=== PATIENT | male | born 1980 | race Caucasian/White ===

== ENCOUNTER 2024-06-19 07:48 | Outpatient (OUT) | payer OTHER, SELFPAY ==
--- NOTE | 2024-06-19 07:57 | CA_ITS ---
Patient Name: ELEAZAR HARRISON MR#: [id number] : 1980 Exam Date: 06/19/2024 Ordering Doctor: SARAH SANTOS ECHOCARDIOGRAM REPORT PROCEDURE: CA ECHO W/ CON INDICATIONS: JOHNSON COMPARISON: None. DESCRIPTION: COMPLETE ECHOCARDIOGRAM Real-time transthoracic echocardiography with 2D, M-mode, spectral and color flow Doppler performed. QUALITY: Technical quality was good. LEFT VENTRICLE: Normal chamber size. Normal left ventricular wall thickness. Global left ventricular systolic function is mildly decreased. Visual estimation of left ventricular ejection fraction is 45-50%. Abnormal septal motion due to paced rhythm LV EF: DIASTOLIC: ATRIAL SEPTUM: LEFT ATRIUM: Normal chamber size. RIGHT ATRIUM: Mild dilatation. RIGHT VENTRICLE: Mild dilatation. Normal right ventricular systolic function. Pacer wire present. TRICUSPID VALVE: Normal mobility and thickness. No stenosis with trivial regurgitation. No evidence of pulmonary hypertension. RVSP 28mmHg MITRAL VALVE: Normal mobility and thickness. No evidence of mitral valve stenosis. There is no mitral annular calcification. Trivial mitral regurgitation. AORTIC VALVE: Normal trileaflet appearance. No visible sclerosis. Normal leaflet mobility. No evidence of aortic valve stenosis. No aortic regurgitation. AORTIC ROOT: Normal diameter and appearance. PULMONIC VALVE: Normal thickness and mobility. No stenosis. No regurgitation. PERICARDIUM: Anterior free space C/W fatty tissue IVC: Collapes with inspirations. Normal size. PLEURA: CONCLUSION: Normal left ventricle chamber size. Normal left ventricular wall thickness. Global left ventricular systolic function is mildly decreased. Visual estimation of left ventricular ejection fraction is 45-50%. Abnormal septal motion due to paced rhythm Mild RV dilatation. Normal right ventricular systolic function. Pacer wire present. Normal right sided pressures Trace mitral and tricuspid regurgitation Adult Echocardiography Procedure Report Left Ventricle LVEDD (3.7 - 5.6 cm): 5.13 cm LVESD (2.2 - 4.0 cm): 3.34 cm LVIVS thickness (0.6 - 1.2 cm): 0.87 cm LVPW thickness (0.5 - 1.0 cm): 0.94 cm e': 0.09 m/s E - e': 8.42 LVOT Max Gradient: 2.61 mm[Hg] LVOT Area (cm2): 0.81 m/s Peak Velocity (LVOT): 0.81 m/s Mean Velocity (LVOT): 0.52 m/s LVOT Diameter 1.95 cm Left Ventricular Ejection Fraction: 52.00 % Left Atrium LA Volume Index (2D A2C): 34.37 ml/m2 Left Atrium Systolic Dimension: 3.99 cm Mitral Valve MV E to A Ratio: 1.22 MV Max Gradient: MV Mean Gradient: Mitral Valve A-Wave Peak Velocity: 0.60 m/s Mitral Valve E-Wave Peak Velocity: 0.73 m/s Cardiovascular Orifice Area: Right Ventricle RV Internal Diastolic Dimension: 3.99 cm Aorta AO Root Diam: 2.96 cm Ascending Ao Diam: 2.77 cm Aortic Valve AoV Area (Peak Nickolas): 2.22 cm2, 2.22 cm2 AoV Area (VTI): 2.75 cm2, 2.[address]: Pressure Half-Time: Peak Velocity(Antegrade Flow): 1.09 m/s Peak Gradient(Antegrade Flow): 4.74 mm[Hg] Mean Velocity(Antegrade Flow): 0.81 m/s Mean Gradient(Antegrade Flow): 2.97 mm[Hg] Velocity Time Integral: 22.29 cm Tricuspid Valve Peak Velocity (Regurgitant Flow): 2.51 m/s, 2.40 m/s, 2.46 m/s Peak Velocity: Pulmonic Valve Mean Gradient: 2.76 mm[Hg], 3.16 mm[Hg], 3.95 mm[Hg] Mean Velocity: 0.77 m/s, 0.83 m/s, 0.92 m/s Peak Velocity: 1.25 m/s Peak Gradient: 5.31 mm[Hg], 6.00 mm[Hg], 7.51 mm[Hg] Right Atrium Right Atrium Systolic Pressure: 79.62 ml, 79.62 ml Dictated by: Casey Berry MD on 06/19/2024 at 16:55 Approved by: Casey Berry MD on 06/19/2024 at 17:21
[2024-06-19] MEDS: SULFUR HEXAFLUORIDE MICROSPHR 25 MG/5 ML VIAL IV (09:17)
== END 2024-06-19 07:49 | disposition home or self-care (01) ==
LOC: CARD 07:49
PROVIDERS: PCP Nurse Practitioner Family; Visit Provider Internal Medicine Cardiovascular Disease
DX: R06.09 Other forms of dyspnea (principal)
CPT/HCPCS: 71046; C8929; Q9950

== ENCOUNTER 2024-06-19 08:56 | Outpatient (OUT) | payer OTHER, SELFPAY ==
--- NOTE | 2024-06-19 08:59 | XR_ITS ---
The [address] [address] Patient Name: ELEAZAR HARRISON MRN: [id number] date: 1980 Sex: M Assigned Patient Location: RAD Current Patient Location: RAD Accession/Order Number: [id number] Exam Date: 06/19/2024 09:03 Report Date: 06/19/2024 12:51 At the request of: SARAH SANTOS Procedure: XR chest 2V PROCEDURE: XR chest 2V DATE: 06/19/2024 9:03 AM EST COMPARISONS: 02/20/2011 CLINICAL INDICATION: 43 years Male Dyspnea On Exertion FINDINGS: The cardiomediastinal silhouette and pulmonary vasculature are within normal limits. Electronic cardiac device overlying the upper left chest is stable in appearance and position. The lungs are clear. There is no evidence of pleural effusion or pneumothorax. XR/XR chest 2V IMPRESSION: Chest radiograph is within normal limits. Electronically authenticated by: PANKAJ MAURICIO Date: 06/19/2024 12:51
== END 2024-06-19 08:57 | disposition home or self-care (01) ==
LOC: RAD 08:56
PROVIDERS: PCP Nurse Practitioner Family; Visit Provider Internal Medicine Cardiovascular Disease
DX: R06.09 Other forms of dyspnea (principal)
CPT/HCPCS: 71046

== ENCOUNTER 2025-04-17 07:38 | Outpatient (OUT) | payer OTHER, SELFPAY ==
--- OUTSIDE RECORDS SUMMARY | 2025-03-14 04:34 | XMS_ITS | Continuity of Care Document ---
Author Box [facility] Address [address] [facility] [place] [address] Phone Care Team Providers Care Cyber Workforce Developer And Manager Name Role Phone Sara Yee CNP, CNP Unavailable Un available Allergies, Adverse Reactions, Alerts Substance Reaction Status Criticality No Known Allergies Active No Inform ation Medications Medication Instructions Dosage Effective Dates (start - stop) Status Comments azelastine 137 mcg (0.1 %) nasal spray instill 2 sprays into each nostril once daily - Active fluticasone propionate 50 mcg/actuation nasal spray,suspension spray 2 sprays in each nostril once daily - Active buspirone 15 mg tablet TAKE 1 TABLET TWICE A DAY - Active Zoloft 100 mg tablet take 1 tablet by or al route every day 100 MG - Active doxepin 75 mg capsule take 1 capsule by oral route every day at bedtime 75 MG - Active Zyrtec 10 mg tablet take 1 tablet by ora l route every day 10 MG - Active lisinopril 5 mg tablet take 1 tablet by oral route every day 5 MG - Active Procedures Procedure Date NASAL ENDOSCOPY, DX OFFICE/OUTPATIENT VISIT, NEW OFFICE/OUTPATIENT VISIT, EST Complex e/m visit add on IMMUNIZATION ADMIN FLU VACCINE NO PRESERV 3 & > OFFICE/OUTPATIENT VISIT, NEW OFFICE/OUTPATIENT VISIT, [facility] OFFICE/OUTPATIENT VISIT, [facility] INFLUENZA ASSAY W/OPTIC INFLUENZA ASSAY W/OPTIC Advance Directives Directive Yes / No Effective Date File Name No Information Encounters Encounter Description Practice Location Reason(s) For Visit Diagnoses Date Provider Providers Copied on Encounter [facility], [address] [place] [address] B, [place], [place], [id number] , tel:[phone] Formerly [facility] No Information 5 Paulette Ruiz. [address] [facility], [place], [place], [id number], [place]. tel:[phone] OFFICE/OUTPA TIENT VISIT, [facility], [address] [place] [address] B, [place], [place], [id number] , [place] tel:[phone] [facility] Sinus issues (chief complaint) Nasal congestionPo stnasal dripDeviated nasal septumOther chronic sinusitisOSA (obstructive sleep apnea)Allerg ic rhinitis, unspecified seasonality, unspecified triggerVitam in D deficiencyNa emerson turbinate hypertrophy 5 Ben Tucker. [address], [place], [place], [id number], [place]. tel:[phone] Referring Provider: Caitlin Contreras MD, [address], [place], [address]. tel:[phone] OFFICE/OUTPA TIENT VISIT, [facility], [address] [place] [address] B, [place], [place], [id number] , [place] tel:[phone] [facility] Follow Up of Anxiety (chief complaint)Fol low Up of Hypertension (chief complaint)RONALD (chief complaint) Essential hypertension Anxiety, generalizedI nsomnia, unspecified typeObstruct lj sleep apneaSick sinus syndromePres ence of cardiac pacemaker 5 Zakiya Garcia. [address] [facility], [id number]. E, [place], [place], [id number], [place]. tel:[phone] Referring Provider: Radha ROTHC, [address] [place] [address] [id number] , [place], [address]. tel:[phone] OFFICE/OUTPA TIENT VISIT, [facility], [address] [place] [address] [address], [place], [place], [id number] , [place] tel:[phone] [facility] establish (chief complaint)Dep ression (chief complaint)blo od pressure (chief complaint)sin us pressure (chief complaint) Essential hypertension Anxiety, generalizedA cute non-recurren t maxillary sinusitis 5 Paulette Ruiz. [address] [place] [address], [place], [place], [id number], [place]. tel:[phone] Referring Provider: Sara fox SOLUTION DESIGNER, [address] [place] [address], [place], [address]. tel:[phone] OFFICE/OUTPA TIENT VISIT, [facility], [address] [place] [address] [address], [place], [place], [id number] , [place] tel:[phone] [facility] rash (chief complaint) Herpes zoster without complication Harvey Correia. [address], [place], [id number], [place]. tel:[phone] Referring Provider: Bren Gabriel PA-C, [address] [place], [address]. tel:[phone] OFFICE/OUTPA TIENT VISIT, [facility], [address] [place] [address] [address], [place], [place], [id number] , [place] tel:[phone] [facility] URI (chief complaint) Flu-like symptomsAcut e bronchitis due to other specified organisms 9 Radha Ervin. [address] [place], [id number], [place]. tel:[phone] Referring Provider: Aziza Garcia CNP, [address] [place], [address]. tel:[phone] Family History Family Member Type Diagnosis Age At Onset Mother Problem (finding) congestive heart failur e Mother Problem (finding) asthma Immunizations Vaccine Date Status Comments Influenza, seasonal, injectable administered Source: New Immuniza tion Record Influenza, injectable, quadrivalent, preservative free, 0.5 mL dosage, Fluarix\Fluzone\Flulaval Quad administered Source: Boxever Agetx Elastera SARS-COV-2 (COVID-19) vaccin e, mRNA, spike protein, LNP, preservative free, 30 mcg/0.3 mL dose , 12 years of age and older (CogMetal Comirnaty) administered Source: Buyospheretx y Tdap administered Source: Public Agency Payers Payer name Insurance type Covered alliance party ID Authoriza tion(s) [facility] [id number] [facility] [id number] Social History Type Description Quantity Date Captured Comments Sex Male Smoking Status No Information Chief Complaint And Reason For Visit No Information Reason For Referral Reason For Referral No Information Plan Of Treatment Date Type Action Status Goal Depression scree zach. Due on due Goal EKG. Due on due Goal Unhealthy drug u se screening. Due on due Goal PSA Screening. Due on due Goal DEXA Scan. Due on due Goal Influenza vaccin e. Due on due Goal FIT. Due on due Goal Tobacco screenin g. Due on due Goal URINALYSIS NONAU TO W/O SCOPE. Due on due Goal FIT-DNA. Due on due Goal Glucose. Due on due Goal CT-Colonography. Due on due Goal Hepatitis C scre ening. Due on due Goal ECG. Due on due Goal BMP. Due on due Goal Urinalysis. Due on 25 due Goal Lipid Panel. Due on 025 due Goal Diabetes screeni ng. Due on due Goal Tdap. Due on due Goal Tdap. Due on due Goal EKG. Due on due Goal Glucose. Due on due Goal Hepatitis C scre ening. Due on due Goal FIT-DNA. Due on due Goal Influenza vaccin e. Due on due Goal Depression scree zach. Due on due Goal URINALYSIS NONAU TO W/O SCOPE. Due on due Goal DEXA Scan. Due on due Goal CT-Colonography. Due on due Goal Tobacco screenin g. Due on due Goal FIT. Due on due Goal Unhealthy drug u se screening. Due on due Goal PSA Screening. Due on due Goal Urinalysis. Due on due Goal BMP. Due on due Goal ECG. Due on due Goal Diabetes screeni ng. Due on due Goal Lipid Panel. Due on due Goal Diabetes screeni ng. Due on due Goal ECG. Due on due Goal BMP. Due on due Goal Urinalysis. Due on due Goal Lipid Panel. Due on due Goal Tdap. Due on due Goal URINALYSIS NONAU TO W/O SCOPE. Due on due Goal Hepatitis C scre ening. Due on due Goal Tobacco screenin g. Due on due Goal Depression scree zach. Due on due Goal EKG. Due on due Goal Influenza vaccin e. Due on due Goal PSA Screening. Due on due Goal Unhealthy drug u se screening. Due on due Goal Glucose. Due on due Goal DEXA Scan. Due on due Goal Depression scree zach. Due on due Goal Lipid panel. Due on 021 due Goal Td vaccine. Due on 21 due Goal DEXA Scan. Due on due Goal Tdap. Due on due Goal URINALYSIS NONAU TO W/O SCOPE. Due on due Goal Influenza vaccin e. Due on due Goal PSA Screening. Due on due Goal Glucose. Due on due Goal Diabetes Screeni ng. Due on due Goal Glucose. Due on due Goal Depression scree zach. Due on due Goal Lipid panel. Due on 019 due Goal Td vaccine. Due on 19 due Goal DEXA Scan. Due on 9 due Goal Tdap. Due on due Goal URINALYSIS NONAU TO W/O SCOPE. Due on due Goal Influenza vaccin e. Due on due Goal EKG. Due on due Appointment Balbir Jackman BOOKED Appointment Balbir Jackman BOOKED Patient Education Shingles: Care Instruct ions completed Future Order: Lab Order Vitamin D, 25-OH Total ([id number]), Sent on: Sent Future Order: Radiology Order CT Sinus w/o Contrast ([id number]), Sent on: Sent History Of Present Illness Encounter Date Complaint History Of Prese nt Illness Sinus issues Patient has RONALD and had pacemaker placed at age 25 d/t viral infection. Patient c/o recurrent sinus infections and has been treated 4 times in the past year usually with augmentin or amoxicillin, often adding steroid. Last sinus CT was done 4 years ago in [place]. Fractured nose in high school sports. Follow Up of Hypertension Risk f actors include male gender. Pertinent negatives include fatigue. Additional information: managed by cardiology, patient had new pacemaker device placed 11/10/[address] [facility]. And sees cardiology every 6 months. He has heart failure Comments: He is getting an echo rechecked in May. He is seeing cardiology at [facility]. He states he may need a defibrillator at a later date. He was having syncope everyday but since they changed his leads he has only passed out 2-3 times since. Denies chest pain, SOB. He states he has more energy. He states he gets labs from [facility] or [facility]. He states he has history of Sick sinus syndrome and heart failure Follow Up of Anxiety The patient presents with difficulty falling asleep and difficulty staying asleep but denies anxious/fearful thoughts, depressed mood, difficulty concentrating, fatigue, racing thoughts, restlessness or thoughts of or suicide. Comments: He wak es up 2-3am and then takes a couple hours to fall asleep. He states his anxiety is doing. 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 Contreras this month due to chronic sinus infections. Comments: Pt has had sinus pressure for 3 weeks. Blowing green nasal drainage. No ear pain or throat pain. Taking Claritin and using flonase. Also taking Coricidin HBP and Mucinex. Comments: Pt fee ls like medication control anxiety well. Taking Zoloft daily and Buspar twice daily. Comments: Pt was seeing provider in [place], they were switching providers there every 3 months and it was getting frustrated. Pt follows with Cardiology for pacemaker. Will be having surgery soon due to heart wire going bad. Pt follows with [facility] for vision care.Not currently seeing dentist.Has labs done through [facility] in April 2024. blood pressure Depression The patient naeem es any headache. Additional information: Pt currently taking buspirone 15mg 2x daily. establish pt here to jazmin roberts PCP sinus pressure rash (comments) Patient here for evaluation of rash that he believes is shingles. He states he had shingles in 2010. He was never treated for it because it was crusted over before he was evaluated. He is in significant pain in his right axilla.He is especially concerned because his son is immunocompromised.He 1st noticed symptoms on , with itching pain. He thinks he scratched during night it is increased with pain and more blisters been forming through this morning. rash The client prese nts for rash originally diagnosed in 2010. This episode began 3 days ago. The symptom(s) are described as severe and worse. Affected area(s) include R UNDERARM. The client describes the affected area(s) as burning, itchy, oozing, red, stinging and VERY PAINFUL. Aggravating factors include clothing. The symptoms did not improve with calamine lotion or PAIN MEDICATION. Associated symptoms include crusting, erythema (skin), fatigue, myalgia, painful rash and pruritus. Additional information: HAD MILD SHINGLES ON STOMACH 2010... PT STATES HIS PAIN LEVEL IS A 6/10. LOW GRADE FEVER LAST NIGHT OF 100.5. URI (comments) He started with the fever and cough, and body aches. His daughter also has been sick with a cough and an ear ache. URI The symptoms beg an on 09/27/2018. The symptoms have worsened. The patient presents with chills, cough (cough is non-productive), fever (maximum temperature is 103 F), headache and nausea. The patient does not present with abdominal pain, fatigue, myalgia or vomiting. Additional information: Patient reports taking 800mg of Ibuprofen today at 8:30am. Functional Status Date Functional Assessmen t No Information Instructions Date Instruction Additional Infor lai Has been having trou ble staying asleepOn doxepin 50mg at bedtime. Increase dose to 75mg at bedtimeF/U in 6 months, sooner if needed Related to Insomnia, unspecified type On CPAP at bedtime. Actively managed by pulmonology-records requestedF/U in 6 months and as scheduled with specialist Related to Obstructive sleep apnea Actively managed by cardiology at [facility], sooner if needed Related to Sick sinus syndrome Active management pe r Cardiology at [facility] and sees Dr. Juarez at [facility]-records requested On lisinopril dailyEncourage a Mediterranean diet and exerciseF/U in 6 months Related to Essential hypertension Stable. On sertralin e and Buspar. No SE. Continue current doseF/U in 6 months Related to Anxiety, generalized Symptoms well contro lled taking Sertraline and Buspar.Sleeping well taking Doxepin.Continue to monitor symptoms.F/U in 6 months and prn. Related to Anxiety, generalized Rest. Drink plenty o f fluids.Continue taking allergy medications.Discussed benefits and side effects of Augmentin, take as directed. Motrin or Tylenol OTC as directed prn.F/U if symptoms persist or worsen.Pt states chronic sinus infections, discussed CT sinuses for recurrent symptoms and or refer to ENT. Pt voices understanding. Related to Acute non-recurrent maxillary sinusitis Active management per Cardiology . Related to Essential hypertension Medications as presc ribed. Recommend acetaminophen/ibuprofen as needed for pain. Return to [facility] in not improving 3-5 days. Avoid people who are at risk for infection, e.g people who were never exposed to chicken pox, or on chemotherapy. Related to Herpes zoster without complication Begin tapered predni sone as prescribed and continue with rest and fluids. Add Tessalon Perles /to be used as needed for relief of cough. Follow up if not improved with this illness in 10 days. Related to Acute bronchitis due to other specified organisms the flu testing has come back negative. Discussed with the patient his symptoms still suggest he may have had influenza in the beginning of this illness. Related to Flu-like symptoms Assessments Type Assessment Date No Information Patient Care Teams Name Effective Dates (start - stop) Status Members No Information
--- OUTSIDE RECORDS SUMMARY | 2025-04-17 07:42 | XMS_ITS | Encounter Summary ---
Author Organization [facility] Address [address] [place] [address] Care Team Providers Care Board Attendant Name Role Phone Edwin Mcgowan MD Primary Care Provider [phone] Virgilio Pena MD Unavailable Andrea Galvez MD Unavailable Erwin Waite MD Unavailable [phone] Sara Yee PATENT COUNSEL Primary Care Provide r Source Comments In the event this information is protected by the Federal Confidentiality of Alcohol and Drug AbusePatient Records regulations: The Federal rules restrict any use of the information to criminally investigate or prosecute any alcohol or drug abuse patient.[facility] Encounter Details Date Type Department Care Team (Late st Contact Info) Description 09/29/2024 Get Medical Advice Cardiology [address] [place] [address] Mario Juarez MD [address] [place] [address] Scheduling testing before surgery Social History Tobacco Use Types Packs/Day Years Used Date Smoking Tobacco: Former Cigarettes 1 7 1 08/12/1998 - 06/11/2006 Smokeless Tobacco: Current Chew Alcohol Use Standard Drinks/Week Comments Not Currently 0 (1 standard drink = 0.6 oz pur e alcohol) [facility] Area Deprivation Index Answer Date Ronaldo rded National Score (1-100), lower number is lower ri sk 81 06/01/2024 State Score (1-10), lower number is lower risk 7 06/01/2024 Data from: https://www.neighborhoodatlas.medicine.[facility].edu/. Last address used for calculation [address] 06/01/2024 Sex and Gender Information Value Date Recorded Sex Assigned at Male 10/07/2020 7:02 AM EDT Legal Sex Male 7:31 AM EST Gender Identity Male 10/07/2020 7:02 AM EDT Sexual Orientation Straight 10/07/2020 7: 02 AM EDT documented as of this encounter Plan of Treatment Not on file documented as of this encounter Goals Goal Patient Goal Type Associated Problems Recent Progress Patient-Stated? Author Blood Pressure < 130/80 Blood Pressure 135/77( 025 9:37 AM EDT) No Andrea Galvez MD documented as of this encounter Visit Diagnoses Not on filedocumented in this encounter Care Teams Board Attendant Relationship Specialty Start Date End Date Edwin Mcgowan MD [address] [place] [address] PCP - General Family Medicine 10/07/20 10/15/24 Sara Yee CNP [facility] [place] [address] PCP - General Family Medicine 10/16/24 [place] [address] [place] [address] [facility] 10/07/20 Andrea Galvez MD [address] [place] [address] Primary Staff Physician Cardiology 06/01/24 Erwin Waite MD [address] [address] [facility] 08/14/24 10/15/24 documented as of this encounter
--- OUTSIDE RECORDS SUMMARY | 2025-04-17 07:42 | XMS_ITS | Encounter Summary ---
Author Organization [facility] [employer] [facility] [employer] Address [id number] [address] [place] [address] Care Team Providers Care Home Aid Name Role Phone Services, [facility] Primary Care Provider Encounter Details Date Type Department Care Team (Late st Contact Info) Description 01/04/2024 [facility]phone [facility] [address] [phone] Sheeba Villalta Social History Tobacco Use Types Packs/Day Years Used Date Smoking Tobacco: Former Cigarettes 2 7 0 11/09/1996 - 11/10/2003 Smokeless Tobacco: Current Chew Alcohol Use Standard Drinks/Week Comments Yes 0 (1 standard drink = 0.6 oz pur e alcohol) 1-2 times per year Childcare Answer Date Recorded Childcare Unknown 12/21/2018 Employment Answer Date Recorded Employment Unknown 12/21/2018 Purpose - Life Answer Date Recorded Purpose and direction in life Unknown Sex and Gender Information Value Date Recorded Sex Assigned at Not on file Legal Sex Male 12:08 PM EDT Gender Identity Not on file Sexual Orientation Not on file documented as of this encounter Miscellaneous Notes * Telephone Encounter - Sheeba Villalta - 01/04/2024 9:53 AM EDT PATIENT HAS BEEN A NO SHOW FOR HIS LAST 2 APPOINTMENTS WITH NICKI ORELLANA PLEASE CHECK IN WITH NURSE BEFORE RESCHEDULING PLEASE documented in this encounter Plan of Treatment Upcoming Encounters Date Type Department Care Team (Late st Contact Info) Description 06/20/2025 2:30 PM EST Office Visit [facility] [address] [address] Nicki Orellana, HEATER ROOM HELPER-DOMESTIC HOUSEKEEPER [address] [facility] [facility], [address] [place] [address] documented as of this encounter Visit Diagnoses Not on filedocumented in this encounter Care Teams Home Aid Relationship Specialty Start Date End Date Services, [facility] [address] [place] PCP - General Family Medicine 04/24/20 documented as of this encounter
--- OUTSIDE RECORDS SUMMARY | 2025-04-17 07:42 | XMS_ITS | Clinical Summary ---
Author Organization [facility] Address [address], [address] [place] [address] Care Team Providers Care Lavatory Attendant Name Role Phone Lissa Galindo APRN, NP Primary Care Provider + Allergies No known active allergies Medications metoprolol succinate ER (TOPROL-XL) 50 MG XL tablet Take 50 mg by mouth 2 times daily Active sertraline (ZOLOFT) 100 MG tablet Take 150 mg by mouth daily Active pravastatin (PRAVACHOL) 20 MG tablet Take 20 mg by mouth daily Active doxepin (SINEQUAN) 10 MG capsule Take 10 mg by mouth nightly Active Social History Tobacco Use Types Packs/Day Years Used Date Smoking Tobacco: Never Smokeless Tobacco: Current Chew Sex and Gender Information Value Date Recorded Sex Assigned at Not on file Legal Sex Male 9:19 AM EST Gender Identity Not on file Sexual Orientation Not on file Last Filed Vital Signs Vital Sign Reading Time Taken Comments Blood Pressure 113/70 04/15/2022 11:41 PM EDT Pulse 72 04/15/2022 11:41 PM EDT Temperature 36.8 C (98.2 F) 04/15/2022 7:53 PM EDT Respiratory Rate 19 04/15/2022 10:26 PM EDT Oxygen Saturation 97% 04/15/2022 11:41 PM EDT Inhaled Oxygen Concentration - - Weight 109.8 kg (242 lb) 04/15/2022 7:51 PM EDT Height 180.3 cm (5' 11 ) 04/15/2022 7:51 PM EDT Body Mass Index 33.75 04/15/2022 7:51 PM EDT Plan of Treatment Not on file Procedures Procedure Name Priority Date/Time Associated Diagnosis Comments LIPID PANEL Routine 02/01/2014 9:19 AM EDT from Last 3 Months or Most Recently Relevant to Health Maintenance Results * (ABNORMAL) Lipid panel (02/01/2014 9:19 AM EDT) Cholesterol 184 <200 mg/dL 02/01/2014 10:50 AM EDT [facility] Comment: Cholesterol Guidelines: <200 Desirable 200-240 Borderline >240 Undesirable HDL 34(L) >40 mg/dL 02/01/2014 10:50 AM EDT [facility] Comment: HDL Guidelines: <40 Undesirable 40-59 Borderline >59 Desirable LDL Cholesterol 120 0 - 130 mg/dL 02/01/2014 10:50 AM EDT [facility] Comment: LDL Guidelines: <100 Desirable 100-129 Near to/above Desirable 130-159 Borderline >159 Undesirable Direct (measured) LDL and calculated LDL are not interchangeable tests. Chol/HDL Ratio 5.0(H) <5 02/01/2014 10:50 AM EDT [facility] Triglycerides 151(H) <150 mg/dL 02/01/2014 10:50 AM EDT [facility] Comment: Triglyceride Guidelines: <150 Desirable 150-199 Borderline 200-499 High >499 Very high Based on AHA Guidelines for fasting triglyceride, April 2012. VLDL 30 1 - 30 mg/dL 02/01/2014 10:50 AM EDT [facility] Comment: Performed at [address] [place] [address] [phone] 02/01/2014 9:19 AM EDT 02/01/2014 9:20 AM EDT us Erwin Waite MD CHEMISTRY ORDERABLES Final Re sult [facility] [address] [place] [id number], [facility] [phone] [facility] from Last 3 Months or Most Recently Relevant to Health Maintenance Insurance [employer] Care Teams Lavatory Attendant Relationship Specialty Start Date End Date Lissa Galindo APRN - NP [address] [place] [id number] PCP - General 04/15/22
--- OUTSIDE RECORDS SUMMARY | 2025-04-17 07:42 | XMS_ITS | Encounter Summary ---
Author Organization [facility] Address [address] [place] [address] Care Team Providers Care Dress Cutter Name Role Phone Virgilio Pena MD Unavailable Andrea Galvez MD Unavailable Sara Yee [facility] Primary Care Provide r Source Comments In the event this information is protected by the Federal Confidentiality of Alcohol and Drug AbusePatient Records regulations: The Federal rules restrict any use of the information to criminally investigate or prosecute any alcohol or drug abuse patient.[facility] Encounter Details Date Type Department Care Team (Late st Contact Info) Description 11/09/2024 Get Medical Advice Cardiology [address] [place] [address] Mario Juarez MD [address] [place] [address] Surgery tomorrow Social History Tobacco Use Types Packs/Day Years Used Date Smoking Tobacco: Former Cigarettes 1 7 1 08/12/1998 - 06/11/2006 Smokeless Tobacco: Current Chew Alcohol Use Standard Drinks/Week Comments Not Currently 0 (1 standard drink = 0.6 oz pur e alcohol) Area Deprivation Index Answer Date Ronaldo rded National Score (1-100), lower number is lower ri sk 81 06/01/2024 State Score (1-10), lower number is lower risk 7 06/01/2024 Data from: https://www.neighborhoodatlas.medicine.[facility].edu/. Last address used for calculation [address] [...] on filedocumented in this encounter Care Teams Dress Cutter Relationship Specialty Start Date End Date Sara Yee CNP [address] [place] [address] PCP - General Family Medicine 10/16/24 [place] [address] [place] [address] Veterinary Laboratory Diagnostician Cardiology 10/07/20 Andrea Galvez MD [address] [place] [address] Primary Staff Physician Cardiology 06/01/24 documented as of this encounter
--- OUTSIDE RECORDS SUMMARY | 2025-04-17 07:42 | XMS_ITS | Clinical Summary ---
Author Organization [facility] Address [address] [place] [address] Care Team Providers Care Instrumentation Manager Name Role Phone Sara Yee MD Primary Care Provider + Allergies No known active allergies Medications busPIRone (Buspar) 15 mg tablet Take 15 mg by mouth in the morning and 15 mg in the evening. 1 Active cetirizine (ZyrTEC) 10 mg tablet Take 10 mg by mouth in the morning. Active doxepin (SINEquan) 25 mg capsule Take 50 mg by mouth in the morning. 6 Active sertraline (Zoloft) 100 mg tablet sertraline 100 mg tablet TAKE 1 TABLET BY MOUTH EVERY DAY FOR 30 DAYS Active lisinopril 5 mg tabletIndications :Benign hypertensive heart disease with heart failure (CMS/HCC) Take 1 tablet (5 mg) by mouth once daily as directed. 90 tablet 3 4 Active Active Problems Problem Noted Date Diagnosed Date Anxiety disorder 11/21/2024 Chronic low back pain 11/21/2024 Chronic maxillary sinusitis 11/21/2024 Chronic pansinusitis 11/21/2024 Hypertension 11/21/2024 Insomnia 11/21/2024 Sciatica 11/21/2024 Sick sinus syndrome 09/22/2023 10/12/2023 Benign prostatic hyperplasia without lower urinary tract symptoms 03/19/2022 07/20/2023 Bilateral varicoceles 03/19/2022 07/20/2023 Family history of prostate cancer 03/19/2022 07/20/2023 Sterilization consult 03/19/2022 07/20/2023 Urologic disorders 03/19/2022 07/20/2023 Overview (07/20/2023): 1. Vasectomy 05/07/2022; Undesired fertility with positive post semen analysis status post left side only vasectomy Dr. Javier romero 02/05/2017 with inability to palpate right vas 2. Bilateral varicoceles ultrasound 02/17/2017 3. Family history prostate cancer patient's father and grandfather 4. Asymptomatic benign prostatic hyperplasia 5. Patient requested prostate cancer screening 03/19/2022 6. Subclinical bilateral hydroceles ultrasound 02/17/2017. Cardiomyopathy 05/26/2020 07/20/2023 Cardiovascular stress test abnormal 05/26/2020 07/20/2023 History of fracture of nose 08/08/201903/2024 Recurrent sinusitis 08/08/2019 07/20/2023 Disorder of autonomic nervous system 01/17/2019 07/20/2023 Neurocardiogenic syncope 01/17/2019 024 Allergic rhinitis 08/21/2016 07/20/2023 Non morbid obesity 08/21/2016 07/20/2023 Obstructive sleep apnea 08/21/2016 07/20/19 24 Irritable bowel syndrome 12/10/2009 Gastroesophageal reflux disease 10/04/2009 Cardiac pacemaker in situ 08/17/20062023 Essential hypertension, benign 06/05/2005 0 07/20/2023 Orthostatic hypotension 06/05/2005 07/20/19 24 Other specified general medical examination 05/1307/20/2023 Encounters Date Type Department Care Team Description 03/16/2025 12:25 PM EDT Ancillary Procedure [facility] [address] [facility] [place] [address] Adjustment and management of cardiac pacemaker 03/15/2025 Orders Only [facility] [address] [place] [address] Virgilio Travis MD 03/15/2025 Orders Only [facility] [address] [place] [address] Virgilio Travis MD 02/28/2025 6:05 AM EDT Ancillary Procedure [facility] [address] [place] [address] Adjustment and management of cardiac pacemaker from Last 3 Months Immunizations Immunization Administration Dates Next Due Influenza, injectable, MDCK, preservative free, quadrivalent 06/30/2023,06/29/2022,04/24/2020,2016 Influenza, injectable, quadr ivalent, preservative free 05/23/2021,05/18/2018 Influenza, seasonal, injectable 04/21/2012,04/29 Tdap 12/17/2016 Family History Medical History Relation Name Comments Malig Hypertension Father Coronary artery disease Maternal Grandfather Hypertension Maternal Grandfather Hypertension Maternal Grandmother Coronary artery disease Mother Hypertension Mother Coronary artery disease Paternal Grandfather Hypertension Paternal Grandfather Stroke Paternal Grandfather Cancer Paternal Grandmother Hypertension Paternal Grandmother Relation Name Status Comments Brother Alive Father Alive Maternal Grandfather Maternal Grandmother Mother Paternal Grandfather Paternal Grandmother Sister Alive Social History Tobacco Use Types Packs/Day Years Used Date Smoking Tobacco: Former Cigarettes Smokeless Tobacco: Current Tobacco Cessation:Ready to Q uit: Not Asked; Counseling Given: Not Answered Comments:chew Alcohol Use Standard Drinks/Week Comments Yes 0 (1 standard drink = 0.6 oz pur e alcohol) occasional [place] Safety & Environment Answer Date Rec orded Fear of Current or Ex-Partner Not on file Emotionally Abused Not on file 09/02/2023 Physically Abused Not on file 09/02/2023 Sexually Abused Not on file 09/02/2023 Physically or Sexually Abused Not on file Sex and Gender Information Value Date Recorded Sex Assigned at Not on file Legal Sex Male 11:56 PM EDT Gender Identity Not on file Sexual Orientation Not on file Last Filed Vital Signs Vital Sign Reading Time Taken Comments Blood Pressure 132/81 11/21/2024 11:34 AM EDT Pulse 74 11/21/2024 11:34 AM EDT Temperature 36.7 C (98 F) 11/22/2020 1:24 PM EDT Respiratory Rate 13 10/12/2023 1:47 PM EDT Oxygen Saturation 98% 11/21/2024 11:34 AM EDT Inhaled Oxygen Concentration - - Weight 110 kg (243 lb) 11/21/2024 11:34 AM EDT Height 180.3 cm (5' 11 ) 11/21/2024 11:34 AM EDT Body Mass Index 33.89 11/21/2024 11:34 AM EDT Plan of Treatment Upcoming Encounters Date Type Department Care Team (Late st Contact Info) Description 05/15/2025 1:30 PM EST Office Visit [facility] [address] [place] [address] Virgilio Travis MD [address] [place] [phone] Health Maintenance Due Date Last Done Comments CT Colonography 1979 Colonoscopy 1979 Colorectal Cancer Screening 1979 FIT-DNA 1979 FIT 1979 FOBT 1979 Sigmoidoscopy 1979 Depression Screening 1991 Hepatitis B Vaccines (1 of 3 - 19+ 3-dose series) 12/29/1998 Pneumococcal Vaccine: Pediatrics (0 to 5 Years) and At-Risk Patients (6 to 64 Years) (1 of 2 - PCV) 12/29/1998 COVID-19 Vaccine (2 - season) 2025 06/24/2021, 06/24/2021 Influenza Vaccine (#1) 2025 , 06/30/2023, 06/29/2022, Additional history exists Adult Tetanus 12/17/2026 12/17/2016 Zoster Vaccines (1 of 2) 12/29/2029 HIB Vaccines Aged Out No longer eligi ble based on patient's age to complete this topic HPV Vaccines Aged Out No longer eligi ble based on patient's age to complete this topic IPV Vaccines Aged Out No longer eligi ble based on patient's age to complete this topic Meningococcal B Vaccine Aged Out No l onger eligible based on patient's age to complete this topic Meningococcal Vaccine Aged Out No tamie val eligible based on patient's age to complete this topic Rotavirus Vaccines Aged Out No longer eligible based on patient's age to complete this topic Procedures Procedure Name Priority Date/Time Associated Diagnosis Comments CARDIAC DEVICE CHECK CHECK - REMOTE Routine 03/19/2025 9:47 AM EDT Adjustment and management of cardiac pacemaker CARDIAC DEVICE CHECK CHECK - REMOTE Routine 03/19/2025 9:45 AM EDT Adjustment and management of cardiac pacemaker CARDIAC DEVICE CHECK - REMOTE - PACEMAKER Routine 03/15/2025 12:00 AM EDT CARDIAC DEVICE CHECK - REMOTE - PACEMAKER Routine 03/15/2025 12:00 AM EDT from Last 3 Months Results * CARDIAC DEVICE CHECK - REMOTE - PACEMAKER (03/19/2025 9:47 AM EDT) Only the most recent of2 resultswithin the time period is included. Virgilio Travis MD CV IMPLANTABLE CARDIAC DEVICE [place] [employer] Final Result CPACS * Cardiac device check - Remote pacemaker (03/15/2025 12:00 AM EDT) Only the most recent of2 resultswithin the time period is included. Anatomical Region Laterality Modality Other 03/15/2025 Virgilio Travis MD CV IMPLANTABLE CARDIAC DEVICE [place] [employer] Final Result from Last 3 Months Insurance [employer] Care Teams Instrumentation Manager Relationship Specialty Start Date End Date Sara Yee MD [address] [place] [address] PCP - General Nurse Practitioner 11/21/24
--- OUTSIDE RECORDS SUMMARY | 2025-04-17 07:42 | XMS_ITS | CCD ---
Author Organization [facility] Care Team Providers Care Control Analyst Name Role Phone SILVESTRE SOMMERS Attending Unavailable SILVESTRE SOMMERS Consulting Unavailable SILVESTRE SOMMERS Admitting Unavailable Fito Kaplan Primary Care Provider VIRGILIO SANTOS Attending Unavailable VIRGILIO SANTOS Admitting Unavailable MONIQUE HONG Referring Unavailable MONIQUE HONG Primary Care Unavailable Josie FINAL FINISHER - GRAPHICS COORDINATOR, [facility] Primary Care Provider LISET MADSEN Attending Unavailable LISSA GALINDO Primary Care Unavailable Deandre HALLMAN, Charity Montero Attending NICKI Quijano Attending Unavailable ZEFERINO DE LA TORRE Referring Unavailable SERVICES, [facility] NICKI Burgos Attending Unavailable [facility]it [facility] Primary Care Provider Virgilio Pena MD Unavailable Andrea Baez MD Unavailable Virgilio Pena MD Unavailable Erwin Waite MD Unavailable Services, [facility] Primary Care Provider Andrea Baez MD Unavailable Joanna Yee CNP Primary Care Provide r CLINT HILTON Referring Unavailable JOANNA YEE Primary Care UnavailCLINT Santos Attending Unavailable JOANNA YEE Primary Care Unavaila CLINT Cota Referring Unavailable JOANNA YEE Primary Care Unavaila CL[place] C[place] Referring Unavailable JOANNA YEE Primary Care Unavaila ble CLINT HILTON Referring Unavailable JOANNA YEE Primary Care Unavaila CLINT Cota Referring Unavailable JOANNA YEE Primary Care Unavaila CLINT Cota Admitting Unavailable LIAD, CLINT Attending Unavailable JOANNA YEE Primary Care Unavaila ble LIDA, CLINT Referring Unavailable JOANNA YEE Primary Care Unavaila ble CLINT HILTON Attending Unavailable LIDA, CLINT Referring Unavailable HAL, NAGHMANA Primary Care Unavailable ANDREA BAEZ Attending Unavailable DANIELLEVIRGILIO Recinos Referring Unavailable HAL, NAGHMANA Primary Care Unavailable HIGUCHIANDREA Referring Unavailable HAL, NAGHMANA Primary Care Unavailable ANDREA BAEZ Referring Unavailable HAL, NAGHMANA Primary Care Unavailable LIDA, CLINT Referring Unavailable JOANNA YEE Primary Care Unavaila VIRGILIO Cullen Referring Unavailable DANIELLEVIRGILIO Recinos Attending Unavailable DANIELLEVIRGILIO Recinos Referring Unavailable DANIELLE, VIRGILIO Referring Unavailable DANIELLEVIRGILIO Referring Unavailable DANIELLEVIRGILIO Referring Unavailable DANIELLEVIRGILIO Attending Unavailable DANIELLE, VIRGILIO Referring Unavailable DANIELLE, VIRGILIO Attending Unavailable Allergies Allergy Classification Reported Allergen(s) Allergy Type Date of Onset Reaction(s) Facility (1 source) No Known Medication Allergies; Translations: [No Known Medication Allergies] Propensity to adverse reactions to drug (disorder) [facility] Repository Medications Current Medications Medication Drug Class(es) Dates Sig (Normalized) Sig (Original) busPIRone hydrochloride 15 mg oral tablet (20 sources) Start: 11-12-2020 take 1 tablet by mouth twice daily busPIRone (BUSPAR) 15 mg tablet Take 1 tablet by mouth twice daily. 11/12/2020 Active cetirizine hydrochloride 10 mg oral tablet (20 sources) Histamine-1 Receptor Antagonist take 1 tablet by mouth once daily cetirizine (ZYRTEC) 10 mg tablet Take 10 mg by mouth once daily. Active cetirizine (ZyrT EC) 10 mg capsule daily. Active doxepin hydrochloride 25 mg oral capsule (20 sources) Tricyclic Antidepressant Start: 06-02-2016 take 1 capsule by mouth once daily doxepin (SINEquan) 25 mg capsule Take 1 capsule (25 mg total) by mouth nightly. 06/02/2016 Active take 1 capsule by mo uth once daily at bedtime doxepin capsule 50 mg Take 50 mg by mout h daily at bedtime. Active take 1 capsule by mouth once kristi ly doxepin (SINEQUAN) 10 MG capsule Take 10 mg by mouth nightly 0 Active ibuprofen 800 mg oral tablet (20 sources) Nonsteroidal Anti-inflammatory Drug Start: 03-01-2017 take 1 tablet by mouth every six hours as needed for pain ibuprofen (ADVIL,MOTRIN) 800 mg tablet TAKE 1 TABLET BY MOUTH EVERY 6 HOURS NEEDED FOR PAIN UP TO 15 DAY 15 tablet 0 03/01/2017 Active Start: 03-13-2005 ADVIL 200 MG O RAL CAP as necessary 0 03/13/2005 Active Comment on above: as necessary lisinopril 5 mg oral tablet (20 sources) Angiotensin Converting Enzyme Inhibitor take 1 tablet by mouth once daily lisinopril (ZESTRIL, PRINIVIL) 5 mg tablet Take 5 mg by mouth once daily. Active melatonin 10 mg oral tablet (8 sources) melatonin 10 mg tablet daily. Active nitroglycerin 0.4 mg sublingual tablet (1 source) Nitrate Vasodilator Start: 04-15-20 nitroGLYCERIN (NITROSTAT) SL tablet 0.4 mg pravastatin sodium 20 mg oral tablet (1 source) HMG-CoA Reductase Inhibitor take 1 tablet by mouth once daily pravastatin (PRAVACHOL) 20 MG tablet Take 20 mg by mouth daily 0 Active sertraline 100 mg oral tablet (20 sources) Serotonin Reuptake Inhibitor take 1 tablet by mouth once daily sertraline (ZOLOFT) 100 mg tablet Take 100 mg by mouth once daily. Active sertraline (ZOLO FT) 100 MG tablet Take 150 mg by mouth daily 0 Active tiZANidine 4 mg oral tablet (8 sources) Central alpha-2 Adrenergic Agonist Start: 12-02-2022 take 1 tablet by mouth every six hours as needed tiZANidine (ZANAFLEX) 4 mg tablet Take 1 tablet (4 mg total) by mouth every 6 (six) hours as needed for muscle spasms. 30 tablet 12/02/2022 Active Completed/Discontinued Medications Medication Drug Class(es) Dates Sig (Normalized) Sig (Original) aspirin 81 mg delayed release oral tablet (2 sources) Platelet Aggregation Inhibitor, Nonsteroidal Anti-inflammatory Drug End: 06-01-2024 take 1 tablet by mouth once daily aspirin, enteric coated (ASPIRIN, ENTERIC COATED) 81 mg EC tablet Take 81 mg by mouth once daily. 06/01/2024 Discontinued (Discontinued by Patient) carvedilol 3.125 mg oral tablet (2 sources) alpha-Adrenergic Idris, beta-Adrenergic Idris End: 06-01-2024 take 1 tablet by mouth twice daily at mealtime carvedilol (COREG) 3.125 mg tablet Take 3.125 mg by mouth twice daily with meals. 06/01/2024 Discontinued (Discontinued by Patient) glycopyrrolate 1 mg oral tablet (2 sources) End: 06-01-2024 take 1 tablet by mouth once daily glycopyrrolate (ROBINUL) 1 mg tablet Take 1 mg by mouth once daily. 06/01/2024 Discontinued (Discontinued by Patient) iv contrast (will be provided with radiology test) (4 sources) Start: 09-20-2024 End: 11-07-2024 inject 1 dose intravenously once iv contrast (will be provided with radiology test) Indications: Paroxysmal atrial fibrillation (HCC) CT Cardiac - No IV access, insert saline lock prior to the sedation, infusion, injection for imaging exam. Discontinue saline lock post exam. If Pt. has a central line or IVAD, may access for administration according to line specific nursing protocol. Once exam is complete flush line and de-access according to line specific nursing protocol in the CT contrast administration guidelines link. 1 Each 09/20/2024 11/07/2024 Discontinued Start: 09-20-2024 inject 1 dose intravenously on ce iv contrast (will be provided with radiology test) Indications: Paroxysmal atrial fibrillation (HCC) CT Cardiac - No IV access, insert saline lock prior to the sedation, infusion, injection for imaging exam. Discontinue saline lock post exam. If Pt. has a central line or IVAD, may access for administration according to line specific nursing protocol. Once exam is complete flush line and de-access according to line specific nursing protocol in the CT contrast administration guidelines link. 1 Each 09/20/2024 Active 24 hr metoprolol succinate 100 mg extended release oral tablet (3 sources) beta-Adrenergic Idris Start: 08-11-2006 METOPR OLOL SR 100 MG 24 HR TAB Take one(1) tablet daily. 0 08/11/2006 Active take 1 tablet by mouth twice kristi ly metoprolol succinate ER (TOPROL-XL) 50 MG XL tablet Take 50 mg by mouth 2 times daily 0 Active Comment on above: Take one(1) tablet d aily. pyridostigmine bromide 60 mg oral tablet (2 sources) End: take 1 tablet by mouth once daily pyridostigmine (MESTINON) 60 mg tablet Take 60 mg by mouth once daily. 06/01/2024 Discontinued (Discontinued by Patient) Problems Active Problems Problem Classification Problem Date Documented Da te Episodic/Chronic Cardiac dysrhythmias (16 sources) Atrial fibrillation; Translations: [Sinus node dysfunction] Onset: 09-22-2023 04-26-2024 Chronic Cardiac dysrhythmias (2 sources) Palpitations; Translations: [Palpitations] 06-01-2024 Episodic Complication of device; implant or graft (7 sources) Disorder of implanted cardiac defibrillator electrode; Translations: [Breakdown (mechanical) of cardiac electrode, initial encounter] Onset: 11-07-2024 06-01-2024 Episodic Conduction disorders (20 sources) Cardiac pacemaker in situ; Translations: [Presence of cardiac pacemaker] Onset: 08-17-2006 08-17-2006 Chronic Congestive heart failure; nonhypertensive (4 sources) Chronic systolic heart failure; Translations: [Chronic systolic (congestive) heart failure] Onset: 11-07-2024 07-26-2024 Chronic Essential hypertension (20 sources) Benign essential hypertension; Translations: [Essential (primary) hypertension] Onset: 06-05-2005 06-05-2005 Chronic Hyperplasia of prostate (8 sources) Benign prostatic hyperplasia; Translations: [Benign prostatic hyperplasia without lower urinary tract symptoms] Onset: 03-19-2022 03-19-2022 Chronic Hypertension with complications and secondary hypertension (2 sources) Hypertensive heart disease with heart failure; Translations: [Hypertensive heart disease with heart failure] Onset: 06-06-2024 Chronic Immunizations and screening for infectious disease (4 sources) Contact with and (suspected) exposure to other viral communicable diseases; Translations: [CONTCT EXPS OTH VIRL COMMUNICABL DZ] Onset: 05-24-2020 Episodic Nonspecific chest pain (2 sources) Chest pain; Translations: [Chest pain, unspecified] Onset: 04-15-2022 Episodic Other nutritional; endocrine; and metabolic disorders (1 source) Obesity, unspecified; Translations: [Obesity, unspecified] Onset: 09-22-2023 Chronic Other nutritional; endocrine; and metabolic disorders (1 source) Body mass index (BMI) 33.0-33.9, adult; Translations: [Body mass index (BMI) 33.0-33.9, adult] Onset: 09-22-2023 Chronic Other nutritional; endocrine; and metabolic disorders (20 sources) Obese class II; Translations: [Obesity, Class II, BMI 35-39.9] Onset: 10-07-2020 10-07-2020 Chronic Other nutritional; endocrine; and metabolic disorders (20 sources) Obese class I; Translations: [Obesity, Class I, BMI 30-34.9] Onset: 12-16-2020 12-16-2020 Chronic Other nutritional; endocrine; and metabolic disorders (9 sources) Obesity; Translations: [Obesity, unspecified] Onset: 08-21-2016 08-21-2016 Chronic Other upper respiratory disease (8 sources) Allergic rhinitis; Translations: [Allergic rhinitis, unspecified] Onset: 08-21-2016 08-21-2016 Chronic Other upper respiratory infections (8 sources) Recurrent sinusitis; Translations: [Chronic sinusitis, unspecified] Onset: 08-08-2019 08-08-2019 Chronic Mara-; endo-; and myocarditis; cardiomyopathy (except that caused by tuberculosis or sexually transmitted disease) (4 sources) Cardiomyopathy; Translations: [Cardiomyopathy, unspecified] Onset: 05-26-2020 09-22-2023 Chronic Residual codes; unclassified (1 source) Obstructive sleep apnea (adult) (pediatric); Translations: [Obstructive sleep apnea (adult) (pediatric)] Onset: 09-22-2023 Chronic Residual codes; unclassified (1 source) Sleep apnea Onset: 09-22-2023 Chronic Residual codes; unclassified (9 sources) Obstructive sleep apnea syndrome; Translations: [Obstructive sleep apnea (adult) (pediatric)] Onset: 08-21-2016 08-08-2019 Chronic Syncope (20 sources) Vasovagal syncope; Translations: [Syncope and collapse] Onset: 05-14-2005 Resolved: 04-14-2016 10-07-2020 Episodic Unclassified (2 sources) Full examination performed; Translations: [Other specified general medical examination] Onset: 06-05-2005 06-05-2005 Unclassified (1 source) New Patient Onset: 09-22-2023 Past or Other Problems Problem Classification Problem Date Documented Da te Episodic/Chronic Administrative/social admission (2 sources) Other specified counseling; Translations: [Patient encounter status] Onset: 09-22-2023 09-22-2023 Episodic Contraceptive and procreative management (8 sources) Patient encounter status; Translations: [Encounter for other general counseling and advice on contraception] Onset: 03-19-2022 04-06-2022 Episodic Genitourinary symptoms and ill-defined conditions (8 sources) Disorder of the urinary system; Translations: [Disorder of urinary system, unspecified] Onset: 03-19-2022 05-21-2022 Episodic Other circulatory disease (20 sources) Orthostatic hypotension; Translations: [Orthostatic hypotension] Onset: 06-05-2005 06-05-2005 Episodic Other diseases of veins and lymphatics (8 sources) Varicocele; Translations: [Scrotal varices] Onset: 03-19-2022 03-19-2022 Episodic Other injuries and conditions due to external causes (8 sources) H/O: fracture; Translations: [Personal history of (healed) traumatic fracture] Onset: 08-08-2019 08-08-2019 Episodic Residual codes; unclassified (8 sources) Family history of prostate cancer; Translations: [Family history of malignant neoplasm of prostate] Onset: 03-19-2022 03-19-2022 Episodic Unclassified (2 sources) Patient encounter status 11-07-2024 Results Test Name Value Interpretation Reference Range Facility Orders Onlyon 03-15-2025 Orders Only [id number] Eleazar Harrison I 1980 M Date Provider Department Center 03/15/2025 VIRGILIO CHAVEZ [facility] CARD [facility] Family History Problem Relation Age of Onset Coronary artery disease Mother Hypertension Mother Malig Hypertension Father Hypertension Maternal Grandmother Coronary artery disease Maternal Grandfather Hypertension Maternal Grandfather Cancer Paternal Grandmother Hypertension Paternal Grandmother Coronary artery disease Paternal Grandfather Hypertension Paternal Grandfather Stroke Paternal Grandfather Family Status - Relation Status Age at Mother Father Alive Sister Alive Brother Alive Maternal Grandmother Maternal Grandfather Paternal Grandmother Paternal Grandfather Normal [facility] Orders Onlyon 12-15-2024 Orders Only [id number] Eleazar Harrison I 1980 M Date Provider Department Center 12/15/2024 VIRGILIO CHAVEZ [facility] CARD [facility] Family History Problem Relation Age of Onset Coronary artery disease Mother Hypertension Mother Malig Hypertension Father Hypertension Maternal Grandmother Coronary artery disease Maternal Grandfather Hypertension Maternal Grandfather Cancer Paternal Grandmother Hypertension Paternal Grandmother Coronary artery disease Paternal Grandfather Hypertension Paternal Grandfather Stroke Paternal Grandfather Family Status - Relation Status Age at Mother Father Alive Sister Alive Brother Alive Maternal Grandmother Maternal Grandfather Paternal Grandmother Paternal Grandfather Normal [facility] ECG COMPLETEon 11-24-2024 Atrial Rate 119 BPM [facility] Calculated P Crosby 109 degrees [facility] Calculated R Crosby -77 degrees [facility] Calculated T Crosby 84 degrees [facility] P-R Interval 48 ms [facility] QRS Duration 194 ms [facility] QT Interval 410 ms [facility] QTC Calculation (Bazett) 576 ms [facility] Ventricular Rate 119 BPM [facility] VENTRICULAR PACEMAKE R RHYTHM ABNORMAL ECG Reconfirmed by MD DEL VALLE TAMANNA ([id number]) on 11/24/2024 12:23:50 [facility] NAME : ELEAZAR HARRISON PID : [id number] : 1980 Gender : Male Race : ORD : [id number] Procedure Date : Nov 07 2024 10:48:39 Edit Date : Nov 24 2024 12:23:52 Diagnosis: VENTRICULAR PACEMAKER RHYTHM ABNORMAL ECG Reconfirmed by MD DEL VALLE TAMANNA ([id number]) on 11/24/2024 12:23:50 PM Test Reason : Location : 314 : J14 J1-4 Overread By : MD DEL VALLE TAMANNA Edited By : MD DEL VALLE TAMANNA Referred By : CLINT HILTON Acquired by : OD[facility]ON [facility] [place] 11-23-2024 CNPN Telephone (CARDMN) ELEAZAR HARRISON I ([id number]) 1980 M Date Time Provider Department 11/23/24 CL[place]IL[place] During your visit today, we recorded the following information about you: Nyasia Newsome TECHNOLOGIST 11/23/2024 9:59 AM Signed Post Implant follow up call: Date: 11/23/2024 Name: Eleazar Harrison Is your incision: Red: No Open: No Swollen: No Draining: No Steri Strips: fell off If the device is an ICD, have you received any shocks: N/A Have you received your temporary or permanent ID card: No Do you have your f/u appointment: Yes Appointments for Next 60 Days Date Time Provider Location Dept Phone 12/22/2024 1:30 PM DEVICE CL[facility]IC Main - [facility] [phone] Any scheduling issues:Yes, Patient stated that he was going to follow up locally with senior mechanical estimator. He will call to cancel appointment with [facility]. Questions moving forward: No TECHNOLOGIST Isabel Allergies As of Date: 11/23/2024 (No Known Allergies) Date Reviewed: 11/11/2024 Reviewed by: Brooke Styles, KINSEY - Fully Assessed Reason for Visit: Courtesy call [Other] Cmt: Device survey Prescriptions as of 11/23/2024 - busPIRone (BUSPAR) 15 mg tablet Take 1 tablet by mouth twice daily. - sertraline (ZOLOFT) 100 mg tablet Take 100 mg by mouth once daily. - lisinopril (ZESTRIL, PRINIVIL) 5 mg tablet Take 5 mg by mouth once daily. - doxepin capsule 50 mg Take 50 mg by mouth daily at bedtime. - cetirizine (ZYRTEC) 10 mg tablet Take 10 mg by mouth once daily. - ADVIL 200 MG ORAL CAP as necessary Problem List As Of Date 11/23/2024 Noted Resolved Syncope and collapse [R55] 05/14/2005 04/14/2016 GENERAL MEDICAL EXAM NEC [Z00.8] 06/05/2005 ORTHOSTATIC HYPOTENSION [I95.1] 06/05/2005 BENIGN HYPERTENSION [I10] 06/05/2005 Pacemaker [Z95.0] 08/17/2006 Neurocardiogenic syncope [R55] Obesity, Class II, BMI 35-39.9 [E66.812] 10/07/2020 Obesity, Class I, BMI 30-34.9 [E66.811] 12/16/2020 Encounter Status:Closed by NYASIA NEWSOME on 11/23/24 [facility] 36on 11-22-2024 36 Spoke with pt. Spoke with Evoke. This should be taken care of. Normal [facility] Office Visiton 11-21-2024 Follow-up visit [id number] Eleazar Harrison I 1980 M Date Provider Department Center 11/21/2024 241-VIRGILIO SANTOS JOSÉ [facility] Family History Problem Relation Age of Onset Coronary artery disease Mother Hypertension Mother Malig Hypertension Father Hypertension Maternal Grandmother Coronary artery disease Maternal Grandfather Hypertension Maternal Grandfather Cancer Paternal Grandmother Hypertension Paternal Grandmother Coronary artery disease Paternal Grandfather Hypertension Paternal Grandfather Stroke Paternal Grandfather Family Status - Relation Status Age at Mother Father Alive Sister Alive Brother Alive Maternal Grandmother Maternal Grandfather Paternal Grandmother Paternal Grandfather Level of Service:[id number] ND OFFICE/OUTPATIENT ESTABLISHED LOW MDM 20 MIN [facility] Orders Onlyon 11-21-2024 Orders Only [id number] Eleazar Harrison I 1980 M Date Provider Department Center 11/21/2024 Eric-SUHAS ALEJANDRO JOSÉ [place] Family History Problem Relation Age of Onset Coronary artery disease Mother Hypertension Mother Malig Hypertension Father Hypertension Maternal Grandmother Coronary artery disease Maternal Grandfather Hypertension Maternal Grandfather Cancer Paternal Grandmother Hypertension Paternal Grandmother Coronary artery disease Paternal Grandfather Hypertension Paternal Grandfather Stroke Paternal Grandfather Family Status - Relation Status Age at Mother Father Alive Sister Alive Brother Alive Maternal Grandmother Maternal Grandfather Paternal Grandmother Paternal Grandfather Normal [facility] ECG COMPLETEon 11-11-2024 ECG COMPLETE Ventricular Rate : 6 2 BPM Atrial Rate : 62 BPM P-R Interval : 140 ms QRS Duration : 150 ms Q-T Interval : 536 ms QTC Calculation(Bazett) : 544 ms Calculated P Crosby : 29 degrees Calculated R Crosby : -41 degrees Calculated T Crosby : -88 degrees ATRIAL-SENSED VENTRICULAR-PACED RHYTHM BIVENTRICULAR PACEMAKER DETECTED ABNORMAL ECG Confirmed by ELIZABETH MONROY MD ([id number]) on 11/28/2024 6:15:11 AM NAME : ELEAZAR HARRISON PID : [id number] : 1980 Gender : Male Race : ORD : [id number] Procedure Date : Nov 11 2024 08:25:37 Edit Date : Nov 28 2024 06:15:13 Diagnosis: ATRIAL-SENSED VENTRICULAR-PACED RHYTHM BIVENTRICULAR PACEMAKER DETECTED ABNORMAL ECG Confirmed by ELIZABETH MONROY MD ([id number]) on 11/28/2024 6:15:11 AM Test Reason : Post-OP Location : 382 : 82 [id number] Overread By : ELIZABETH MONROY MD Edited By : ELIZABETH MONROY MD Referred By : , Acquired by : DAY P[facility] XR CHEST 2V FRONTAL/LATon XR CHEST 2V FRONTAL/LAT * * *Final Report* * * DATE OF EXAM: Nov 11 2024 10:32AM JIX [id number] - XR CHEST 2V FRONTAL/LAT / PROCEDURE REASON: Post-operative / post-procedure assessment, asymptomatic * * * * Physician Interpretation * * * * EXAMINATION: CHEST RADIOGRAPH (2 VIEW FRONTAL and LATERAL) CLINICAL HISTORY: Post-operative / post-procedure assessment, asymptomatic MQ: [id number]_6 EXAM DATE/TIME: 11/11/2024 10:32 AM COMPARISON: 11/07/2024 RESULT: Lines, tubes, and devices: Left anterior chest wall cardiac conduction device, transvenous leads tips overlie the RA, RV, and chronic sinus branches along the LV wall. Lungs and pleura: No consolidation or edema. No effusion or pneumothorax Cardiomediastinal silhouette: Stable cardiomediastinal silhouette. Bones and soft tissues: Stable IMPRESSION: See result Infrastructure Analyst: LILIA Transcribe Date/Time: Nov 11 2024 10:46A Dictated by : MILTON DAI MD This examination was interpreted and the report reviewed and electronically signed by: MILTON DAI MD on Nov 11 2024 10:47AM EST [id number] [facility] ANES POSTPROC EVALon 025 ANES POSTPROC EVAL HNO ID: [id number] Author: JAM HERNANDEZ MD Service: ? Author Type: Anesthesiologist Type: Anesthesia Postprocedure Evaluation Filed: 11/11/2024 06:32 Note Text: POST ANESTHESIA EVALUATION NOTE : 1980 Procedure Summary Date: 11/10/24 Room / Location: [place] [address] / [facility] CT AND VAS Anesthesia Start: 150 Anesthesia Stop: 2148 Procedures: REMOVAL PACEMAKER PERMANENT REMOVAL PACEMAKER ELECTRODE DUAL LEAD SYSTEM REPLACEMENT OF PERMANENT PACEMAKER W/ INSERTION OF NEW TRANSVENOUS ELECTRODE(S) ATRIAL AND VETRICULAR INSERTION CORONARY SINUS/LT VENTRICULAR LEAD W/INITIAL INSERTION OF PACEMAKER/DEFIB GENERATOR Diagnosis: Syncope and collapse Chronic systolic CHF (congestive heart failure) (HCC) AV block PVC (premature ventricular contraction) (Syncope and collapse [R55]) (Chronic systolic CHF (congestive heart failure) (HCC) [I50.22]) (AV block [I44.30]) (PVC (premature ventricular contraction) [I49.3]) Surgeons: Clint Hilton MD Responsible Provider: Jam Hernandez MD Anesthesia Type: general ASA Status: 3 Anesthesia Type: general Airway Type: ETT Last Vitals Vitals Value BP 122/68 Temp 36. Pulse 62 Resp 18 SpO2 98 % Vitals shown include unfiled device data. Post Anesthesia Patient Status Patient Evaluation: PACU. PACU/ICU Patient Condition: stable. Neurological Status: aware and responsive. Pulmonary Status: breathing comfortably on supplemental oxygen Airway Control: returned to baseline unsupported. Cardiovascular Status: stable. Pain Management: clinically adequate Postoperative Hydration: acceptable. Intraoperative Events: no significant anesthesia events Post Operative Nausea/Vomiting Status: no significant post operative nausea or vomiting Recommendation: continue current plan of care and further care per PACU/ICU/floor team. Anesthesia Observations No Documentation SIGNATURE: Jam Hernandez MD PATIENT NAME: Eleazar Harrison DATE: November 10, 2024 TIME: 10:00 PM CSN: [id number] [facility] ANES PRE-OPon 11-10-2024 ANES PRE-OP HNO ID: [id number] Author: MEE MALONE MD Service: ? Author Type: Anesthesiologist Type: Anesthesia Preprocedure Evaluation Filed: 11/10/2024 15:12 Note Text: ANESTHESIOLOGY DAY OF SURGERY NOTE : 1980 Procedure Information Anesthesia Start Date/Time: 11/10/24 1502 Procedures: REMOVAL PACEMAKER PERMANENT REMOVAL PACEMAKER ELECTRODE DUAL LEAD SYSTEM REPLACEMENT OF PERMANENT PACEMAKER W/ INSERTION OF NEW TRANSVENOUS ELECTRODE(S) ATRIAL AND VETRICULAR INSERTION CORONARY SINUS/LT VENTRICULAR LEAD W/INITIAL INSERTION OF PACEMAKER/DEFIB GENERATOR Location: [facility] / [facility] Surgeons: Clint Hilton MD Estimated body mass index is 33.61 kg/m? as calculated from the following: Height as of 11/07/24: 180.3 cm (5' 11 ). Weight as of 11/07/24: 109.3 kg (241 lb). Most recent hematocrit and potassium results: Hematocrit 43.0 11/07/2024 Potassium 4.2 11/07/2024 Relevant Problems CARDIO (+) Essential hypertension, benign (+) Pacemaker I - PHYSICAL EVALUATION AIRWAY Patient intubated: No. Tracheostomy tube not present Mallampati: I. TM distance: >3 FB. Neck ROM: full ROM without neurological symptoms. Mouth opening: adequate. Short neck: yes. Thick neck: yes Robert present: yes Additional exam findings: yes. CARDIOVASCULAR Rhythm: regular Rate: normal PULMONARY Breath sounds clear to auscultation. ABDOMINAL Obese: obesity present. II - ANESTHESIA PLAN ASA Score: 3 Anesthetic Plan: general Airway type: ETT NPO Status: adequate Beta Idris Monitoring Plan Monitoring plan: standard ASA and invasive hemodynamic monitoring. Monitoring method: arterial Line and GILBERT GILBERT details: patient denies history of stricture or varices Post Procedure Analgesic Plan Postoperative analgesic plan: parenteral or oral opioids. Informed Consent Anesthetic risks, benefits, alternatives, personnel and consent discussed: yes. Patient / Responsible Libertarian agrees to proceed: yes Patient / Surrogate agrees to blood products: Yes Potential Anesthesia issues that may suggest increased risk of complications or contraindication to planned procedure: none. Vitals Value Taken Time BP 135/84 11/10/24 0952 Pulse 110 11/10/24 1456 Resp 14 11/10/24 0952 Temp 36.6 ?C (97.9 ?F) 11/10/24 0952 SpO2 97 % 11/10/24 1456 Vitals shown include unfiled device data. No current facility-administered medications on file as of 11/10/2024. Outpatient Medications as of 11/10/2024 Medication Sig busPIRone (BUSPAR) 15 mg tablet Take 1 tablet by mouth twice daily. sertraline (ZOLOFT) 100 mg tablet Take 100 mg by mouth once daily. doxepin capsule 50 mg Take 50 mg by mouth daily at bedtime. cetirizine (ZYRTEC) 10 mg tablet Take 10 mg by mouth once daily. ADVIL 200 MG ORAL CAP as necessary lisinopril (ZESTRIL, PRINIVIL) 5 mg tablet Take 5 mg by mouth once daily. I have interviewed and examined the patient. I have reviewed the medical record and/or the pre-anesthesia evaluation, pertinent labs, and test results. This contains updated information obtained within 48 hours of Surgery/Procedure. SIGNATURE: Mee Malone MD PATIENT NAME: Eleazar Harrisno DATE: November 10, 2024 TIME: 3:11 PM CSN: [id number] [facility] ARTERIAL BLOOD GASES WITH IO NIZED MAGNESIUMon 11-10-2024 Base deficit (BldA) [Moles/Vol] -1 mmol/L Normal -2-0 [facility] Comment on above: Order Comment: Speci men Type: ARTERIAL BLOOD SPECIMENOrdering Facility: [facility] Address: [address] [place] [address] Performed By: #### A LLMG ####[facility] LABIA [id number] [place] [address] [place] Calcium.ionized (Bld) [Mass/Vol] 1.20 mmol/L Normal 1.08-1.30 [facility] Comment on above: Order Comment: Speci men Type: ARTERIAL BLOOD SPECIMENOrdering Facility: [facility] Address: [address] [place] [address] Performed By: #### A LLMG ####[facility] LABCLIA [id number] [place] [address] [place] Calcium.ionized adjusted to pH 7.4 (BldA) [Moles/Vol] 1.20 mmol/L Normal 1.08-1.30 [facility] Comment on above: Order Comment: Speci men Type: ARTERIAL BLOOD SPECIMENOrdering Facility: [facility] Address: [address] [place] [address] Performed By: #### A LLMG ####[facility] LABCLIA [id number] [place] [address] [place] Carboxyhemoglobin (BldA) [Mass fraction] 1.2 % Normal 0.0-2.0 [facility] Comment on above: Order Comment: Speci men Type: ARTERIAL BLOOD SPECIMENOrdering Facility: [facility] Address: [address] [place] [address] Result Comment: Carb oxyhemoglobin Reference Range for Smokers: 2.0-8.0% Performed By: #### A LLMG ####[facility] LABCLIA [id number] [place] [address] [place] CO2 (Bld) [Partial pressure] 38 mm Hg Normal 36-46 [facility] Comment on above: Order Comment: Speci men Type: ARTERIAL BLOOD SPECIMENOrdering Facility: [facility] Address: [address] [place] [address] Performed By: #### A LLMG ####[facility] LABCLIA [id number] [place] [address] [place] CO2 adjusted to patient's actual temperature (Bld) [Partial pressure] 38 mmHg Normal 36-46 [facility] Comment on above: Order Comment: Speci men Type: ARTERIAL BLOOD SPECIMENOrdering Facility: [facility] Address: [address] [place] [address] Performed By: #### A LLMG ####[facility] LABCLIA [id number] [place] [address] [place] Glucose [Mass/Vol] 90 mg/dL Normal 60-105 [facility] Comment on above: Order Comment: Speci men Type: ARTERIAL BLOOD SPECIMENOrdering Facility: [facility] Address: [address] [place] [address] Performed By: #### A LLMG ####[facility] LABCLIA [id number] [place] [address] [place] HCO3 (Bld) [Moles/Vol] 23 mmol/L Normal 22-26 [facility] Comment on above: Order Comment: Speci men Type: ARTERIAL BLOOD SPECIMENOrdering Facility: [facility] Address: [address] [place] [address] Performed By: #### A LLMG ####[facility] LABCLIA [id number] [place] [address] [place] Hematocrit (Bld) [Volume fraction] 41.3 % Normal 39.0-51.0 [facility] Comment on above: Order Comment: Speci men Type: ARTERIAL BLOOD SPECIMENOrdering Facility: [facility] Address: [address] [place] [address] Performed By: #### A LLMG ####[facility] LABCLIA [id number] [place] [address] [place] Hemoglobin (Bld) [Mass/Vol] 13.4 g/dL Normal 13.0-17.0 [facility] Comment on above: Order Comment: Speci men Type: ARTERIAL BLOOD SPECIMENOrdering Facility: [facility] Address: [address] [place] [address] Performed By: #### A LLMG ####[facility] LABCLIA [id number] [place] [address] [place] Lactate [Moles/Vol] 1.8 mmol/L Normal 0.5-2.2 [facility] Comment on above: Order Comment: Speci men Type: ARTERIAL BLOOD SPECIMENOrdering Facility: [facility] Address: [address] [place] [address] Performed By: #### A LLMG ####[facility] LABCLIA [id number] [place] [id number] [place] Magnesium [Moles/Vol] 0.47 mmol/L Normal 0.45-0.60 [facility] Comment on above: Order Comment: Speci men Type: ARTERIAL BLOOD SPECIMENOrdering Facility: [facility] Address: [address] [place] [address] Performed By: #### A LLMG ####[facility] LABIA [id number] [place] [address] [place] Methemoglobin (Bld) [Mass fraction] 0.8 % Normal 0.0-1.5 [facility] Comment on above: Order Comment: Speci men Type: ARTERIAL BLOOD SPECIMENOrdering Facility: [facility] Address: [address] [place] [address] Performed By: #### A LLMG ####[facility] LABCLIA [id number] [place] [address] [place] Oxygen (Bld) [Partial pressure] 231 mm Hg High 85-95 [facility] Comment on above: Order Comment: Speci men Type: ARTERIAL BLOOD SPECIMENOrdering Facility: [facility] Address: [address] [place] [address] Performed By: #### A LLMG ####[facility] LABIA [id number] [place] [address] [place] Oxygen adjusted to patient's actual temperature (Bld) [Partial pressure] 231 mmHg High 85-95 [facility] Comment on above: Order Comment: Speci men Type: ARTERIAL BLOOD SPECIMENOrdering Facility: [facility] Address: [address] [place] [address] Performed By: #### A LLMG ####[facility] LABCLIA [id number] [place] [id number] [place] Oxyhemoglobin (BldA) [Mass fraction] 98 % Normal 95-98 [facility] Comment on above: Order Comment: Speci men Type: ARTERIAL BLOOD SPECIMENOrdering Facility: [facility] Address: [address] [place] [address] Performed By: #### A LLMG ####[facility] LABCLIA [id number] [place] [address] [place] pH (Bld) 7.40 [pH] Normal 7.35-7.45 [facility] Comment on above: Order Comment: Speci men Type: ARTERIAL BLOOD SPECIMENOrdering Facility: [facility] Address: [address] [place] [address] Performed By: #### A LLMG ####[facility] LABCLIA [id number] [place] [address] [place] pH adjusted to patient's actual temperature (Bld) 7.40 Normal 7.35-7.45 [facility] Comment on above: Order Comment: Speci men Type: ARTERIAL BLOOD SPECIMENOrdering Facility: [facility] Address: [address] [place] [address] Performed By: #### A LLMG ####[facility] LABCLIA [id number] [place] [address] [place] Potassium [Moles/Vol] 4.4 mmol/L Normal 3.5-5.0 [facility] Comment on above: Order Comment: Speci men Type: ARTERIAL BLOOD SPECIMENOrdering Facility: [facility] Address: [address] [place] [address] Performed By: #### A LLMG ####[facility] LABCLIA [id number] [place] [id number] [place] Sodium [Moles/Vol] 137 mmol/L Normal 136-144 [facility] Comment on above: Order Comment: Speci men Type: ARTERIAL BLOOD SPECIMENOrdering Facility: [facility] Address: [address] [place] [address] Performed By: #### A LLMG ####[facility] LABCLIA [id number] [address] [place] OF [facility] BRIEF OP NOTon 11-10-2024 BRIEF OP NOT HNO ID: [id number] Author: CHELSEY JIMENEZ MD Service: Electrophysiology Author Type: Fellow Type: Brief Op Note Filed: 11/10/2024 21:24 Note Text: [facility] ELECTROPHYSIOLOGY BRIEF PROCEDURE NOTE Eleazar Harrison [id number] 43yo M with neurocardiogenic syncope, high degree AV block s/p dc PPM (2005) with pacing induced CM with HFmrEF, noted to have RV lead malfunction, here for extraction of RV lead and upgrade to MANAGER [place]-P. [employer] 2006 RA (5060) and RV (5053) EP Staff: Clint Hilton MD Procedure: extraction of RV lead; upgrade to MANAGER [place]-P/LOT-MANAGER [place] Date: November 10, 2024 Outcome: Successful Pre-op diagnosis: malfunctioning RV lead Post-op diagnosis: Same Access: - left axillary vein x 2 - left pre-pectoral device pocket - RFV x2; LFV x2 closed with vascades Specimens: Prior generator Complications: None Plan: - 6 hours bedrest. - Plan for observation overnight with discharge tomorrow. - Post-procedure chest radiograph and device check ordered. - Avoid heparin and enoxaparin for the next 48-72 hours due to risk of pocket hematoma. - No changes to outpatient medications upon discharge. - Wound care and activity restriction instructions will be in discharge paperwork. Full report will follow in [facility]. [Chart > Cardiac] For Questions/Orders 5PM - 8AM or Weekends (AFTER HOURS) please page: On-call Sanitary Engineering Teacher: [id number] [facility] [id number] 11-10-2024 ECG01 Ventricular Rate : 9 4 BPM Atrial Rate : 94 BPM P-R Interval : 140 ms QRS Duration : 146 ms Q-T Interval : 490 ms QTC Calculation(Bazett) : 612 ms Calculated P Crosby : 59 degrees Calculated R Crosby : -50 degrees Calculated T Crosby : -87 degrees ATRIAL-SENSED VENTRICULAR-PACED RHYTHM BIVENTRICULAR PACEMAKER DETECTED ABNORMAL ECG Confirmed by ELIANA MCCARTY, ELIZABETH ([id number]) on 11/28/2024 6:15:04 AM NAME : ELEAZAR HARRISON PID : [id number] : 1980 Gender : Male Race : ORD : Procedure Date : Nov 10 2024 21:46:30 Edit Date : Nov 28 2024 06:15:08 Diagnosis: ATRIAL-SENSED VENTRICULAR-PACED RHYTHM BIVENTRICULAR PACEMAKER DETECTED ABNORMAL ECG Confirmed by ELIZABETH MONROY MD ([id number]) on 11/28/2024 6:15:04 AM Test Reason : Location : 340 : [id number] Overread By : ELIZABETH MONROY MD Edited By : ELIZABETH MONROY MD Referred By : , Acquired by : [email or web address], [facility] INTRAOPERATIVE ECHO PREon INTRAOPERATIVE ECHO PRE Echocardiography Report: Intraoperative Echo Pre (GILBERT) [facility] [place] [facility] - J4 Date of service: 11/10/2024 3:39:50 PM CLINICAL DOCUMENTATION SPECIALIST Indication: lead extraction Technologist: fellow Fellow: Abe Nunez MD and Fred Hanley DO Interpreting physician: Mee Malone MD PATIENT: Name: MR. ELEAZAR HARRISON : 1980 Age: 43 years Gender: M Height: 180.00 cm BSA: 2.33 m Weight: 109.00 kg BMI: 33.6 kg/m (PRE PROCEDURE) Color Doppler was utilized to interrogate the cardiac valves assessed and spectral Doppler was utilized to determine the flow velocities and pressure gradients reported in this exam. Easy GILBERT probe placement. GILBERT complication: no complications. The interpreting physician was present for and actively participated in the GILBERT procedure. MEASUREMENTS: (PRE PROCEDURE) Value Indexed Normal LV stroke volume 50 ml (3D) LV end diastolic volume 138 ml (3D) 59.1 ml/m EDVi<=79 LV end systolic volume 88 ml (3D) 37.7 ml/m Ejection Fraction 36 % (3D) EF > 52 FINDINGS: (PRE PROCEDURE) LEFT VENTRICLE The left ventricle is normal in size. Left ventricular systolic function is moderately decreased. 3D data was obtained and analyzed to provide quantitative left ventricle measurements and assist with ventricular assessment. RIGHT VENTRICLE The right ventricle is moderately dilated. Right ventricular systolic function is low normal. LEFT ATRIUM Pulmonary Veins: The pulmonary venous pattern showed normal systolic flow. MITRAL VALVE [place] mitral valve. There is trace (trace - 1+) mitral valve regurgitation. TRICUSPID VALVE [place] tricuspid valve. There is trace (trace - 1+) tricuspid valve regurgitation. AORTIC VALVE There is no aortic valve stenosis. There is no aortic valve regurgitation. Tricuspid aortic valve. PULMONIC VALVE INTERATRIAL SEPTUM There is no patent foramen ovale as detected by Doppler. PERICARDIUM The pericardium is normal. CONCLUSIONS: (PRE PROCEDURE) - Exam indication: lead extraction - The left ventricle is normal in size. Left ventricular systolic function is moderately decreased. EF = 36 5% (3D) - The right ventricle is moderately dilated. Right ventricular systolic function is low normal. - There is no patent foramen ovale as detected by Doppler. - s/p lead extraction, no pericardiac effusion tricusid valve function remains preserved, trivial to 1+ TR, unchanged - Exam was compared with the prior CC echocardiographic exam performed 2020, there is further decline on the LV systolic function Final CC [employer] [facility] [facility] [place] [facility] : [id number] amicsSISUID See Link below for Image [facility] Pathology biopsy report Tunde (Tiss)on 11-10-2024 CASE REPORT [facility] Comment on above: Order Comment: Mira novoa Type: DEVICE SPECIMENOrdering Facility: [facility] Address: [address] [place] [address] Result Comment: Surg [facility] Pathology Report Case: [id number] Authorizing Provider: Clint Hilton MD Collected: 11/10/2024 04:50 PM Ordering Location: Admitting Received: 11/13/2024 07:42 AM Pathologist: Jonatan Mora MD, PhD Specimens: A) - Hardware/Device/Foreign Body, [employer] pacemaker B) - Hardware/Device/Foreign Body, old RV Lead Performed By: #### 6 6121-5 ####[facility] LABCLIA [id number] [place] [address] [place] CLINICAL HISTORY Normal [facility] Comment on above: Order Comment: Speci bright Type: DEVICE SPECIMENOrdering Facility: [facility] Address: [address] [place] [address] Result Comment: Pre- op diagnosis: Syncope and collapse [R55] Chronic systolic CHF (congestive heart failure) (HCC) [I50.22] AV block [I44.30] PVC (premature ventricular contraction) [I49.3] Performed By: #### 6 6121-5 ####[facility] LABCLIA [id number] [address] FINAL DIAGNOSIS [facility] Comment on above: Order Comment: Speci men Type: DEVICE SPECIMENOrdering Facility: [facility] Address: [address] [place] [address] Result Comment: A. I mplantable cardioverter defibrillator, removal: - Pulse generator (gross examination only). B. Right ventricular lead, extraction: - Pacing or defibrillator lead wire without attached soft tissue (gross examination only) MH/OLS at 1645 EDT Performed By: #### 6 6121-5 ####[facility] LABCLIA [id number] [address] FINAL PERFORMING LAB Normal [facility] Comment on above: Order Comment: Speci men Type: DEVICE SPECIMENOrdering Facility: [facility] Address: [address] [place] [address] Result Comment: Diag nostic interpretation performed at: [facility], [address] [place], [place] [id number] CLIA# [id number] Fruit Grader: Lul Gallegos MD Performed By: #### 6 6121-5 ####[facility] LABCLIA [id number] [address] OF [facility] GROSS DESCRIPTION Normal [facility] Comment on above: Order Comment: Speci men Type: DEVICE SPECIMENOrdering Facility: [facility] Address: [address] [place] [address] Result Comment: A. H ardware/Device/Foreign Body Received in formalin, labeled as pacemaker , is a silver-colored metallic device measuring 5.02 x 4.45 x 0.75 cm. The specimen has the following inscription: [employer] MRI L311 SN [id number] . The specimen is for gross examination only. No microscopic sections are submitted. A photograph is attached to the case. The specimen is reviewed with Dr. Mora. B. Hardware/Device/Foreign Body Received fresh labeled RV lead is a segment of lead wire measuring 50 cm in length and 0.2 cm in diameter. A screw tip is attached. No soft tissue is attached. No sections are submitted. The specimen is reviewed with Dr. Mora. Gross diagnosis only. Gross examination performed at [facility], [address] [place] [address] OLS November 13, 2024 8:51 AM Performed By: #### 6 6121-5 ####[facility] [id number] [address] [place] CBC panel Auto (Bld)on 11-07 Erythrocyte distribution width (RBC) [Ratio] 12.1 % Normal 11.5-15.0 [facility] Comment on above: Order Comment: Speci men Type: BLOOD SPECIMENOrdering Facility: [facility] Address: [address] [place] [address] Performed By: #### 5 8410-2 ####[facility] [id number] [place] [address] [place] Hematocrit (Bld) [Volume fraction] 43.0 % Normal 39.0-51.0 [facility] Comment on above: Order Comment: Speci men Type: BLOOD SPECIMENOrdering Facility: [facility] Address: [address] [place] [address] Performed By: #### 5 8410-2 ####[facility] LABIA [id number] [place] [address] [place] Hemoglobin (Bld) [Mass/Vol] 14.3 g/dL Normal 13.0-17.0 [facility] Comment on above: Order Comment: Speci men Type: BLOOD SPECIMENOrdering Facility: [facility] Address: [address] [place] [address] Performed By: #### 5 8410-2 ####[facility] LABIA [id number] [place] [address] [place] MCH (RBC) [Entitic mass] 29.3 pg Normal 26.0-34.0 [facility] Comment on above: Order Comment: Speci men Type: BLOOD SPECIMENOrdering Facility: [facility] Address: [address] [place] [address] Performed By: #### 5 8410-2 ####[facility] LABIA [id number] [place] [address] [place] MCHC (RBC) [Mass/Vol] 33.3 g/dL Normal 30.5-36.0 [facility] Comment on above: Order Comment: Speci men Type: BLOOD SPECIMENOrdering Facility: [facility] Address: [address] [place] [address] Performed By: #### 5 8410-2 ####[facility] LABIA [id number] [place] [address] [place] MCV (RBC) [Entitic vol] 88.1 fL Normal 80.0-100.0 [facility] Comment on above: Order Comment: Speci men Type: BLOOD SPECIMENOrdering Facility: [facility] Address: [address] [place] [address] Performed By: #### 5 8410-2 ####[facility] LABIA [id number] [place] [address] [place] Nucleated RBC (Bld) [#/Vol] 10*3/uL Normal <0.01 [facility] Comment on above: Order Comment: Speci men Type: BLOOD SPECIMENOrdering Facility: [facility] Address: [address] [place] [address] Performed By: #### 5 8410-2 ####[facility] LABCLIA [id number] [address] [place] [address] [place] Platelet mean volume (Bld) [Entitic vol] 10.1 fL Normal 9.0-12.7 [facility] Comment on above: Order Comment: Speci men Type: BLOOD SPECIMENOrdering Facility: [facility] Address: [address] [place] [address] Performed By: #### 5 8410-2 ####[facility] LABCLIA [id number] [address] [place] [address] [place] Platelets (Bld) [#/Vol] 297 10*3/uL Normal 150-400 [facility] Comment on above: Order Comment: Speci men Type: BLOOD SPECIMENOrdering Facility: [facility] Address: [address] [place] [address] Performed By: #### 5 8410-2 ####[facility] LABIA [id number] [address] [place] [address] [place] RBC (Bld) [#/Vol] 4.88 10*6/uL Normal 4.20-6.00 [facility] Comment on above: Order Comment: Speci men Type: BLOOD SPECIMENOrdering Facility: [facility] Address: [address] [place] [address] Performed By: #### 5 8410-2 ####[facility] LABCLIA [id number] [address] [place] [address] [place] WBC (Bld) [#/Vol] 6.84 10*3/uL Normal 3.70-11.00 [facility] Comment on above: Order Comment: Speci men Type: BLOOD SPECIMENOrdering Facility: [facility] Address: [address] [place] [address] Performed By: #### 5 8410-2 ####[facility] LABCLIA [id number] [address] [address] [facility] CNOVon 11-07-2024 CNOV Office Visit (CARTMN ) ELEAZAR HARRISON I ([id number]) 1980 M Date Time Provider Department 11/07/24 2:20 PM ANESTHESIA CLEARANCE CARTMN During your visit today, we recorded the following information about you: Radha Hammond MD 11/07/2024 3:37 PM Signed Cardiothoracic Anesthesiology Preoperative Assessment Service Date: 11/07/2024 Service Time: 2:55 PM Primary Care Physician: Joanna Yee CNP, NURSE COORDINATOR Subjective Patient Entered Data: 10/31/2024 Cardiothoracic Surgery Pre-Op Questionnaire Previous anesthesia problems No Family history anesthesia problems No Blood consent Yes Esophageal history None Implanted devices Yes Select implanted devices Pacemaker or Defibrillator History difficult airway No Airway surgery No Ongoing pain issues No Heparin intolerance No Daily alcohol use No Illicit drug use No Scheduled procedure: Lead removal/Replacement Scheduled date: 11/10/2024 HPI: Eleazar Harrison is a very pleasant male patient with past medical history significant for retention, IBS, neurocardiogenic syncope, high degree AV block status post dual-chamber permanent pacemaker in 2009, nonischemic cardiomyopathy with an ejection fraction most recently 45%. Complete heart block status post dual-chamber permanent pacemaker: He has evidence of RV lead malfunction with elevated capture thresholds and some pocket stimulation. He is here for pre-operative evaluation prior to replacement of that lead. Patient instructed to: - Follow surgical instruction regarding anticoagulation/ASA therapy - Follow additional instructions regarding all other medications as discussed and detailed on medication guideline information sheet given to patient at visit. Review no known heparin intolerance not taking anticoagulant/antipla telet medication no non-cardiac IEDs present no known esophageal disorders blood transfusion consented - COVID-19 Immunization Status Current Care Gaps Covid-19 Vaccine () Overdue since 03/12/2024 06/24/2021 Imm Admin: COVID-19 original vaccine, age 12+ yr, monovalent ([employer] - PURPLE TOP) 11/23/2020 Imm Admin: COVID-19 original vaccine, full dose, monovalent (MODERNA) 10/17/2020 Imm Admin: COVID-19 original vaccine, full dose, monovalent (MODERNA) Only the first 3 history entries have been loaded, but more history exists. The patient has the following: ACTIVE PROBLEM LIST Other Specified General Medical Examination Orthostatic Hypotension Essential Hypertension, Benign Pacemaker Neurocardiogenic Syncope Obesity, Class II, Bmi 35-39.9 Obesity, Class I, Bmi 30-34.9 PAST MEDICAL HISTORY Diagnosis Date Irritable bowel syndrome Irritable bowel Neurocardiogenic syncope Pacemaker 02/2006 dual chamber; generator change and his [employer] PPM gen was changed for a Collusion generator to give a more metabiolic sensor driven rate control 2020. Sleep apnea CPAP Unspecified essential hypertension PAST SURGICAL HISTORY Procedure Laterality Date APPENDECTOMY age 18 FAMILY HISTORY Problem Relation Age of Onset Hypertension Mother Asthma Mother Ischemic Heart Disease Mother Hypertension Father Pancreatitis Father Hypertension Maternal Grandmother Hypertension Maternal Grandfather Ischemic Heart Disease Maternal Grandfather Hypertension Paternal Grandmother other (malignant neoplastic disease) Paternal Grandmother Hypertension Paternal Grandfather Ischemic Heart Disease Paternal Grandfather Stroke Paternal Grandfather Liver Cancer Son 0 s/p liver transplant x 2 (diagnosed age 6 months) Social History Tobacco Use Smoking status: Former Current packs/day: 0.00 Average packs/day: 1 pack/day for 7.0 years (7.0 ttl pk-yrs) Types: Cigarettes Start date: 06/11/1999 Quit date: 06/11/2006 Years since quittin.4 Smokeless tobacco: Current Types: Chew Vaping Use Vaping status: Never Used Substance Use Topics Alcohol use: Not Currently Drug use: Not Currently Prior to Admission medications as of 11/07/24 1140 Medication Sig Last Dose Taking busPIRone (BUSPAR) 15 mg tablet Take 1 tablet by mouth twice daily. sertraline (ZOLOFT) 100 mg tablet Take 100 mg by mouth once daily. lisinopril (ZESTRIL, PRINIVIL) 5 mg tablet Take 5 mg by mouth once daily. doxepin capsule 50 mg Take 50 mg by mouth daily at bedtime. cetirizine (ZYRTEC) 10 mg tablet Take 10 mg by mouth once daily. ADVIL 200 MG ORAL CAP as necessary No medication comments found. ALLERGIES No Known Allergies Objective Pain Assessment: Vitals: There were no vitals taken for this visit. Diagnostic tests reviewed for today's visit: Lab Value Units Date High Low HB No results within date range. HCT No results within date range. WBC No results within date range. PLT No results within date range. NA No results wit (more content not included)... Normal [facility] CNOV Office Visit (CARDMN ) ELEAZAR HARRISON I ([id number]) 1980 M Date Time Provider Department 11/07/24 11:45 AM CLINT HILTON During your visit today, we recorded the following information about you: Pulse Blood pressure Weight Height 110/minute 116/80 109.3 kg 1.803 m Clint Hilton MD 11/07/2024 12:44 PM Signed [facility] [place] [facility] Department of Cardiovascular Medicine SECTION OF CARDIAC PACING and ELECTROPHYSIOLOGY OUTPATIENT VISIT DATE November 07, 2024 OUTPATIENT VISIT TYPE Established CHIEF COMPLAINT: pre op extraction IMPRESSION/PLAN: Eleazar Harrison is a very pleasant male patient with past medical history significant for retention, IBS, neurocardiogenic syncope, high degree AV block status post dual-chamber permanent pacemaker in 2009, nonischemic cardiomyopathy with an ejection fraction most recently 45%. Complete heart block status post dual-chamber permanent pacemaker: He has evidence of RV lead malfunction with elevated capture thresholds and some pocket stimulation. We will plan for replacement of that lead. We discussed options of abandoning versus extracting the malfunctioning lead. Given his young age, I favor extraction to avoid potential lead related complications in the future. We reviewed the risk, benefits and alternatives to lead extraction. Patient understands and agrees. Nonischemic cardiomyopathy: He has an ejection fraction most recently of 45% (outside echo from August 2023) in the setting of 99% RV pacing. As we will be exchanging his RV lead, I recommend upgrade to biventricular pacing with addition of a CS lead and possible addition of left bundle branch pacing. I reviewed with the patient the risk, benefits and alternatives to addition of these leads. He understands and agrees to proceed. Plan: Extraction of malfunctioning RV lead with upgrade to biventricular pacemaker +/- LOT-MANAGER [employer] HPI: He has a past history of HTN, IBS, neurocardiogenic syncope s/p dual chamber pacemaker insertion 02/2006 with generator change out 2011. He had developed prolonged ND interval and AV block and now is paced in the RV over 80% of the time despite prolonged AV intervals. He developed the need to RV pace in 2017 and developed fatigue and reduced LVEF (30-35%) per echo done at outside hospital in April 2020. The plan was to proceed with extraction of his current Biotronik sytem (all) and implanting MDT MANAGER CHINA-D. However, he had an echo which showed EF 55%, so procedure was cancelled. He then underwent a generator change and his [employer] PPM gen was changed for a Collusion generator to give a more metabiolic sensor driven rate control 2020. He was last seen virtually 07/26/24, has evidence of RV lead malfunction with increasing capture thresholds and some pocket stimulation, atrial lead appears to be working well, EF down to about 45% in the setting of chronic RV pacing. He is scheduled for upgrade of his device to biventricular pacemaker given NYHA class II-III symptoms, high percentage of RV pacing, and depressed ejection fraction He continues to have episodes of brief syncope daily, 6-7x per day, he takes his time changing positions, often hitting his face and head. He has not sustained any injuries with the falls from the syncopal events, but he usually is able to sit or lay down when he feels one coming on. He endorses fatigue, shortness of breath with exertion, and occasional lightheadedness.. He sometimes has irregular palpitations with exertion. He has sleep apnea and wears CPAP. REVIEW OF SYSTEMS Negative in detail except as outlined in the HPI. PHYSICIAL EXAM: BP 116/80 Pulse 110 Ht 180.3 cm (5' 11 ) Wt 109.3 kg (241 lb) BMI 33.61 kg/m? GEN: Awake, alert, no apparent distress HEAD: Normocephalic, atraumatic EYES: Anicteric sclera. Extraocular movements are intact. LUNGS: Non-labored breathing, normal chest wall movement HEART: Regular rhythm, normal rate ABDOMEN: Non-distended EXTREMITIES: No cyanosis clubbing or edema. MUSCULOSKELETAL: No gross deformities. SKIN: No rashes DATA: (The following studies were reviewed personally) EKG TODAY PAST MEDICAL HISTORY Diagnosis Date Irritable bowel syndrome Irritable bowel Neurocardiogenic syncope Pacemaker 02/2006 dual chamber; generator change and his [employer] PPM gen was changed for a [employer] generator to give a more metabiolic sensor driven rate control 2020. Sleep apnea CPAP Unspecified essential hypertension Current Outpatient Medications Medication Sig busPIRone (BUSPAR) 15 mg tablet Take 1 tablet by mouth twice daily. sertraline (ZOLOFT) 100 mg tablet Take 100 mg by mouth once daily. lisinopril (ZESTRIL, PRINIVIL) 5 mg tablet Take 5 mg by mouth once daily. doxepin capsule 50 mg Take 50 mg by mouth daily a (more content not included)... Normal [facility] CT CARDIAC W IVCONon 025 CT CARDIAC W IVCON * * *Final Report* * * DATE OF EXAM: Nov 07 2024 9:15AM [facility] 0127 - CT CARDIAC W IVCON / PROCEDURE REASON: Paroxysmal atrial fibrillation (HCC) * * * * Physician Interpretation * * * * CTA Aorta chest Direct Image Comparison: HISTORY: 43 years old Male with history of high degree AV block status post dual-chamber permanent pacemaker in 2009, nonischemic cardiomyopathy with an ejection fraction most recently 45% Evaluation for pacer lead extraction, There is request to define thoracic and cardiac anatomy, including location of pacer leads TECHNIQUE: SCANNER: Multi-detector scanner PROTOCOL: Prospectively triggered helical high-pitch acquisitions ( triggered Flash-mode ) was performed following the intravenous administration of contrast material. Scan Range: thoracic inlet to the diaphragm CT Dose-Length Product (DLP): 238 mGy*cm CT Dose Reduction Employed: Automated exposure control (AEC) CONTRAST: IV administration of 90 ml Omnipaque 350 Scan acquisition: uncomplicated Macro Version: [id number] For optimization of anatomic evaluation, advanced 3-D off-line postprocessing was performed on a dedicated workstation by the interpreting physician. STUDY LIMITATIONS: expected venous phase vascular enhancement. RESULT: LINES, TUBES and DEVICES: None PPM/ICD: PPM device over the left anterior chest wall, with transvenous leads extending to the RA and RV Device Pocket: assessment is limited due to metal artifact. No definitive evidence of fluid of gas accumulation. Lead Course: ZONE 1 (vein entry to confluence of left innominate and SVC): - enters left subclavian vein - peripheral location, against wall > 1 cm length. Assessment is limited due to metal artifact. ZONE 2 (SVC from confluence to RA): - peripheral location, against wall > 1 cm length. Assessment is limited due to metal artifact - No SVC stenosis ZONE 3 (RA to lead tip): - central location within RA/RV. Assessment is limited due to metal artifact Lead Tip Location: RA lead termination: lateral Right Atrial Appendage (RAA). Assessment is limited by metal streak artifact RV lead termination: RV apex.; Assessment is limited by metal streak artifact CHEST: Chest wall anatomy: unremarkable. LUNGS: unremarkable. MEDIASTINUM: unremarkable. PERICARDIUM: unremarkable CENTRAL PULMONARY ARTERY: normal dimensions. Assessment is limited due to limited contrast enhancement. CARDIAC CHAMBERS: LEFT VENTRICLE: normal size. RIGHT VENTRICLE: normal size Left Atrium: normal size. ALESSANDRA: normal Right Atrium: normal size CENTRAL VENOUS and PULMONARY VENOUS RETURN: normal. Coronary Sinus: normal size MITRAL VALVE: assessment is limited in the current study - no leaflet calcification. No annular calcification TRICUSPID and PULMONIC VALVE: appear unremarkable. CORONARY ANATOMY: normal origin of the coronary arteries. No definitive evidence of calcified atherosclerotic changes of the coronary arteries. AORTIC VALVE: appears trileaflet. No leaflet calcification. AORTA: Pathology: No acute aortic pathology. Intervention: None Complications: n/a Aortic Size: STJ: maintained. Wall Changes: no wall calcification. Arch Branch Vessels: Unremarkable proximal segments of the arch branch vessels. AORTIC DIMENSIONS: AORTIC ROOT: 3.5 cm measured [id number] mid ASCENDING THORACIC AORTA: 3.0 cm mid AORTIC ARCH: 2.6 cm distal DESCENDING THORACIC AORTA: 2.2 cm RELATIONSHIP OF THE CARDIOVASCULAR STRUCTURES OF THE STERNUM: All of the cardiovascular structures lie a safe distance limited upper ABDOMEN: unremarkable BONES and SOFT TISSUES: [employer]als (topogram) images: No additional findings. IMPRESSION: PPM/ICD device and lead course/position as described above. Infrastructure Analyst: LILIA Transcribe Date/Time: Nov 07 2024 12:15P Dictated by : YASSINE HUYNH MD This examination was interpreted and the report reviewed and electronically signed by: YASSINE HUYNH MD on Nov 07 2024 3:22PM EST [id number] Normal [facility] CT Heart W contrast Rob IMPRESSION: PPM/ICD device and lead course/position as described above. Infrastructure Analyst: LILIA Transcribe Date/Time: Nov 07 2024 12:15P Dictated by : YASSINE HUYNH MD This examination was interpreted and the report reviewed and electronically signed by: YASSINE HUYNH MD on Nov 07 2024 3:22PM EST DIVISION OF RADIOLOGY * * *Final Report* * * DATE OF EXAM: Nov 07 2024 9:15AM J 0127 - CT CARDIAC W IVCON / PROCEDURE REASON: Paroxysmal atrial fibrillation (HCC) * * * * Physician Interpretation * * * * CTA Aorta chest Direct Image Comparison: HISTORY: 43 years old Male with history of high degree AV block status post dual-chamber permanent pacemaker in 2009, nonischemic cardiomyopathy with an ejection fraction most recently 45% Evaluation for pacer lead extraction, There is request to define thoracic and cardiac anatomy, including location of pacer leads TECHNIQUE: SCANNER: Multi-detector scanner PROTOCOL: Prospectively triggered helical high-pitch acquisitions ( triggered Flash-mode ) was performed following the intravenous administration of contrast material. Scan Range: thoracic inlet to the diaphragm CT Dose-Length Product (DLP): 238 mGy*cm CT Dose Reduction Employed: Automated exposure control (AEC) CONTRAST: IV administration of 90 ml Omnipaque 350 Scan acquisition: uncomplicated Macro Version: [id number] For optimization of anatomic evaluation, advanced 3-D off-line postprocessing was performed on a dedicated workstation by the interpreting physician. STUDY LIMITATIONS: expected venous phase vascular enhancement. RESULT: LINES, TUBES and DEVICES: None PPM/ICD: PPM device over the left anterior chest wall, with transvenous leads extending to the RA and RV Device Pocket: assessment is limited due to metal artifact. No definitive evidence of fluid of gas accumulation. Lead Course: ZONE 1 (vein entry to confluence of left innominate and SVC): - enters left subclavian vein - peripheral location, against wall > 1 cm length. Assessment is limited due to metal artifact. ZONE 2 (SVC from confluence to RA): - peripheral location, against wall > 1 cm length. Assessment is limited due to metal artifact - No SVC stenosis ZONE 3 (RA to lead tip): - central location within RA/RV. Assessment is limited due to metal artifact Lead Tip Location: RA lead termination: lateral Right Atrial Appendage (RAA). Assessment is limited by metal streak artifact RV lead termination: RV apex.; Assessment is limited by metal streak artifact CHEST: Chest wall anatomy: unremarkable. LUNGS: unremarkable. MEDIASTINUM: unremarkable. PERICARDIUM: unremarkable CENTRAL PULMONARY ARTERY: normal dimensions. Assessment is limited due to limited contrast enhancement. CARDIAC CHAMBERS: LEFT VENTRICLE: normal size. RIGHT VENTRICLE: normal size Left Atrium: normal size. ALESSANDRA: normal Right Atrium: normal size CENTRAL VENOUS and PULMONARY VENOUS RETURN: normal. Coronary Sinus: normal size MITRAL VALVE: assessment is limited in the current study - no leaflet calcification. No annular calcification TRICUSPID and PULMONIC VALVE: appear unremarkable. CORONARY ANATOMY: normal origin of the coronary arteries. No definitive evidence of calcified atherosclerotic changes of the coronary arteries. AORTIC VALVE: appears trileaflet. No leaflet calcification. AORTA: Pathology: No acute aortic pathology. Intervention: None Complications: n/a Aortic Size: STJ: maintained. Wall Changes: no wall calcification. Arch Branch Vessels: Unremarkable proximal segments of the arch branch vessels. AORTIC DIMENSIONS: AORTIC ROOT: 3.5 cm measured [id number] mid ASCENDING THORACIC AORTA: 3.0 cm mid AORTIC ARCH: 2.6 cm distal DESCENDING THORACIC AORTA: 2.2 cm RELATIONSHIP OF THE CARDIOVASCULAR STRUCTURES OF THE STERNUM: All of the cardiovascular structures lie a safe distance limited upper ABDOMEN: unremarkable BONES and SOFT TISSUES: [employer]essionals (topogram) images: No additional findings. DIVISION OF RADIOLOGY Provider, [facility] - 11/07/2024 * * *Final Report* * * DATE OF EXAM: Nov 07 2024 9:15AM [facility] 0127 - CT CARDIAC W IVCON / PROCEDURE REASON: Paroxysmal atrial fibrillation (HCC) * * * * Physician Interpretation * * * * CTA Aorta chest Direct Image Comparison: HISTORY: 43 years old Male with history of high degree AV block status post dual-chamber permanent pacemaker in 2010, nonischemic cardiomyopathy with an ejection fraction most recently 45% Evaluation for pacer lead extraction, There is request to define thoracic and cardiac anatomy, including location of pacer leads TECHNIQUE: SCANNER: Multi-detector scanner PROTOCOL: Prospectively triggered helical high-pitch acquisitions ( triggered Flash-mode ) was performed following the intravenous administration of contrast material. Scan Range: thoracic inlet to the diaphragm CT Dose-Length Product (DLP): 238 mGy*cm CT Dose Reduction Employed: Automated exposure control (AEC) CONTRAST: IV administration of 90 ml Omnipaque 350 Scan acquisition: uncomplicated Macro Version: [id number] For optimization of anatomic evaluation, advanced 3-D off-line postprocessing was performed on a dedicated workstation by the interpreting physician. STUDY LIMITATIONS: expected venous phase vascular enhancement. RESULT: LINES, TUBES and DEVICES: None PPM/ICD: PPM device over the left anterior chest wall, with transvenous leads extending to the RA and RV Device Pocket: assessment is limited due to metal artifact. No definitive evidence of fluid of gas accumulation. Lead Course: ZONE 1 (vein entry to confluence of left innominate and SVC): - enters left subclavian vein - peripheral location, against wall > 1 cm length. Assessment is limited due to metal artifact. ZONE 2 (SVC from confluence to RA): - peripheral location, against wall > 1 cm length. Assessment is limited due to metal artifact - No SVC stenosis ZONE 3 (RA to lead tip): - central location within RA/RV. Assessment is limited due to metal artifact Lead Tip Location: RA lead termination: lateral Right Atrial Appendage (RAA). Assessment is limited by metal streak artifact RV lead termination: RV apex.; Assessment is limited by metal streak artifact CHEST: Chest wall anatomy: unremarkable. LUNGS: unremarkable. MEDIASTINUM: unremarkable. PERICARDIUM: unremarkable CENTRAL PULMONARY ARTERY: normal dimensions. Assessment is limited due to limited contrast enhancement. CARDIAC CHAMBERS: LEFT VENTRICLE: normal size. RIGHT VENTRICLE: normal size Left Atrium: normal size. ALESSANDRA: normal Right Atrium: normal size CENTRAL VENOUS and PULMONARY VENOUS RETURN: normal. Coronary Sinus: normal size MITRAL VALVE: assessment is limited in the current study - no leaflet calcification. No annular calcification TRICUSPID and PULMONIC VALVE: appear unremarkable. CORONARY ANATOMY: normal origin of the coronary arteries. No definitive evidence of calcified atherosclerotic changes of the coronary arteries. AORTIC VALVE: appears trileaflet. No leaflet calcification. AORTA: Pathology: No acute aortic pathology. Intervention: None Complications: n/a Aortic Size: STJ: maintained. Wall Changes: no wall calcification. Arch Branch Vessels: Unremarkable proximal segments of the arch branch vessels. AORTIC DIMENSIONS: AORTIC ROOT: 3.5 cm measured [id number] mid ASCENDING THORACIC AORTA: 3.0 cm mid AORTIC ARCH: 2.6 cm distal DESCENDING THORACIC AORTA: 2.2 cm RELATIONSHIP OF THE CARDIOVASCULAR STRUCTURES OF THE STERNUM: All of the cardiovascular structures lie a safe distance limited upper ABDOMEN: unremarkable BONES and SOFT TISSUES: [employer]essionals (topogram) images: No additional findings. IMPRESSION IMPRESSION: PPM/ICD device and lead course/position as described above. Infrastructure Analyst: PSCB Transcribe Date/Time: Nov 07 2024 12:15P Dictated by : YASSINE HUYNH MD This examination was interpreted and the report reviewed and electronically signed by: YASSINE HUYNH MD on Nov 07 2024 3:22PM [facility] CT Heart W contrast IVOrdere d By: [facility] Provider on 11-07-2024 [facility] Comprehensive metabolic 2000 panelon 11-07-2024 Albumin [Mass/Vol] 4.5 g/dL Normal 3.9-4.9 [facility] Comment on above: Order Comment: Speci men Type: BLOOD SPECIMENOrdering Facility: [facility] Address: [address] [place] [address] Performed By: #### 2 4323-8 ####[facility] LABIA [id number] [place] [address] [place] ALP [Catalytic activity/Vol] 91 U/L Normal 38-113 [facility] Comment on above: Order Comment: Speci men Type: BLOOD SPECIMENOrdering Facility: [facility] Address: [address] [place] [address] Performed By: #### 2 4323-8 ####[facility] LABIA [id number] [place] [address] [place] ALT [Catalytic activity/Vol] 19 U/L Normal 10-54 [facility] Comment on above: Order Comment: Speci men Type: BLOOD SPECIMENOrdering Facility: [facility] Address: [address] [place] [address] Performed By: #### 2 4323-8 ####[facility] LABCLIA [id number] [facility] [address] [address] [place] Anion gap [Moles/Vol] 11 mmol/L Normal 8-15 [facility] Comment on above: Order Comment: Speci men Type: BLOOD SPECIMENOrdering Facility: [facility] Address: [address] [place] [address] Performed By: #### 2 4323-8 ####[facility] LABCLIA [id number] [place] [id number] [place] AST [Catalytic activity/Vol] 22 U/L Normal 14-40 [facility] Comment on above: Order Comment: Speci men Type: BLOOD SPECIMENOrdering Facility: [facility] Address: [address] [place] [address] Performed By: #### 2 4323-8 ####[facility] LABCLIA [id number] [place] [id number] [place] Bilirubin [Mass/Vol] 0.4 mg/dL Normal 0.2-1.3 [facility] Comment on above: Order Comment: Speci men Type: BLOOD SPECIMENOrdering Facility: [facility] Address: [address] [place] [address] Performed By: #### 2 4323-8 ####[facility] LABCLIA [id number] [facility] [place] [id number] [place] Calcium [Mass/Vol] 9.4 mg/dL Normal 8.5-10.2 [facility] Comment on above: Order Comment: Speci men Type: BLOOD SPECIMENOrdering Facility: [facility] Address: [address] [place], [place] [id number] Performed By: #### 2 4323-8 ####[facility] LABCLIA [id number] [place] [id number] [place] Chloride [Moles/Vol] 100 mmol/L Normal 98-107 [facility] Comment on above: Order Comment: Speci men Type: BLOOD SPECIMENOrdering Facility: [facility] Address: [address] [place] [address] Performed By: #### 2 4323-8 ####[facility] LABCLIA [id number] [address] [address] [place] CO2 [Moles/Vol] 24 mmol/L Normal 22-30 [facility] Comment on above: Order Comment: Speci men Type: BLOOD SPECIMENOrdering Facility: [facility] Address: [address] [place] [address] Performed By: #### 2 4323-8 ####[facility] LABCLIA [id number] [address] [place] [facility] Creatinine [Mass/Vol] 0.82 mg/dL Normal 0.73-1.22 [facility] Comment on above: Order Comment: Speci men Type: BLOOD SPECIMENOrdering Facility: [facility] Address: [address] [place] [address] Performed By: #### 2 4323-8 ####[facility] LABCLIA [id number] [address] Creatinine and Glomerular filtration rate.predicted panel (S/P/Bld) 111 mL/min/1.73m??? Normal >=60 [facility] Comment on above: Order Comment: Speci men Type: BLOOD SPECIMENOrdering Facility: [facility] [facility] Address: [address] [place] [address] Result Comment: Claudette mated Glomerular Filtration Rate (eGFR) is calculated using the 2020 CKD-EPI creatinine equation. This equation utilizes serum creatinine, sex, and age as parameters. The creatinine assay has traceable calibration to isotope dilution-mass spectrometry. Refer to KDIGO guidelines for clinical interpretation. In patients with unstable renal function, e.g. those with acute kidney injury, the eGFR may not accurately reflect actual GFR. Performed By: #### 2 4323-8 ####[facility] LABCLIA [id number] [address] [address] [place] Glucose [Mass/Vol] 83 mg/dL Normal 74-99 [facility] Comment on above: Order Comment: Speci men Type: BLOOD SPECIMENOrdering Facility: [facility] Address: [address] [place] [address] Result Comment: The [place] Diabetes Association (ADA) provides guidance for cutoff values for fasting glucose and random glucose. The ADA defines fasting as no caloric intake for at least 8 hours. Fasting plasma glucose results between 100 to 125 mg/dL indicate increased risk for diabetes (prediabetes). Fasting plasma glucose results greater than or equal to 126 mg/dL meet the criteria for diagnosis of diabetes. In the absence of unequivocal hyperglycemia, results should be confirmed by repeat testing. In a patient with classic symptoms of hyperglycemia or hyperglycemic crisis, random plasma glucose results greater than or equal to 200 mg/dL meet the criteria for diagnosis of diabetes. Reference: Standards of Medical Care in Diabetes 2016, [employer] Association. Diabetes Care. 2016.39(Suppl 1). Performed By: #### 2 4323-8 ####[facility] LABCLIA [id number] [place] [address] [place] Potassium [Moles/Vol] 4.2 mmol/L Normal 3.7-5.1 [facility] Comment on above: Order Comment: Speci men Type: BLOOD SPECIMENOrdering Facility: [facility] Address: [address] [place] [address] Performed By: #### 2 4323-8 ####[facility] LABIA [id number] [place] [id number] [place] Protein [Mass/Vol] 7.8 g/dL Normal 6.3-8.0 [facility] Comment on above: Order Comment: Speci men Type: BLOOD SPECIMENOrdering Facility: [facility] Address: [address] [place] [address] Performed By: #### 2 4323-8 ####[facility] LABCLIA [id number] [place] [id number] [place] Sodium [Moles/Vol] 135 mmol/L Low 136-144 [facility] Comment on above: Order Comment: Speci men Type: BLOOD SPECIMENOrdering Facility: [facility] Address: [address] [place] [address] Performed By: #### 2 4323-8 ####[facility] LABIA [id number] [place] [id number] [place] Urea nitrogen [Mass/Vol] 11 mg/dL Normal 9-24 [facility] Comment on above: Order Comment: Speci men Type: BLOOD SPECIMENOrdering Facility: [facility] Address: [address] [place] [address] Performed By: #### 2 4323-8 ####[facility] LABIA [id number] [place] [id number] [place] ECG COMPLETEon 11-07-2024 ECG COMPLETE Ventricular Rate : 119 BPM Atrial Rate : 119 BPM P-R Interval : 48 ms QRS Duration : 194 ms Q-T Interval : 410 ms QTC Calculation(Bazett) : 576 ms Calculated P Crosby : 109 degrees Calculated R Crosby : -77 degrees Calculated T Crosby : 84 degrees VENTRICULAR PACEMAKER RHYTHM ABNORMAL ECG Reconfirmed by MD DEL VALLE TAMANNA ([id number]) on 11/24/2024 12:23:50 PM NAME : ELEAZAR HARRISON PID : [id number] : 1980 Gender : Male Race : ORD : [id number] Procedure Date : Nov 07 2024 10:48:39 Edit Date : Nov 24 2024 12:23:52 Diagnosis: VENTRICULAR PACEMAKER RHYTHM ABNORMAL ECG Reconfirmed by MD DEL VALLE TAMANNA ([id number]) on 11/24/2024 12:23:50 PM Test Reason : Location : 314 : J14 J1-4 Overread By : MD DEL VALLE TAMANNA Edited By : MD DEL VALLE TAMANNA Referred By : CLINT HILTON Acquired by : ODILON CONRAD [facility] No Panel Informationon 11-07 Radiology Study observation (narrative) [facility] PT panel Coag (PPP)on 2024 INR Coag (PPP) [Relative time] 1.0 {INR} Normal 0.9-1.3 [facility] Comment on above: Order Comment: Mira novoa Type: BLOOD SPECIMENOrdering Facility: [facility] Address: [address] [place] [address] Result Comment: Hemalatha min K Antagonist (VKA) Therapeutic Range: INR 2 to 3 (Target INR of 2.5) Note: For patients treated with VKA drugs, such as warfarin, the [employer] 2012 Guideline recommends a therapeutic INR range of 2 to 3 (target INR of 2.5). This recommendation includes high-risk patients with antiphospholipid syndrome with previous arterial or venous thromboembolism, current-generation mechanical or bioprosthetic aortic heart valve replacement. Note: Patients with mechanical aortic valve replacement and additional risk factors for thromboembolic events (atrial fibrillation, previous thromboembolism, LV dysfunction, hypercoagulable conditions) or an older generation mechanical AVR (i.e., ball in-Cage) or any mechanical MVR should have a INR therapeutic range of 2.5 to 3.5 (target INR of 3). Taylor GH, et al. Chest 2012, 141:7S-47S Tom RA, et al. [facility] 2017, 70: 252-289 Performed By: #### 3 4528-0 ####[facility] LABIA [id number] [place] [id number] [place] PT Coag (PPP) [Time] 10.9 s Normal 9.7-13.0 [facility] Comment on above: Order Comment: Mira novoa Type: BLOOD SPECIMENOrdering Facility: [facility] Address: [address] [place] [address] Performed By: #### 3 4528-0 ####[facility] [id number] [place] [id number] [place] TYPE AND SCREEN,30 DAYon ABO O Normal [facility] Comment on above: Order Comment: Mira novoa Type: BLOOD SPECIMENOrdering Facility: [facility] Address: [address] [place] [id number] Performed By: #### T SCR30 ####[facility] BLO[facility] BANKCLIA [id number] [place] [id number] [place] [facility] Rh Nom (Bld) Positive Normal [facility] Comment on above: Order Comment: Speci men Type: BLOOD SPECIMENOrdering Facility: [facility] Address: [address] [place] [address] Performed By: #### T SCR30 ####[facility] BLOOD BANKCLIA [id number] [place] [id number] [place] XR CHEST 2V FRONTAL/LATon XR CHEST 2V FRONTAL/LAT * * *Final Report* * * DATE OF EXAM: Nov 07 2024 11:03AM JIX [id number] - XR CHEST 2V FRONTAL/LAT / PROCEDURE REASON: multiple diagnoses * * * * Physician Interpretation * * * * EXAMINATION: CHEST RADIOGRAPH (2 VIEW FRONTAL and LATERAL) CLINICAL HISTORY: Pacemaker Failure of pacemaker lead, initial encounter MQ: XC2_6 EXAM DATE/TIME: 11/07/2024 11:03 AM COMPARISON: Chest radiograph(s) dated 10/07/2020 RESULT: Lines, tubes, and devices: Cardiac pacing device with generator obscuring portions of the left lung. Lead(s) overlying the RA and RV. Lungs and pleura: No consolidation. No pleural effusion. No pneumothorax. Cardiomediastinal silhouette: Normal cardiomediastinal silhouette. Bones and soft tissues: Status post median sternotomy with normally aligned sternal wires. IMPRESSION: No acute radiographic abnormality. Infrastructure Analyst: PSCB Transcribe Date/Time: Nov 07 2024 4:01P Dictated by : JESSICA RAMOS MD This examination was interpreted and the report reviewed and electronically signed by: RICK THOMPSON MD on Nov 07 2024 5:23PM EST [id number] Normal [facility] XR Chest PA and Lateralon IMPRESSION: No acute radiographic abnormality. Infrastructure Analyst: PSCB Transcribe Date/Time: Nov 07 2024 4:01P Dictated by : JESSICA RAMOS MD This examination was interpreted and the report reviewed and electronically signed by: RICK THOMPSON MD on Nov 07 2024 5:23PM [facility] DIVISION OF RADIOLOGY * * *Final Report* * * DATE OF EXAM: Nov 07 2024 11:03AM JIX [id number] - XR CHEST 2V FRONTAL/LAT / PROCEDURE REASON: multiple diagnoses * * * * Physician Interpretation * * * * EXAMINATION: CHEST RADIOGRAPH (2 VIEW FRONTAL & LATERAL) CLINICAL HISTORY: Pacemaker Failure of pacemaker lead, initial encounter MQ: XC2_6 EXAM DATE/TIME: 11/07/2024 11:03 AM COMPARISON: Chest radiograph(s) dated 10/07/2020 RESULT: Lines, tubes, and devices: Cardiac pacing device with generator obscuring portions of the left lung. Lead(s) overlying the RA and RV. Lungs and pleura: No consolidation. No pleural effusion. No pneumothorax. Cardiomediastinal silhouette: Normal cardiomediastinal silhouette. Bones and soft tissues: Status post median sternotomy with normally aligned sternal wires. DIVISION OF RADIOLOGY Provider, [facility] - 11/07/2024 * * *Final Report* * * DATE OF EXAM: Nov 07 2024 11:03AM JIX [id number] - XR CHEST 2V FRONTAL/LAT / PROCEDURE REASON: multiple diagnoses * * * * Physician Interpretation * * * * EXAMINATION: CHEST RADIOGRAPH (2 VIEW FRONTAL & LATERAL) CLINICAL HISTORY: Pacemaker Failure of pacemaker lead, initial encounter MQ: XC2_6 EXAM DATE/TIME: 11/07/2024 11:03 AM COMPARISON: Chest radiograph(s) dated 10/07/2020 RESULT: Lines, tubes, and devices: Cardiac pacing device with generator obscuring portions of the left lung. Lead(s) overlying the RA and RV. Lungs and pleura: No consolidation. No pleural effusion. No pneumothorax. Cardiomediastinal silhouette: Normal cardiomediastinal silhouette. Bones and soft tissues: Status post median sternotomy with normally aligned sternal wires. IMPRESSION IMPRESSION: No acute radiographic abnormality. Infrastructure Analyst: PSCB Transcribe Date/Time: Nov 07 2024 4:01P Dictated by : JESSICA RAMOS MD This examination was interpreted and the report reviewed and electronically signed by: RICK THOMPSON MD on Nov 07 2024 5:23PM EST [facility] XR Chest PA and LateralOrder ed By: Ccf Provider on 11-07-2024 [facility] Leona 08-15-2024 CNPN Telephone (EPSMN) ELEAZAR HARRISON I ([id number]) 1980 M Date Time Provider Department 08/15/24 CLINT HILTON EPSWY During your visit today, we recorded the following information about you: Donna Kumar RN 08/15/2024 3:33 PM Signed ----- Message from Clint Hilton MD sent at 07/26/2024 10:27 AM EST ----- Regarding: Extraction Request EP LAB OR EXTRACTION EPS Lab REQUEST: OR 79 Lead Extraction PATIENT NAME: Eleazar Harrison REQUESTING PHYSICIAN: Clint Hilton IV, M.D. PROCEDURE PHYSICIAN: Clint Hilton IV, M.D. PROCEDURE REQUESTED: OR 79 Extraction - Extract RV lead. Reimplant LBBaP and CS leads PATIENT LOCATION: outpatient DX FOR PROCEDURE: Lead dysfunction DEVICE:Medtronic MEDICATIONS:Not on AC (List medications to be held AND how many days prior to procedure) Current Outpatient Medications: ? busPIRone (BUSPAR) 15 mg tablet ? sertraline (ZOLOFT) 100 mg tablet ? lisinopril (ZESTRIL, PRINIVIL) 5 mg tablet ? doxepin capsule 50 mg ? cetirizine (ZYRTEC) 10 mg tablet ? ADVIL 200 MG ORAL CAP AMBULATORY TESTING: OPD consult w/EP Doctor if not seen within 30 days of procedure date. OPD consult w/Cardiothoracic doctor: Anesthesia Clearance Device check EKG (Last EKG > 30 days) Chest X-ray (Last CXR > 1 [address]) [address] Scan w IVCON Echo (Last echo > 2 years) Labs (If > 30 days: CBC, CMP, 30 day type AND screen, confirm blood type, PT/INR) Patient had prior cardiac surgery: No. Needs Cardiac CT Is patient infected: No. COMMENTS: Switch to Medtronic device Donna Kumar RN 08/15/2024 3:34 PM Signed The date of 11-10-[address] Hilton offered AND accepted by patient. Needs all OR 79 appointments scheduled as per protocol the week before date. Allergies As of Date: 08/15/2024 (No Known Allergies) Date Reviewed: 07/26/2024 Reviewed by: Amie Little, KINSEY - Fully Assessed Reason for Visit: Schedule Surgery [1330] Cmt: OR 79 case Prescriptions as of 08/15/2024 - busPIRone (BUSPAR) 15 mg tablet Take 1 tablet by mouth twice daily. - sertraline (ZOLOFT) 100 mg tablet Take 100 mg by mouth once daily. - lisinopril (ZESTRIL, PRINIVIL) 5 mg tablet Take 5 mg by mouth once daily. - doxepin capsule 50 mg Take 50 mg by mouth daily at bedtime. - cetirizine (ZYRTEC) 10 mg tablet Take 10 mg by mouth once daily. - ADVIL 200 MG ORAL CAP as necessary Problem List As Of Date 08/15/2024 Noted Resolved Syncope and collapse [R55] 05/14/2005 04/14/2016 GENERAL MEDICAL EXAM NEC [Z00.8] 06/05/2005 ORTHOSTATIC HYPOTENSION [I95.1] 06/05/2005 BENIGN HYPERTENSION [I10] 06/05/2005 Pacemaker [Z95.0] 08/17/2006 Neurocardiogenic syncope [R55] Obesity, Class II, BMI 35-39.9 [E66.812] 10/07/2020 Obesity, Class I, BMI 30-34.9 [E66.811] 12/16/2020 Encounter Status:Closed by DONNA KUMAR RN on 08/15/24 Normal [facility] Office Visiton 06-06-2024 Follow-up visit [id number] Eleazar Harrison I 1980 M Date Provider Department Center 06/06/2024 [facility]VIRGILIO SANTOS CARD [facility] Family History Problem Relation Age of Onset Coronary artery disease Mother Hypertension Mother Malig Hypertension Father Hypertension Maternal Grandmother Coronary artery disease Maternal Grandfather Hypertension Maternal Grandfather Cancer Paternal Grandmother Hypertension Paternal Grandmother Coronary artery disease Paternal Grandfather Hypertension Paternal Grandfather Stroke Paternal Grandfather Family Status - Relation Status Age at Mother Father Maternal Grandmother Maternal Grandfather Paternal Grandmother Paternal Grandfather Level of Service:09556 ND OFFICE/OUTPATIENT ESTABLISHED LOW MDM 20 MIN Normal [facility] CNOVon 06-01-2024 CNOV Office Visit (CARDMN ) ELEAZAR HARRISON I ([id number]) 1980 M Date Time Provider Department 06/01/24 7:45 AM ANDREA BAEZ CARDMN During your visit today, we recorded the following information about you: Pulse Blood pressure Weight Height 72/minute 157/91 109.3 kg 1.803 m Andrea Baez MD 06/01/2024 8:00 PM [facility] [place] Slim Burris Department of Cardiovascular Medicine SECTION OF CARDIAC PACING and ELECTROPHYSIOLOGY OUTPATIENT VISIT DATE June 01, 2024 OUTPATIENT VISIT TYPE NEW PRIMARY CARE PHYSICIAN: Heather Hong MD [facility] [place] [address] REFERRING PHYSICIAN: Virgilio Santos MD [address] [place] [phone] CHIEF COMPLAINT: Device management HISTORY OF PRESENT ILLNESS/NURSING INTAKE HISTORY: Mr. Harrison is a 43 year old male who presents today for device management. He was a former patient of Dr. Irving, last seen on 12/16/2020. He has a past history of HTN, IBS, neurocardiogenic syncope s/p dual chamber pacemaker insertion 02/2006 with generator change out 2011. He had developed prolonged ND interval and AV block and now is paced in the RV over 80% of the time despite prolonged AV intervals. The patient developed the need to RV pace since 2017 and developed fatigue and reduced LVEF (30-35%) per echo done at outside hospital in April 2020. The plan was to proceed with extraction of his current Biotronik sytem (all) and implanting MDT MANAGER CHINA-D. However, he had an echo which showed EF 55%, so procedure was cancelled due to he is neither a candidate for MANAGER CHINA or ICD upgrade. He then underwent a generator change and his Biotronik PPM gen was changed for a Collusion generator to give a more metabiolic sensor driven rate control . He had metabolic stress test which was abnormal due to low functional capacity as he achieved 44% of PMHR. He continues to have episodes of brief syncope daily. He has not sustained any injuries with the falls from the syncopal events, but he usually is able to sit or lay down when he feels one coming on. He endorses fatigue, shortness of breath with exertion, and occasional lightheadedness.. He sometimes has irregular palpitations with exertion. He has sleep apnea and wears CPAP. Patient denies orthopnea, PND, nearsyncope. PAST MEDICAL HISTORY Diagnosis Date Irritable bowel syndrome Irritable bowel Neurocardiogenic syncope Pacemaker Sleep apnea CPAP Unspecified essential hypertension PAST SURGICAL HISTORY Procedure Laterality Date APPENDECTOMY age 18 SOCIAL HISTORY Social History Tobacco Use Smoking status: Former Current packs/day: 0.00 Average packs/day: 1 pack/day for 7.0 years (7.0 ttl pk-yrs) Types: Cigarettes Start date: 06/11/1999 Quit date: 06/11/2006 Years since quittin.9 Smokeless tobacco: Current Types: Chew Vaping Use Vaping status: Never Used Substance Use Topics Alcohol use: Not Currently Comment: rare Drug use: Not Currently FAMILY HISTORY Problem Relation Age of Onset Hypertension Mother Asthma Mother Ischemic Heart Disease Mother Hypertension Father Pancreatitis Father Hypertension Maternal Grandmother Hypertension Maternal Grandfather Ischemic Heart Disease Maternal Grandfather Hypertension Paternal Grandmother other (malignant neoplastic disease) Paternal Grandmother Hypertension Paternal Grandfather Ischemic Heart Disease Paternal Grandfather Stroke Paternal Grandfather Liver Cancer Son 0 s/p liver transplant x 2 (diagnosed age 6 months) ALLERGIES: ALLERGIES No Known Allergies MEDICATIONS: busPIRone (BUSPAR) 15 mg tablet Take 1 tablet by mouth twice daily. sertraline (ZOLOFT) 100 mg tablet Take 100 mg by mouth once daily. carvedilol (COREG) 3.125 mg tablet Take 3.125 mg by mouth twice daily with meals. glycopyrrolate (ROBINUL) 1 mg tablet Take 1 mg by mouth once daily. lisinopril (ZESTRIL, PRINIVIL) 5 mg tablet Take 5 mg by mouth once daily. doxepin capsule 50 mg Take 50 mg by mouth daily at bedtime. aspirin, enteric coated (ASPIRIN, ENTERIC COATED) 81 mg EC tablet Take 81 mg by mouth once daily. pyridostigmine (MESTINON) 60 mg tablet Take 60 mg by mouth once daily. cetirizine (ZYRTEC) 10 mg tablet Take 10 mg by mouth once daily. ADVIL 200 MG ORAL CAP as necessary REVIEW OF SYSTEMS: General, constitutional: Weight loss or gain- No, Fever or chills-No, Weakness-No, Trouble sleeping-No. Head, Eyes, Ears, Mouth: Headache, head injury-No, Glasses or contact lenses-No, Pain-No, Impaired vision-No, Decreased hearing-No, Ringing in ears-No, Nose bleeds-No, Dental difficulties-No, Bleeding gums-No, Dentures-No. Neck: Swelling-No, Pain-No, Stiffness-No. Respiratory: Cough-No, Spitting up blood-No, Shortness of breath-No, Wheezing or asthma-No. (more content not included)... [facility] ECG COMPLETEon 06-01-2024 ECG COMPLETE Ventricular Rate : 7 2 BPM Atrial Rate : 72 BPM P-R Interval : 116 ms QRS Duration : 160 ms Q-T Interval : 430 ms QTC Calculation(Bazett) : 470 ms Calculated P Crosby : 47 degrees Calculated R Crosby : -63 degrees Calculated T Crosby : -46 degrees AV DUAL-PACED RHYTHM WITH OCCASIONAL PREMATURE VENTRICULAR COMPLEXES ABNORMAL ECG Confirmed by MICHAEL OVERTON MD ([id number]) on 07/06/2024 12:00:25 PM NAME : ELEAZAR HARRISON PID : [id number] : 1980 Gender : Male Race : ORD : [id number] Procedure Date : Jun 01 2024 07:33:15 Edit Date : Jul 06 2024 12:00:28 Diagnosis: AV DUAL-PACED RHYTHM WITH OCCASIONAL PREMATURE VENTRICULAR COMPLEXES ABNORMAL ECG Confirmed by MICHAEL OVERTON MD ([id number]) on 07/06/2024 12:00:25 PM Test Reason : Location : 314 : J14 07 Overread By : MICHAEL OVERTON MD Edited By : MICHAEL OVERTON MD Referred By : ANDREA BAEZ Acquired by : JANETTE COHEN [facility] Office Visiton 04-18-2024 Follow-up visit [id number] AugustinaEleazar Vazquez 1980 M Date Provider Department Center 04/18/2024 [facility] Family History Problem Relation Age of Onset Coronary artery disease Mother Hypertension Mother Malig Hypertension Father Hypertension Maternal Grandmother Coronary artery disease Maternal Grandfather Hypertension Maternal Grandfather Cancer Paternal Grandmother Hypertension Paternal Grandmother Coronary artery disease Paternal Grandfather Hypertension Paternal Grandfather Stroke Paternal Grandfather Family Status - Relation Status Age at Mother Father Maternal Grandmother Maternal Grandfather Paternal Grandmother Paternal Grandfather Level of Service:89777 ND OFFICE/OUTPATIENT ESTABLISHED LOW MDM 20 MIN Normal [facility] Brain Natri. Peptideon 04-16 Natriuretic peptide B (Bld) [Mass/Vol] 54 pg/mL Normal <300 [facility] Comment on above: Result Comment: An age-independent cutoff point of 300 pg/ml has a 98% negative predictive value excluding acute heart failure. Performed By: #### P T, TSH, PTT, CDP, BNP, ECENZ, FT4, BMP #### [facility] [address] [place] [address] Jewel Bearing Grinder: Clarence Covarrubias DO Trop/Myoglobinon 04-16-2022 Myoglobin [Mass/Vol] 47 ng/mL Normal 28-72 [facility] Comment on above: Performed By: #### E CENZ #### [facility] [address] [place] [address] Jewel Bearing Grinder: Clarence Covarrubias DO Troponin, High Sens 10 ng/L Normal 0-22 [facility] Comment on above: Result Comment: High Sensitivity Troponin values cannot be compared with other Troponin methodologies. Patients with high levels of Biotin oral intake (i.e >5mg/day) may have falsely decreased Troponin levels. Samples collected within 8 hours of biotin intake may require additional information for diagnosis. Performed By: #### E CENZ #### [facility] [address] [place] [address] Jewel Bearing Grinder: Clarence Covarrubias DO Troponinon 04-16-2022 Troponin, High Sens 13 ng/L Normal 0-22 [facility] Comment on above: Result Comment: High Sensitivity Troponin values cannot be compared with other Troponin methodologies. Patients with high levels of Biotin oral intake (i.e >5mg/day) may have falsely decreased Troponin levels. Samples collected within 8 hours of biotin intake may require additional information for diagnosis. Performed By: #### P T, TSH, PTT, CDP, BNP, ECENZ, FT4, BMP #### [facility] [address] [place], [place] [id number] Jewel Bearing Grinder: Clarence Covarrubias DO APTTon 04-15-2022 aPTT Coag (Bld) [Time] 28.1 s Normal 24.0-36.0 [facility] Comment on above: Result Comment: IV Heparin Therapy Range: 62.0-94.0 Performed By: #### P T, TSH, PTT, CDP, BNP, ECENZ, FT4, BMP #### [facility] [address] [place] [address] Jewel Bearing Grinder: Clarence Covarrubias DO aPTT Coag (Bld) [Time] 28.1 s [facility] Comment on above: IV Heparin Therapy Range: 62.0-94.0 Basic Metabolic Panelon 10 Anion gap [Moles/Vol] 16 mmol/L 9 - 17 mmol/L [facility] [employer] Calcium [Mass/Vol] 9.4 mg/dL 8.6 - 10. 4 mg/dL [facility] [employer] Chloride [Moles/Vol] 99 mmol/L 98 - 10 7 mmol/L [facility] CO2 [Moles/Vol] 20 mmol/L 20 - 31 mmol/L [facility] Creatinine [Mass/Vol] 0.93 mg/dL 0.7 - 1.2 mg/dL [facility] GFR/1.73 sq M.predicted MDRD (S/P/Bld) [Vol rate/Area] - PINF [facility] Comment on above: Effective Apr 13, 2022 These results are not intended for use in patients <18 years of age. eGFR results are calculated without a race factor using the 2020 CKD-EPI equation. Careful clinical correlation is recommended, particularly when comparing to results calculated using previous equations. The CKD-EPI equation is less accurate in patients with extremes of muscle mass, extra-renal metabolism of creatine, excessive creatine ingestion, or following therapy that affects renal tubular secretion. Glucose [Mass/Vol] 138 mg/dL High 70 - 99 mg/dL [facility] Interpretation and review of laboratory results Abnormal [facility] Potassium [Moles/Vol] 3.6 mmol/L Low 3.7 - 5.3 mmol/L [facility] Sodium [Moles/Vol] 135 mmol/L 135 - 144 mmol/L [facility] Urea nitrogen (BldV) [Mass/Vol] 13 mg/dL 6 - 20 mg/dL [facility] Basic Metabolic Profon 04-15 Anion gap [Moles/Vol] 16 mmol/L Normal 9-17 [facility] Comment on above: Performed By: #### P T, TSH, PTT, CDP, BNP, ECENZ, FT4, BMP #### [facility] [address] [place], [place] [id number] Jewel Bearing Grinder: Clarence Covarrubias DO Calcium [Mass/Vol] 9.4 mg/dL Normal 8.6-10.4 [facility] Comment on above: Performed By: #### P T, TSH, PTT, CDP, BNP, ECENZ, FT4, BMP #### [facility] [address], [place] [id number] Jewel Bearing Grinder: Clarence Covarrubias DO Chloride [Moles/Vol] 99 mmol/L Normal 98-107 [facility] Comment on above: Performed By: #### P T, TSH, PTT, CDP, BNP, ECENZ, FT4, BMP #### [facility] [address] [place] [address] [employer] Bearing Grinder: Clarence Covarrubias DO CO2 [Moles/Vol] 20 mmol/L Normal 20-31 [facility] Comment on above: Performed By: #### P T, TSH, PTT, CDP, BNP, ECENZ, FT4, BMP #### [facility] [address] [facility] [place] [address] [employer]el Bearing Grinder: Clarence Covarrubias DO Creatinine [Mass/Vol] 0.93 mg/dL Normal 0.70-1.20 [facility] Comment on above: Performed By: #### P T, TSH, PTT, CDP, BNP, ECENZ, FT4, BMP #### [facility] [address] [facility] [place] [address] [employer]el Bearing Grinder: Clarence Covarrubias DO GFR/1.73 sq M.predicted among non-blacks MDRD (S/P/Bld) [Vol rate/Area] mL/min/{1.73_m2} Normal >60 [facility] Comment on above: Result Comment: Effective Apr 13, 2022 These results are not intended for use in patients <18 years of age. eGFR results are calculated without a race factor using the 2020 CKD-EPI equation. Careful clinical correlation is recommended, particularly when comparing to results calculated using previous equations. The CKD-EPI equation is less accurate in patients with extremes of muscle mass, extra-renal metabolism of creatine, excessive creatine ingestion, or following therapy that affects renal tubular secretion. Performed By: #### P T, TSH, PTT, CDP, BNP, ECENZ, FT4, BMP #### [facility] [address] [facility] [place] [address] Jewel Bearing Grinder: Clarence Covarrubias DO Glucose [Mass/Vol] 138 mg/dL High 70-99 [facility] Comment on above: Performed By: #### P T, TSH, PTT, CDP, BNP, ECENZ, FT4, BMP #### [facility] [address] [facility] [place] [address] Jewel Bearing Grinder: Clarence Covarrubias DO Potassium [Moles/Vol] 3.6 mmol/L Low 3.7-5.3 [facility] Comment on above: Performed By: #### P T, TSH, PTT, CDP, BNP, ECENZ, FT4, BMP #### [facility] [address] [place] [address] Jewel Bearing Grinder: Clarence Covarrubias DO Sodium [Moles/Vol] 135 mmol/L Normal 135-144 [facility] Comment on above: Performed By: #### P T, TSH, PTT, CDP, BNP, ECENZ, FT4, BMP #### [facility] [address] [place] [address] Jewel Bearing Grinder: Clarence Covarrubias DO Urea nitrogen [Mass/Vol] 13 mg/dL Normal 6-20 [facility] Comment on above: Performed By: #### P T, TSH, PTT, CDP, BNP, ECENZ, FT4, BMP #### [facility] [address] [place] [address] Jewel Bearing Grinder: Clarence Covarrubias DO Brain Natriuretic Peptideon 04-15-2022 Natriuretic peptide B (Bld) [Mass/Vol] 54 pg/mL NINF - 300 pg/mL [facility] Comment on above: An age-independent cutoff point of 300 pg/ml has a 98% negative predictive value excluding acute heart failure. [facility] CBC with Auto Differentialon 04-15-2022 Absolute Eos # 0.10 [facility] Absolute Lymph # 2.70 [facility] Absolute Obion # 0.80 [facility] Basophils (Bld) [#/Vol] 0.10 10*3/uL [facility] Basophils/100 WBC (Bld) 1 % 0 - 2 % [facility] Eosinophils/100 WBC (Bld) 1 % 0 - 4 % [facility] Hematocrit (Bld) [Volume fraction] 39.7 % Low 41 - 53 % [facility] Hemoglobin (Bld) [Mass/Vol] 14.0 g/dL 13.5 - 17.5 g/dL [facility] Interpretation and review of laboratory results Abnormal [facility] Lymphocytes/100 WBC (Bld) 27 % 24 - 44 % [facility] MCH (RBC) [Entitic mass] 29.8 pg 26 - 34 pg [facility] MCHC (RBC) [Mass/Vol] 35.3 g/dL 31 - 37 g/dL B [facility] MCV (RBC) [Entitic vol] 84.5 fL 80 - 100 fL [facility] Monocytes/100 WBC (Bld) 8 % High 1 - 7 % [facility] Platelet distribution width (Bld) [Ratio] 12.6 % 11.5 - 14.9 % [facility] Platelet mean volume (Bld) [Entitic vol] 8.5 fL 6 - 12 fL [facility] Platelets (Bld) [#/Vol] 293 10*3/uL [facility] RBC (Bld) [#/Vol] 4.70 10*6/uL 4.5 - 5.9 m/uL [facility] Segmented neutrophils/100 WBC (Bld) 63 % 36 - 66 % [facility] Segs Absolute 6.10 [facility] WBC (Bld) [#/Vol] 9.7 10*3/uL [facility] CBC with Diffon 04-15-2022 Abs. Basophil 0.10 k/uL Normal 0.0-0.2 [facility] Comment on above: Performed By: #### P T, TSH, PTT, CDP, BNP, ECENZ, FT4, BMP #### [facility] [address] [place] [address] Jewel Bearing Grinder: Clarence Covarrubias DO Abs.Neutrophil (Seg) 6.10 k/uL Normal 1.3-9.1 [facility] Comment on above: Performed By: #### P T, TSH, PTT, CDP, BNP, ECENZ, FT4, BMP #### [facility] [address] [place] [address] Jewel Bearing Grinder: Clarence Covarrubias DO Basophils/100 WBC (Bld) 1 % Normal 0-2 [facility] Comment on above: Performed By: #### P T, TSH, PTT, CDP, BNP, ECENZ, FT4, BMP #### [facility] [address] [place] [address] Jewel Bearing Grinder: Clarence Covarrubias DO Eosinophils (Bld) [#/Vol] 0.10 10*3/uL Normal 0.0-0.4 [facility] Comment on above: Performed By: #### P T, TSH, PTT, CDP, BNP, ECENZ, FT4, BMP #### [facility] [address] [place] [address] Jewel Bearing Grinder: Clarence Covarrubias DO Eosinophils/100 WBC (Bld) 1 % Normal 0-4 [facility] Comment on above: Performed By: #### P T, TSH, PTT, CDP, BNP, ECENZ, FT4, BMP #### [facility] [address] [place] [address] Jewel Bearing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 Comment on above: Schedule Surgery (OR 79 case) Start: 08-04-2024 End: 08-04-2024 Admission to same day surgery center Clint Hilton MD Work Phone: Cardiology Comment on above: Surgery Start: 08-04-2024 End: 08-04-2024 ambulatory Clint Hilton MD Work Phone: Cardiology Start: 07-26-2024 End: 07-26-2024 ambulatory Clint Hilton MD Work Phone: Cardiology Comment on above: Pacemaker lead failu re, initial encounter (Primary Dx); Chronic systolic (congestive) heart failure (HCC); Pacemaker; Obesity, Class II, BMI 35-39.9 Start: 07-26-2024 End: 07-26-2024 Telemedicine consultation with patient Clint Hilton MD Work Phone: Cardiology Start: 06-06-2024 End: 06-06-2024 Orders Only Clint Hilton MD Work Phone: Cardiology Comment on above: Atrial fibrillation, unspecified type (HCC) (Primary Dx) Start: 06-01-2024 End: 06-01-2024 Patient encounter procedure Andrea Baez MD Work Phone: Cardiology Comment on above: AICD lead malfunctio n [T82.110A] (Primary Dx); CHB (complete heart block) (HCC); Cardiac pacemaker in situ [Z95.0]; Cardiac pacemaker in situ; Palpitation Start: 06-01-2024 End: 06-01-2024 Subsequent hospital visit by physician [facility] Work Phone: Cardiology Comment on above: Pacemaker reprogramm ing/check [Z45.018] Start: 06-01-2024 End: 06-01-2024 ambulatory ANDREA BAEZ Facility:[facility] Start: 04-26-2024 End: 04-26-2024 Orders Only Andrea Baez MD Work Phone: Cardiology Comment on above: Sinus node dysfuncti on (HCC) (Primary Dx) Start: 04-18-2024 End: 04-18-2024 ambulatory [facility] Start: 02-17-2024 End: 02-17-2024 Documentation procedure Anthony Mcneill MD Work Phone: [facility] Start: 02-17-2024 End: 02-17-2024 Telephone encounter Anthony Mcneill MD Work Phone: [facility] Start: 12-22-2023 [facility] Start: 10-11-2023 Telephone encounter Sheeba Villalta [facility] Start: 09-22-2023 End: 09-22-2023 Office outpatient new 45 [facility] FINAL FINISHER-NURSE COORDINATOR Work Phone: [facility] Comment on above: Obstructive sleep ap eloise (adult) (pediatric) (Primary Dx); CPAP use counseling; Class 1 obesity with body mass index (BMI) of 33.0 to 33.9 in adult, unspecified obesity type, unspecified whether serious comorbidity present Start: 09-22-2023 End: 09-22-2023 ambulatory [facility] Start: 09-13-2023 Documentation procedure Anthony Mcneill MD Work Phone: [facility] Start: 09-13-2023 Telephone encounter Anthony hernandez MD Work Phone: [facility] Start: 08-09-2023 End: 08-10-2023 ambulatory Charity Carrera PA-C Facility[facility] Start: 07-27-2023 [facility] Start: 07-20-2023 Telephone encounter Rody castro [facility] Start: 04-15-2022 End: 04-16-2022 Emergency department patient visit LISET MADSEN [facility] Start: 04-15-2022 End: 04-16-2022 Emergency department patient visit Liset Madsen MD [facility] ED Comment on above: Chest pain, unspecif ied type (Primary Dx) Start: 01-02-2021 End: 01-03-2021 ambulatory VIRGILIO DANIELLE Facility:[facility] Start: 09-20-2020 End: 09-20-2020 Orders Only Lucien Irving Work Phone: Cardiology Comment on above: Atrial fibrillation, unspecified type (HCC) (Primary Dx) Cardiac pacemaker in situ (Primary Dx) Start: 05-24-2020 End: 05-25-2020 Patient encounter procedure SILVESTRE SOMMERS Facility: Start: 06-05-2005 Full examination performed Andrea Baez MD Work Phone: [facility] Work Phone: Procedures Date Procedure Procedure Detail Performing Clinician Start: 11-07-2024 Prgrmg dev eval impl antable subq lead dfb system [facility] [place] Provider Start: 11-07-2024 Antibody screen CLINT HILTON Comment on above: Order Comment: Speci men Type: BLOOD SPECIMENOrdering Facility: [facility] Address: [address] [place] [address] Performed By: #### T [id number] ####[facility] BLOOD BANKCLIA [id number] [address] [place] [address] [place] Start: 11-07-2024 Radiologic exam ches t 2 views Clint Hilton MD Work Phone: Start: 11-07-2024 Ecg routine ecg w/le ast 12 lds i&r only Clint Hilton MD Work Phone: Start: 11-07-2024 Ct heart contrast ev al cardiac structure&morph Clint Hilton MD Work Phone: Start: 06-01-2024 Prgrmg dev eval impl antable subq lead dfb system [facility] [place] Provider Start: 04-15-2022 Assay of troponin quantitative Liset Madsen MD Start: 04-15-2022 Ecg routine ecg w/le ast 12 lds w/i&r Liset Madsen MD Start: 04-15-2022 TROP/MYOGLOBIN Liset Madsen MD Start: 04-15-2022 Radiologic exam ches t single view Liset Madsen MD Start: 04-15-2022 Basic metabolic pane l calcium total Liset Madsen MD Start: 04-15-2022 TROP/MYOGLOBIN Liset Madsen MD Start: 04-13-2018 Lipid 1996 panel - S debbi or Plasma Andrea Baez MD Work Phone: Plan of Treatment Date Care Activity Detail Author Start: 12-17-2026 DTaP,Tdap and Td Vaccines (2 - Td or Tdap) DTaP,Tdap and Td Vaccines (2 - Td or Tdap) [facility] Start: 12-17-2026 DTaP/Tdap/Td vaccine (2 - Td or Tdap) DTaP/Tdap/Td vaccine (2 - Td or Tdap) [facility] Start: 12-17-2026 Urine microalbumin profile DTaP,Tdap,Td Vaccine (2 - Td or Tdap) [facility] Start: 08-16-2025 End: 11-15-2025 TYPE AND SCREEN,30 DAY TYPE AND SCREEN,30 DAY Blood Bank Routine Pacemaker Failure of pacemaker lead, initial encounter Expected: 08/16/2025 (Approximate), Expires: 11/15/2025 [facility] Comment on above: Expected: 08/16/2025 (Approximate), Expires: 11/15/2025 Start: 12-22-2024 End: 12-22-2024 Patient encounter procedure 12/22/2024 1:30 PM EDT Appointment Cardiology [address] [place] [address] OUTPATIENT 4-6W DEVICE CHECK (PACEMAKER) Cardiology Comment on above: OUTPATIENT 4-6W DEVICE CHECK (PACEMAKER) Start: 11-10-2024 End: 11-10-2024 Admission to same day surgery center Admitting Comment on above: REMOVAL PACEMAKER PE RMANENT Start: 11-10-2024 End: 11-10-2024 Ins new/rplcmt prm pm w/transv eltrd atrial&vent JONATHAN [facility] Start: 11-10-2024 End: 11-10-2024 Insj eltrd car micki sys tm insj dfb/pm pls gen [facility]ON[facility] Start: 11-10-2024 End: 11-10-2024 Removal permanent pacemaker pulse generator only JONATHAN [facility] Start: 11-10-2024 End: 11-10-2024 Rmvl transvns pm eltrd dual lead sys JONATHAN MO[facility] Start: 11-10-2024 Subsequent hospital visit by physician Admitting Comment on above: Syncope and collapse [R55], Chronic systolic CHF (congestive heart failure) (HCC) [I50.22], AV block [I44.30], PVC (premature ventricular contraction) [I49.3] Start: 11-07-2024 End: 11-07-2024 Patient encounter procedure 11/07/2024 3:30 PM EDT Office Visit Cardiothoracic [address] [place] [address] OR 79 LEAD EXTRACTION Cardiothoracic Comment on above: OR 79 LEAD EXTRACTIO N Start: 11-07-2024 End: 11-07-2024 Patient encounter procedure 11/07/2024 2:20 PM EDT Office Visit Cardiothoracic [address] [place] [address] OR 79 LEAD EXTRACTION Cardiothoracic Comment on above: OR 79 LEAD EXTRACTIO N Start: 11-07-2024 End: 11-07-2024 ambulatory 11/07/2024 11:00 AM EDT Results Only [facility] J-4 Draw Station [address] [id number] ICD EXTRACTION AND REIMPLANT [facility] J1-4 Draw Station Comment on above: ICD EXTRACTION AND R EIMPLANT Start: 11-07-2024 End: 11-07-2024 Patient encounter procedure 11/07/2024 10:30 AM EDT Appointment Radiology [address] [id number] ICD EXTRACTION AND REIMPLANT Radiology Comment on above: ICD EXTRACTION AND R EIMPLANT Start: 11-07-2024 End: 11-07-2024 Patient encounter procedure Cardiology Comment on above: OR 79 LEAD EXTRACTIO N ICD EXTRACTION AND R EIMPLANT Start: 09-21-2024 Adult BMI Screening Adult BMI Screen ing [facility] Start: 09-21-2024 Tobacco Screening Tobacco Screening [facility] Start: 09-20-2024 End: 12-20-2024 PT panel - Platelet poor plasma by Coagulation assay PROTHROMBIN TIME Lab Routine Paroxysmal atrial fibrillation (HCC) Expected: 09/20/2024, Expires: 12/20/2024 [facility] Work Phone: Comment on above: Expected: 09/20/2024 , Expires: 12/20/2024 Start: 09-13-2024 End: 12-13-2024 CBC panel - Blood by Automated count COMPLETE BLOOD COUNT Lab Routine Pacemaker Failure of pacemaker lead, initial encounter Expected: 09/13/2024, Expires: 12/13/2024 [facility] Comment on above: Expected: 09/13/2024 , Expires: 12/13/2024 Start: 09-13-2024 End: 12-13-2024 Comprehensive metabolic 2000 panel - Serum or Plasma COMPREHENSIVE METABOLIC PANEL Lab Routine Pacemaker Failure of pacemaker lead, initial encounter Expected: 09/13/2024, Expires: 12/13/2024 [facility] Work Phone: Comment on above: Expected: 09/13/2024 , Expires: 12/13/2024 Start: 09-13-2024 End: 12-13-2024 CONFIRM BLOOD TYPE CONFIRM BLOOD TYPE Blood Bank Routine Pacemaker Failure of pacemaker lead, initial encounter Expected: 09/13/2024, Expires: 12/13/2024 [facility] Comment on above: Expected: 09/13/2024 , Expires: 12/13/2024 Start: 07-26-2024 End: 07-26-2024 Patient encounter procedure 07/26/2024 9:45 AM EST Office Visit Cardiology [address] [phone] Clint Hilton MD [address] [place] [address] DX: CHB Cardiology Comment on above: DX: CHB Start: 07-26-2024 End: 07-26-2024 ambulatory 07/26/2024 9:00 AM EST Results Only Cardiology [address] [place] [id number] DX: CHB Cardiology Comment on above: DX: CHB Start: 06-01-2024 End: 06-01-2024 Patient encounter procedure 06/01/2024 2:15 PM EST Appointment Cardiology [address] [place] [address] DX: Pacemaker Lead Extraction, Battery on Pacemaker Cardiology Comment on above: DX: Pacemaker Lead E xtraction, Battery on Pacemaker Start: 06-01-2024 End: 07-01-2025 XR Chest PA and Lateral XR CHEST 2V FRONTAL/LAT Radiology Routine CHB (complete heart block) (HCC) Expected: 06/01/2024, Expires: 07/01/2025 [facility] Work Phone: Comment on above: Expected: 06/01/2024 , Expires: 07/01/2025 Start: 06-01-2024 End: 06-01-2024 ambulatory 06/01/2024 7:00 AM EST Results Only Cardiology [address] [place] [id number] DX: Pacemaker Lead Extraction, Battery on Pacemaker Cardiology Comment on above: DX: Pacemaker Lead E xtraction, Battery on Pacemaker Start: 06-01-2024 End: 06-01-2024 Patient encounter procedure Cardiology Comment on above: DX: Pacemaker Lead E xtraction, Battery on Pacemaker DX: Pacemaker Lead E xtraction, Battery on Pacemaker, Sinus Node Dysfunction Start: 03-12-2024 Covid-19 Vaccine ( season) Covid-19 Vaccine () [facility] Start: 03-12-2024 Covid-19 Vaccine ( season) Covid-19 Vaccine () [facility] Start: 03-12-2024 Influenza vaccination C [facility] Start: 12-22-2023 End: 12-22-2023 Patient encounter procedure 12/22/2023 9:15 AM EDT Office Visit [facility] [address] [address] Nicki Davenport, FINAL FINISHER-NURSE COORDINATOR [address] [address] [facility] Start: 12-03-2023 Adult BMI Screening Adult BMI Screen ing [facility] Start: 12-03-2023 Tobacco Screening Tobacco Screening [facility] Start: 09-22-2023 End: 09-22-2023 Patient encounter procedure 09/22/2023 2:00 PM EDT Office Visit [facility] [address] Nicki Davenport, FINAL FINISHER-NURSE COORDINATOR [address] [address] [facility] Start: 09-09-2023 End: 09-09-2023 Patient encounter procedure 09/09/2023 3:15 PM EST Office Visit [facility] [address] [place] [phone] Anthony Mcneill Jr., MD [address] [place] [address] [facility] Start: 07-28-2023 End: 07-28-2023 Patient encounter procedure 07/28/2023 11:45 AM EST Office Visit [facility] [address] [place] [address] Nicki Davenport, FINAL FINISHER-NURSE COORDINATOR [address] [place] [address] [facility] Start: 04-13-2023 Lipid panel Lipid Screening [facility] Start: 03-12-2023 COVID-19 Vaccine ( season) COVID-19 Vaccine ( season) [facility] Start: 03-12-2023 Influenza vaccination Influenza Vacc ine [facility] Start: 02-09-2022 Influenza vaccination Flu vaccine (# 1) [facility] Start: 03-12-2020 Influenza vaccination INFLUENZA (#1) [facility] Start: 02-01-2015 Lipid panel Lipids [facility] Start: 12-29-2014 Diabetes screen Diabetes screen [facility] Start: 12-29-2014 LIPID SCREEN LIPID SCREEN [facility] Start: 12-29-1998 Hepatitis B Vaccine (1 of 3 - 19+ 3-dose series) Hepatitis B Vaccine (1 of 3 - 19+ 3-dose series) [facility] Start: 12-29-1998 Pneumococcal vaccination Pneumococcal Vaccine (1 of 2 - PCV) [facility] Start: 12-29-1998 Urine microalbumin profile DTAP,TDAP,TD (1 - Tdap) [facility] Start: 12-29-1997 Adult BMI Follow Up Plan Adult BMI Follow Up Plan [facility] Start: 12-29-1997 Annual PCP Team Chronic Disease Visit Annual PCP Team Chronic Disease Visit [facility] Start: 12-29-1997 Anxiety Screening Anxiety Screening [facility] Start: 12-29-1997 BP Controlled (<130/80) BP Controlled (<130/80) [facility] Start: 12-29-1997 Depression Screening Depression Scre ening [facility] Start: 12-29-1997 HEPATITIS C SCREENING HEPATITIS C SC SHAMIKA [facility] Start: 12-29-1997 Hepatitis C screening [facility] Start: 12-29-1997 HIV SCREENING HIV SCREENING [facility] Start: 12-29-1997 HIV screening HIV Screening [facility] Start: 12-29-1994 HIV screening HIV screen [facility] Start: 1991 Adult depression screening assessment DEPRESSION SCREENING [facility] Start: 1991 Depression Screen Depression Screen [facility] Start: 12-29-1980 Varicella vaccine (1 of 2 - 2-dose childhood series) Varicella vaccine (1 of 2 - 2-dose childhood series) [facility] Start: 06-30-1980 COVID-19 Vaccine (#1) COVID-19 Vacci ne (#1) [facility] Start: 1979 Tobacco Counseling Tobacco Counselin g [facility] CARDIAC IMPLANTABLE DEVICE CHECK CARDIAC IMPLANTABLE DEVICE CHECK PACEART Routine Pacemaker reprogramming/check 06/01/2024 8:25 AM EST [facility] CARDIAC IMPLANTABLE DEVICE CHECK CARDIAC IMPLANTABLE DEVICE CHECK PACEART Routine Pacemaker reprogramming/check 11/07/2024 11:47 AM EDT [facility] End: 10-21-2025 CT Heart W contrast IV CT CARDIAC W IVCON Radiology Routine Paroxysmal atrial fibrillation (HCC) 1 Occurrences starting 09/20/2024 until 10/21/2025 [facility] Comment on above: 1 Occurrences starti ng 09/20/2024 until 10/21/2025 End: 04-26-2025 ECG COMPLETE ECG COMPLETE ECG Routine Sinus node dysfunction (HCC) 1 Occurrences starting 04/26/2024 until 04/26/2025 [facility] Work Phone: Comment on above: 1 Occurrences starti ng 04/26/2024 until 04/26/2025 End: 06-06-2025 ECG COMPLETE ECG COMPLETE ECG Routine Atrial fibrillation, unspecified type (HCC) 1 Occurrences starting 06/06/2024 until 06/06/2025 [facility] Work Phone: Comment on above: 1 Occurrences starti ng 06/06/2024 until 06/06/2025 End: 09-13-2025 ECG COMPLETE ECG COMPLETE ECG Routine Pacemaker Failure of pacemaker lead, initial encounter 1 Occurrences starting 09/13/2024 until 09/13/2025 [facility] Comment on above: 1 Occurrences starti ng 09/13/2024 until 09/13/2025 EKG 12 Lead EKG 12 Lead ECG STAT 04/15/2022 10:07 PM EDT [facility] End: 10-20-2021 Radiologic exam chest 2 views XR CHEST 2V FRONTAL/LAT Radiology Routine Cardiac pacemaker in situ 1 Occurrences starting 09/20/2020 until 10/20/2021 [facility] Comment on above: 1 Occurrences starti ng 09/20/2020 until 10/20/2021 End: 10-13-2025 XR Chest PA and Lateral XR CHEST 2V FRONTAL/LAT Radiology Routine Pacemaker Failure of pacemaker lead, initial encounter 1 Occurrences starting 09/13/2024 until 10/13/2025 [facility] Comment on above: 1 Occurrences starti ng 09/13/2024 until 10/13/2025 [facility] Immunizations Immunization Date Immunization Notes Care Provider Fa [facility] 06-30-2023 influenza virus vaccine, unspecified formulation Sheeba Villalta [facility] 06-29-2022 influenza virus vaccine, unspecified formulation Rody [facility] 04-24-2020 influenza virus vaccine, unspecified formulation Andrea Baez MD Work Phone: [facility] 12-17-2016 tetanus toxoid, reduced diphtheria toxoid, and acellular pertussis vaccine, adsorbed [facility] Work Phone: Payers Date Payer Category Payer Medicare (Managed Care) [employer] [id number] 2020 Private Health Insurance MMO SUP ERMED PPO [id number] 2020 Unknown MMO MMO SUPERMED PLUS [id number] 2020-Present PPO [id number] 2018 Medicaid 2016 Unknown 2013 Medicare 2013 Medicare [id number] 1979 Unknown [id number] 1979 Unknown [id number] 1979 Unknown [id number] 1979 Unknown [id number] 1979 Unknown [id number] 1979 Unknown [id number] 1959 Unknown [id number] Social History Date Type Detail Facility Start: 08-11-2006 End: 06-11-2006 Tobacco smoking status ORIS Current every day smoker [facility] Start: 11-09-1996 End: 06-11-2006 History of tobacco use Cigarette Smoker [facility] Start: 08-11-2006 End: 06-01-2024 Cigarettes smoked current (pack per day) - Reported [facility] Start: 08-11-2006 End: 11-07-2024 Tobacco use and exposure Current user [facility] End: 06-11-2006 History of tobacco use Chews Tobacco [facility] Start: 08-11-2006 End: 09-22-2023 Alcohol intake Current drinker of alcohol (finding) [facility] Start: 1980 Sex Assigned At Not on file [facility] Start: 03-17-2016 Tobacco smoking stat us [facility] Never smoked tobacco [employer] [facility] Work Phone: Start: 04-05-2022 End: 04-15-2022 Exposure to SARS-CoV-2 (event) Not sure [employer] [facility] Start: 12-16-2020 End: 11-07-2024 Tobacco smoking status ORIS Ex-smoker [facility] Work Phone: Start: 11-09-1996 End: 06-11-2006 History of tobacco use Current smoker [employer] Start: 12-16-2020 End: 11-07-2024 Alcoholic beverage intake Ex-drinker (finding) [facility] Start: 12-16-2020 End: 06-01-2024 Tobacco use panel [facility] National Score (1-10 0), lower number is lower risk Not on file [facility] Start: 1980 Sex assigned at Male [facility] Start: 10-07-2020 Gender identity Identifies as male gender (finding) [facility] Start: 10-07-2020 Sexual orientation Heterosexual (fin ding) [facility] Start: 08-21-2016 Alcohol Comment 1-2 times per year P [employer] Medical [employer] Procedure Code Equipment Code Equipment Origin al Text Equipment Identifier Dates [id number] [id number] Start: 11-10-2011 [id number] [id number] Start: 02-09-2006 [id number] [id number] Start: 02-09-2006 [id number] Caps urefix Novus [id number] Start: 02-18-2006 [id number] [id number] Caps urefix Novus [id number] Start: 02-18-2006 [id number] Start : 01-02-2021 Envelope Aigisrx R Medium Defibrillator Absorbable Antibacterial - [id number] Start: 11-10-2024 Envelope Aigisrx R Medium Defibrillator Absorbable Antibacterial - [id number] Start: 11-10-2024 Lead Selectsecur e 4.1fr Steroid Eluting Silicone 69cm Pacing Bipolar Screw - [id number] Start: 11-10-2024 Lead Performa 5. 3fr Steroid-Eluting 88cm Pacing Lv-1 Quadripolar Otw - [id number] Start: 11-10-2024 Pacemkr Percepta Mri Quad Df-4 - [id number] Start: 11-10-2024 Goals Date Patient Goal Desired Activity /State Personal health goal Functional Status Date Assessment Result Facility 11-11-2024 Are you deaf, or do you have serious difficulty hearing No 11/11/2024 11:27 AM Brooke Odom RN [facility] 11-11-2024 Are you blind, or do you have serious difficulty seeing, even when wearing glasses No 11/11/2024 11:27 AM Brooke Odom RN [facility] 11-11-2024 Do you have serious difficulty walking or climbing stairs No 11/11/2024 11:27 AM Brooke Odom RN [facility] 11-11-2024 Do you have difficul ty dressing or bathing No 11/11/2024 11:27 AM Brooke Odom RN [facility] 11-11-2024 Because of a physica l, mental, or emotional condition, do you have difficulty doing errands alone such as visiting a physician's office or shopping No 11/11/2024 11:27 AM Brooke Odom RN No [facility] Mental Status Date Assessment Result Facility 11-11-2024 Because of a physica l, mental, or emotional condition, do you have serious difficulty concentrating, remembering, or making decisions No 11/11/2024 11:27 AM EDT Brooke Styles RN No [facility] Clinical Notes 07-20-2023 to 11-23-2024 Telephone Encounter - Nyasia Newsome TECHNOLOGIST - 11/23/2024 9:56 AM EDTTelephone Encounter - Nyasia eNwsome TECHNOLOGIST - 11/23/2024 9:56 AM Radha Thompson MD - 11/07/2024 2:53 PM EDT Note Date & Type Note Facility 11-23-2024 Telephone encounter Note Post Implant follow up call: Date: 11/23/2024 Name: Eleazar Harrison Is your incision: Red: No Open: No Swollen: No Draining: No Steri Strips: fell off If the device is an ICD, have you received any shocks: N/A Have you received your temporary or permanent ID card: No Do you have your f/u appointment: Yes Appointments for Next 60 Days Date Time Provider Location Dept Phone 12/22/2024 1:30 PM [facility]ICE [facility] [phone] Any scheduling issues:Yes, Patient stated that he was going to follow up locally with senior mechanical estimator. He will call to cancel appointment with [facility]. Questions moving forward: No TECHNOLOGIST Isabel [facility] 11-23-2024 Miscellaneous Notes Post Implant follow up call: Date: 11/23/2024 Name: Eleazar Harrison Is your incision: Red: No Open: No Swollen: No Draining: No Steri Strips: fell off If the device is an ICD, have you received any shocks: N/A Have you received your temporary or permanent ID card: No Do you have your f/u appointment: Yes Appointments for Next 60 Days Date Time Provider Location Dept Phone 12/22/2024 1:30 PM DEVICE CLINIC [facility] Easley [phone] Any scheduling issues:Yes, Patient stated that he was going to follow up locally with senior mechanical estimator. He will call to cancel appointment with [facility]. Questions moving forward: No TAMERA HallOLOGIST documented in this encounter [facility] 11-21-2024 Note I [facility] Electrophysiology Consult Note Reason for Consultation: Follow up 11/21/24 Patient underwent a lead extraction and a new MANAGER CHINA-P placement done on 11/10/2024 at [facility] by Dr. Clint Hilton. A septal pacing lead was utilized on the right side and on the left side the patient was noted to have diaphragmatic stimulation on all the poles. However given there was sufficient safety margin the lead was taken. Patient states he feel pretty good with no more near syncope. Patient denies any cardiac complaints. Patient denies fever, chills, discharge or body aches. Steri strips fell off on 11/19/2024. Small amount of pain which is controlled with Tylenol. EKG 11/21/2024 shows a sensed ventricular pacing with a very good QRS of 114 ms Review of Systems Constitutional: Negative. 06/06/24 Pt was seen by [facility] EP and planned for lead extraction. He is awaiting call from Dr Hilton. Pt felt his HR more and I interrogated and adjusted the sensed and paced AV delay to 300ms. He felt better with ambulation after that. 04/18/24 Patient here for follow up and device check. states he's blacking out 5-6 times a day, but patient says it's more like 2-3. Episodes last 1-2 minutes at a time. C/o rash on lower extremities. His RV lead thresholds has gone up an he states he had some passing pout episodes. This has occurred irrespective of lead issues in the past. 10/12/23 Patient is on lisinopril 5 mg once daily along with BuSpar and Sinequan. last device check shows multiple episodes of high atrial rate consistent with atrial flutter or atrial tachycardia at 150 beats a minute Although the burden of which has been less than 1% and these episodes have been more than an hour as per the device data. He also underwent a treadmill stress test to see whether he is exercise-induced AV block and appeared to be the case as he was being ventricularly paced when he was exercising. no evidence of chronotropic incompetence. 07/20/23 Patient here for 6 mo follow up. . He is scheduled for routine device check next month. Still very symptomatic and blacking out multiple times a day. This occurs mainly when he is tries to stand up after he has nights rest. he also complains of shortness of breath with activity. 11/10/22 Patient has 2-3 syncopal episodes daily more towards early AM. Still has chest pain, SOB, lightheadedness, and palpitations. Device check 11/10/22: patient is paced 33% of the time in the atrium and 96% of the time in the ventricle. There are episodes of high atrial rate which is resulted in mode switch the longest of these episodes lasted 3 minutes and 30 seconds review of the EGM shows them to be of an atrial cycle length of 410 ms consistent with possible atrial tachycardia. Prior HPI: Eleazar Harrison is a 43 y.o. year old with cardiac history that started ~20yrs ago with a edgar syncope from bradycardia. This was evlauated on many occassions and attributed to be from neurocardiogenic syncope. He initially had a MDT PPM at [facility] and during gen change was changed to Biotronik to offer CLS acing options. Although his episodes of syncope which has been daily had improved, he still had fatigue. He was placed on Midodrine. Pacer check revealed Apcing at >90% and RV pacing which serial checks has revealed as progressively increasing to the point that it is >95% now. Concomitantly, the LV EF has progressively decreased. He had been eval by Dr. Sommers and discussion about MANAGER CHINA vs His lead was made but pt has mentioned there was no follow up. Pt had a stress test which revealed evidence of vasodepressor response and on exercise had initial type 1 2nd degree AVB which latr worsenned to SA exit block with lower HR on exercise than at rest. This is indicative of SND and there was no AV block on prologing AV conduction. Pt had a visit to [facility] previoiusly for planned lead extraction and upgrade to MANAGER CHINA-D. However the EF just before procedure was noted to be normal and so procedure was called of as he did not met criteria for MANAGER CHINA upgrade. He then underwent a generator change and his Biotronik PPM gen was changed for a [employer] generator so as to give a more metabiolic sensor driven rate control. Pt is doing well and no issues to note. No syncope since gen change and feels PPM is able to give HR as desired for the mot part. He needs surgery clearance for vasectomy, scheduled for next week. He has no limitations. PMH: Past Medical History: Diagnosis Date Abnormal ECG Cardiomyopathy (CMS/HCC) CHF (congestive heart failure) (CMS/HCC) Hypertension Sleep apnea Syncope PSH: Past Surgical History: Procedure Laterality Date APPENDECTOMY CARDIAC CATHETERIZATION INSERT / REPLACE / REMOVE PACEMAKER SH: Social Determinants of Health Tobacco Use: High Risk (11/21/2024) Patient History Smoking Tobacco Use: Former Smokeless Tobacco Use: Current Passive Exposure: No (more content not included)... [facility] 11-14-2024 Note HNO ID: [id number] Author: PRINCESS BERTRAND RN Service: ? Author Type: Registered Nurse Type: Progress Notes Filed: 11/14/2024 09:15 Note Text: Mailed out discharge packet. [facility] 11-14-2024 History of Present illness Narrative Mailed out discharge packet. documented in this encounter [facility] 11-11-2024 Note HNO ID: [id number] Author: DERRICK HARGROVE MD Service: Cardiovascular Medicine Author Type: Fellow Type: Plan of Care Filed: 11/11/2024 08:35 Note Text: NOTE FOR POST-OP DEVICE CHECK POD #1 from RV lead extraction and MANAGER CHINA-P upgrade - No issues overnight - Pocket without evidence of hematoma and no superficial bleeding , groins stable - CXRpending - Post implant ECG shows /BiVP - Device check shows acceptable capture thresholds, sensing thresholds and impedance - Plan for D/C today - Wound care instructions outlined in the patient's discharge instructions [facility] 11-10-2024 Note HNO ID: [id number] Author: MEE MALONE MD Service: ? 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 Indications: continuous blood pressure monitoring and blood sampling needed Staffing Fellow: Abe Nunez DO Performed by: fellow Preparation Sterility Preparation: hand hygiene performed prior to procedure, sterile gloves, drapes, and procedure tray, surgical cap used, mask used, sterile drape used during line insertion, skin prep agent completely dried prior to procedure Site Prep: Chloraprep Procedure Details Catheter Type: arterial line Catheter Size: 20 G Catheter Length: 5.25 in Micropuncture Kit Used: No Guidewire Used: Yes Guidewire Removed Intact: Yes Laterality: right Site: radial artery Ultrasound Guided: Yes Image in Chart: No Sites: potential access sites evaluated, selected vessel patent, concurrent real time ultrasound visualization of vascular needle entry Vessel: target vessel identified and guidewire advanced into vessel Line Secured: tape and occlusive biodressing Events Events: patient tolerated procedure well with no complications Comments X1 attempt, dynamic use of ultrasound, no through and through SIGNATURE: Abe Nunez DO PATIENT NAME: Eleazar Harrison DATE: November 10, 2024 TIME: 4:43 PM CSN: [id number] I was present and supervised the procedure. Mee Malone MD [facility] 11-10-2024 Note HNO ID: [id number] Author: ABE NUNEZ DO Service: ? Author Type: Fellow Type: Anesthesia Procedure Notes Filed: 11/10/2024 16:39 Note Text: ANESTHESIOLOGY PROCEDURE NOTE Airway General Information Procedure Start Time/Medication Administration: 11/10/2024 3:25 PM Procedure End Time: 11/10/2024 3:26 PM Patient location during procedure: OR Timeout Performed Pre-procedure: timeout performed Consent Obtained: Yes Patient identity confirmed: arm band, care seam steamer and patient Staffing Anesthesiologist: Mee Malone MD Fellow: Abe Nunez DO Performed by: fellow and anesthesiologist Indications and Patient Condition Indications for airway management: anesthesia Preoxygenated: yes anesthesia circuit Patient position: sniffing Method: asleep Difficult Mask: No Final Airway Details Final airway type: endotracheal airway Final Endotracheal Airway: ETT Cuffed: yes Successful intubation technique: video laryngoscopy Devices used: intubating stylet and Shanks Endotracheal tube insertion site: oral Blade: Jorge Blade size: #4 ETT size (mm): 7.5 Measured from: teeth Measurement (cm): 24 Placement verified by: capnometry Cormack-Lehane Classification: grade I - full view of glottis Number of attempts at approach: 1 Airway trauma: none. Airway not difficult SIGNATURE: Abe Nunez DO PATIENT NAME: Eleazar Harrison DATE: November 10, 2024 TIME: 4:39 PM CSN: [id number] [facility] 11-09-2024 Note HNO ID: [id number] Author: INGRID SCHUMACHER RN Service: ? Author Type: Registered Nurse Type: Progress Notes Filed: 11/09/2024 11:17 Note Text: THE FOLLOWING WAS EVALUATED Motivation To Learn: Interested Family/Significant Other Support: Unable to assess - Family not present Cognitive Ability: Alert and oriented Patient Learns Best By: Verbal Instruction The Following Influencing Factors Were Barriers To This Education Session: None The Following Physical Limitations Were Barriers To This Education Session: None Instruction Provided To: Patient Procedure: Pacemaker Extraction and Reimplant Pre-procedure information reviewed: Patient ID verified Procedure verified Physician verified Explanation of procedure Sedation level during procedure MD medication instructions from EP lab request: N/a Travel instructions/restrictions Scheduling information Possible same day discharge versus overnight hospital stay Check out time Family waiting area Physician contact with family after procedure Post Procedure Expectations reviewed: Inpatient hospital stay Post procedure antiarrhythmics and anticoagulation will be discussed with Physician, nurse practitioner or Physician assistant maintenance manager upon discharge Instructions for transmitting EKG to [facility] 3 month follow up instructions Contact number for information and questions Patient Evaluation: Verbalizes understanding Follow Up Plan: Follow up as directed by MD. Supplemental Material Given: Written Material Patient education regarding Radiation Exposure. Instructed By Ingrid Schumacher RN. In Department of CARDIOLOGY. [facility] 11-09-2024 History of Present illness Narrative THE FOLLOWING WAS EVALUATED Motivation To Learn: Interested Family/Significant Other Support: Unable to assess - Family not present Cognitive Ability: Alert and oriented Patient Learns Best By: Verbal Instruction The Following Influencing Factors Were Barriers To This Education Session: None The Following Physical Limitations Were Barriers To This Education Session: None Instruction Provided To: Patient Procedure: Pacemaker Extraction and Reimplant Pre-procedure information reviewed: Patient ID verified Procedure verified Physician verified Explanation of procedure Sedation level during procedure MD medication instructions from EP lab request: N/a Travel instructions/restrictions Scheduling information Possible same day discharge versus overnight hospital stay Check out time Family waiting area Physician contact with family after procedure Post Procedure Expectations reviewed: Inpatient hospital stay Post procedure antiarrhythmics and anticoagulation will be discussed with Physician, nurse practitioner or Physician assistant maintenance manager upon discharge Instructions for transmitting EKG to [facility] 3 month follow up instructions Contact number for information and questions Patient Evaluation: Verbalizes understanding Follow Up Plan: Follow up as directed by MD. Supplemental Material Given: Written Material Patient education regarding Radiation Exposure. Instructed By Ingrid Schumacher RN. In Department of CARDIOLOGY. documented in this encounter [facility] 11-09-2024 Note Education (EPSMN) ELEAZAR HARRISON I ([id number]) 1980 M Date Time Provider Department 11/09/24 [facility] EPSMN Reason for Visit: Patient Education [91] Cmt: EPS - PPM Extract/ MANAGER CHINA-P During your visit today, we recorded the following information about you: Allergies As of Date: 11/09/2024 (No Known Allergies) Date Reviewed: 11/07/2024 Reviewed by: Amie Little, KINSEY - Fully Assessed Prescriptions as of 11/09/2024 - busPIRone (BUSPAR) 15 mg tablet Take 1 tablet by mouth twice daily. - sertraline (ZOLOFT) 100 mg tablet Take 100 mg by mouth once daily. - lisinopril (ZESTRIL, PRINIVIL) 5 mg tablet Take 5 mg by mouth once daily. - doxepin capsule 50 mg Take 50 mg by mouth daily at bedtime. - cetirizine (ZYRTEC) 10 mg tablet Take 10 mg by mouth once daily. - ADVIL 200 MG ORAL CAP as necessary Encounter Status:Closed by INGRID SCHUMACHER on 11/09/24 [facility] 11-07-2024 Note HNO ID: [id number] Author: RADHA HAMMOND MD Service: ? Author Type: Resident Type: Progress Notes Filed: 11/07/2024 15:37 Note Text: Cardiothoracic Anesthesiology Preoperative Assessment Service Date: 11/07/2024 Service Time: 2:55 PM Primary Care Physician: Joanna Yee CNP, NURSE COORDINATOR Subjective Patient Entered Data: 10/31/2024 Cardiothoracic Surgery Pre-Op Questionnaire Previous anesthesia problems No Family history anesthesia problems No Blood consent Yes Esophageal history None Implanted devices Yes Select implanted devices Pacemaker or Defibrillator History difficult airway No Airway surgery No Ongoing pain issues No Heparin intolerance No Daily alcohol use No Illicit drug use No Scheduled procedure: Lead removal/Replacement Scheduled date: 11/10/2024 HPI: Eleazar Harrison is a very pleasant male patient with past medical history significant for retention, IBS, neurocardiogenic syncope, high degree AV block status post dual-chamber permanent pacemaker in 2009, nonischemic cardiomyopathy with an ejection fraction most recently 45%. Complete heart block status post dual-chamber permanent pacemaker: He has evidence of RV lead malfunction with elevated capture thresholds and some pocket stimulation. He is here for pre-operative evaluation prior to replacement of that lead. Patient instructed to: - Follow surgical instruction regarding anticoagulation/ASA therapy - Follow additional instructions regarding all other medications as discussed and detailed on medication guideline information sheet given to patient at visit. Review no known heparin intolerance not taking anticoagulant/antiplatelet medication no non-cardiac IEDs present no known esophageal disorders blood transfusion consented - COVID-19 Immunization Status Current Care Gaps Covid-19 Vaccine ( season) Overdue since 03/12/2024 06/24/2021 Imm Admin: COVID-19 original vaccine, age 12+ yr, monovalent ([employer] - PURPLE TOP) 11/23/2020 Imm Admin: COVID-19 original vaccine, full dose, monovalent (MODERNA) 10/17/2020 Imm Admin: COVID-19 original vaccine, full dose, monovalent (MODERNA) Only the first 3 history entries have been loaded, but more history exists. The patient has the following: ACTIVE PROBLEM LIST Other Specified General Medical Examination Orthostatic Hypotension Essential Hypertension, Benign Pacemaker Neurocardiogenic Syncope Obesity, Class II, Bmi 35-39.9 Obesity, Class I, Bmi 30-34.9 PAST MEDICAL HISTORY Diagnosis Date Irritable bowel syndrome Irritable bowel Neurocardiogenic syncope Pacemaker 02/2006 dual chamber; generator change and his [employer] PPM gen was changed for a Collusion generator to give a more metabiolic sensor driven rate control 2020. Sleep apnea CPAP Unspecified essential hypertension PAST SURGICAL HISTORY Procedure Laterality Date APPENDECTOMY age 18 FAMILY HISTORY Problem Relation Age of Onset Hypertension Mother Asthma Mother Ischemic Heart Disease Mother Hypertension Father Pancreatitis Father Hypertension Maternal Grandmother Hypertension Maternal Grandfather Ischemic Heart Disease Maternal Grandfather Hypertension Paternal Grandmother other (malignant neoplastic disease) Paternal Grandmother Hypertension Paternal Grandfather Ischemic Heart Disease Paternal Grandfather Stroke Paternal Grandfather Liver Cancer Son 0 s/p liver transplant x 2 (diagnosed age 6 months) Social History Tobacco Use Smoking status: Former Current packs/day: 0.00 Average packs/day: 1 pack/day for 7.0 years (7.0 ttl pk-yrs) Types: Cigarettes Start date: 06/11/1999 Quit date: 06/11/2006 Years since quittin.4 Smokeless tobacco: Current Types: Chew Vaping Use Vaping status: Never Used Substance Use Topics Alcohol use: Not Currently Drug use: Not Currently Prior to Admission medications as of 11/07/24 1140 Medication Sig Last Dose Taking busPIRone (BUSPAR) 15 mg tablet Take 1 tablet by mouth twice daily. sertraline (ZOLOFT) 100 mg tablet Take 100 mg by mouth once daily. lisinopril (ZESTRIL, PRINIVIL) 5 mg tablet Take 5 mg by mouth once daily. doxepin capsule 50 mg Take 50 mg by mouth daily at bedtime. cetirizine (ZYRTEC) 10 mg tablet Take 10 mg by mouth once daily. ADVIL 200 MG ORAL CAP as necessary No medication comments found. ALLERGIES No Known Allergies Objective Pain Assessment: Vitals: There were no vitals taken for this visit. Diagnostic tests reviewed for today's visit: Lab Value Units Date High Low HB No results within date range. HCT No results within date range. WBC No results within date range. PLT No results within date range. NA No results within date range. K No results within date range. GLUC No results within date range. BUN No results within date range. CREAT No results within date range. PTSEC 10.9 sec 11/07/2024 13.0 9.7 (more content not included)... [facility] 11-07-2024 History of Present illness Narrative Cardiothoracic Anesthesiology Preoperative Assessment Service Date: 11/07/2024 Service Time: 2:55 PM Primary Care Physician: Joanna Yee CNP, NURSE COORDINATOR Subjective Patient Entered Data: 10/31/2024 Cardiothoracic Surgery Pre-Op Questionnaire Previous anesthesia problems No Family history anesthesia problems No Blood consent Yes Esophageal history None Implanted devices Yes Select implanted devices Pacemaker or Defibrillator History difficult airway No Airway surgery No Ongoing pain issues No Heparin intolerance No Daily alcohol use No Illicit drug use No Scheduled procedure: Lead removal/Replacement Scheduled date: 11/10/2024 HPI: Eleazar Harrison is a very pleasant male patient with past medical history significant for retention, IBS, neurocardiogenic syncope, high degree AV block status post dual-chamber permanent pacemaker in 2009, nonischemic cardiomyopathy with an ejection fraction most recently 45%. Complete heart block status post dual-chamber permanent pacemaker: He has evidence of RV lead malfunction with elevated capture thresholds and some pocket stimulation. He is here for pre-operative evaluation prior to replacement of that lead. Patient instructed to: - Follow surgical instruction regarding anticoagulation/ASA therapy - Follow additional instructions regarding all other medications as discussed and detailed on medication guideline information sheet given to patient at visit. Review no known heparin intolerance not taking anticoagulant/antiplatelet medication no non-cardiac IEDs present no known esophageal disorders blood transfusion consented - COVID-19 Immunization Status Current Care Gaps Covid-19 Vaccine ( season) Overdue since 03/12/2024 06/24/2021 Imm Admin: COVID-19 original vaccine, age 12+ yr, monovalent ([employer] - PURPLE TOP) 11/23/2020 Imm Admin: COVID-19 original vaccine, full dose, monovalent (MODERNA) 10/17/2020 Imm Admin: COVID-19 original vaccine, full dose, monovalent (MODERNA) Only the first 3 history entries have been loaded, but more history exists. The patient has the following: ACTIVE PROBLEM LIST Other Specified General Medical Examination Orthostatic Hypotension Essential Hypertension, Benign Pacemaker Neurocardiogenic Syncope Obesity, Class II, Bmi 35-39.9 Obesity, Class I, Bmi 30-34.9 PAST MEDICAL HISTORY Diagnosis Date Irritable bowel syndrome Irritable bowel Neurocardiogenic syncope Pacemaker 02/2006 dual chamber; generator change and his [employer] PPM gen was changed for a Collusion generator to give a more metabiolic sensor driven rate control 2020. Sleep apnea CPAP Unspecified essential hypertension PAST SURGICAL HISTORY Procedure Laterality Date APPENDECTOMY age 18 FAMILY HISTORY Problem Relation Age of Onset Hypertension Mother Asthma Mother Ischemic Heart Disease Mother Hypertension Father Pancreatitis Father Hypertension Maternal Grandmother Hypertension Maternal Grandfather Ischemic Heart Disease Maternal Grandfather Hypertension Paternal Grandmother other (malignant neoplastic disease) Paternal Grandmother Hypertension Paternal Grandfather Ischemic Heart Disease Paternal Grandfather Stroke Paternal Grandfather Liver Cancer Son 0 s/p liver transplant x 2 (diagnosed age 6 months) Social History Tobacco Use Smoking status: Former Current packs/day: 0.00 Average packs/day: 1 pack/day for 7.0 years (7.0 ttl pk-yrs) Types: Cigarettes Start date: 06/11/1999 Quit date: 06/11/2006 Years since quittin.4 Smokeless tobacco: Current Types: Chew Vaping Use Vaping status: Never Used Substance Use Topics Alcohol use: Not Currently Drug use: Not Currently Prior to Admission medications as of 11/07/24 1140 Medication Sig Last Dose Taking busPIRone (BUSPAR) 15 mg tablet Take 1 tablet by mouth twice daily. sertraline (ZOLOFT) 100 mg tablet Take 100 mg by mouth once daily. lisinopril (ZESTRIL, PRINIVIL) 5 mg tablet Take 5 mg by mouth once daily. doxepin capsule 50 mg Take 50 mg by mouth daily at bedtime. cetirizine (ZYRTEC) 10 mg tablet Take 10 mg by mouth once daily. ADVIL 200 MG ORAL CAP as necessary No medication comments found. ALLERGIES No Known Allergies Objective Pain Assessment: Vitals: There were no vitals taken for this visit. Diagnostic tests reviewed for today's visit: Lab Value Units Date High Low HB No results within date range. HCT No results within date range. WBC No results within date range. PLT No results within date range. NA No results within date range. K No results within date range. GLUC No results within date range. BUN No results within date range. CREAT No results within date range. PTSEC 10.9 sec 11/07/2024 13.0 9.7 INR 1.0 no uni* 11/07/2024 1.3 0.9 APTT No results within date range. ALT No results within date range. AST No results within date range. TBILI No results within date range. TSH No results within date range. Lab Value Units Date High Low HCGQT No results within date range. UHCG No results within date range. HCG, BODY* No results within date range. Lab Value Units Date High Low ABORHD No results within date range. ABSCREEN No results within date range. Hemoglobin A1C (%) Date Value 10/01/2005 4.9 Recent Results (from the past 8760 hours) ECG COMPLETE Collection Time: 11/07/24 10:48 AM Impression SINUS TACHYCARDIA [id number] SYNDROME ABNORMAL ECG Assessment No problem-specific Assessment & Plan notes found for this encounter. ANESTHESIA FINDINGS: Intubation History: No history of difficult intubation Significant Anesthesia Considerations: Airway History: No history of difficult airway Prepared for Surgery: optimally prepared for surgery. The Following Tests/Procedures Have Been Initiated: No orders of the defined types were placed in this encounter. ASA Class: 4 Planned Anesthetic: general I - PHYSICAL EVALUATION AIRWAY Patient intubated: No. Tracheostomy tube not present Mallampati: II. TM distance: >3 FB. Neck ROM: full ROM without neurological symptoms. Mouth opening: adequate. Short neck: no. Thick neck: no DENTAL Dental findings: teeth intact. II - ANESTHESIA PLAN ASA Score: 4 Anesthetic Plan: general Airway type: ETT Beta Idris Monitoring Plan Post Procedure Analgesic Plan Informed Consent Anesthetic risks, benefits, alternatives, personnel and consent discussed: yes. Patient / Responsible Libertarian agrees to proceed: yes Patient / Surrogate agrees to blood products: Yes Instructions Given to Patient: Instructions located in the after visit summary. Patient given verbal and written preop instructions and voices comprehension and compliance. Signature: Radha Hammond MD Patient Name: Eleazar Harrison Date: November 07, 2024 Time: 2:55 PM Pager/Contact #: documented in this encounter [facility] 11-07-2024 History of Present illness Narrative Radiology Service Progress Note PATIENT NAME: Eleazar Harrison DATE OF SERVICE: November 07, 2024 TIME: 11:06 AM PATIENT IDENTITY VERIFICATION COMPLETED USING TWO (2) IDENTIFIERS: Name and Date of confirmed by patient verbally. FALL SCREENING: Has the patient had 2 falls in the last year or 1 fall with injury or currently using an Ambulatory Assistive Device (Walker, Cane, Wheelchair, Crutches, etc.)? No PATIENT GENDER DATA: Assigned male at PATIENT RELEVANT IMPLANT DATA REVIEWED: Not Applicable PATIENT PRESENTS WITH AN IMPLANTABLE OR ATTACHED LOAN OFFICER: No RADIOLOGY DEPARTMENT: General X-ray: Exam(s) Completed: Chest X-Ray PERIPHERAL IV DATA: Not applicable SIGNED BY: RT Brandon (R) November 07, 2024 11:06 AM documented in this encounter [facility] 11-07-2024 Note HNO ID: [id number] Author: TRINA GONCALVES RT (R) Service: Radiology Author Type: Technologist Type: Progress Notes Filed: 11/07/2024 11:06 Note Text: Radiology Service Progress Note PATIENT NAME: Eleazar Harrison DATE OF SERVICE: November 07, 2024 TIME: 11:06 AM PATIENT IDENTITY VERIFICATION COMPLETED USING TWO (2) IDENTIFIERS: Name and Date of confirmed by patient verbally. FALL SCREENING: Has the patient had 2 falls in the last year or 1 fall with injury or currently using an Ambulatory Assistive Device (Walker, Cane, Wheelchair, Crutches, etc.)? No PATIENT GENDER DATA: Assigned male at PATIENT RELEVANT IMPLANT DATA REVIEWED: Not Applicable PATIENT PRESENTS WITH AN IMPLANTABLE OR ATTACHED LOAN OFFICER: No RADIOLOGY DEPARTMENT: General X-ray: Exam(s) Completed: Chest X-Ray PERIPHERAL IV DATA: Not applicable SIGNED BY: DIANNE Brandon) November 07, 2024 11:06 AM [facility] 11-07-2024 Note HNO ID: [id number] Author: CLINT HILTON MD Service: ? Author Type: Physician Type: Progress Notes Filed: 11/07/2024 12:44 Note Text: [facility] [place] [facility] Department of Cardiovascular Medicine SECTION OF CARDIAC PACING and ELECTROPHYSIOLOGY OUTPATIENT VISIT DATE November 07, 2024 OUTPATIENT VISIT TYPE Established CHIEF COMPLAINT: pre op extraction IMPRESSION/PLAN: Eleazar Harrison is a very pleasant male patient with past medical history significant for retention, IBS, neurocardiogenic syncope, high degree AV block status post dual-chamber permanent pacemaker in 2009, nonischemic cardiomyopathy with an ejection fraction most recently 45%. Complete heart block status post dual-chamber permanent pacemaker: He has evidence of RV lead malfunction with elevated capture thresholds and some pocket stimulation. We will plan for replacement of that lead. We discussed options of abandoning versus extracting the malfunctioning lead. Given his young age, I favor extraction to avoid potential lead related complications in the future. We reviewed the risk, benefits and alternatives to lead extraction. Patient understands and agrees. Nonischemic cardiomyopathy: He has an ejection fraction most recently of 45% (outside echo from August 2023) in the setting of 99% RV pacing. As we will be exchanging his RV lead, I recommend upgrade to biventricular pacing with addition of a CS lead and possible addition of left bundle branch pacing. I reviewed with the patient the risk, benefits and alternatives to addition of these leads. He understands and agrees to proceed. Plan: Extraction of malfunctioning RV lead with upgrade to biventricular pacemaker +/- LOT-MANAGER [employer] HPI: He has a past history of HTN, IBS, neurocardiogenic syncope s/p dual chamber pacemaker insertion 02/2006 with generator change out 2011. He had developed prolonged ND interval and AV block and now is paced in the RV over 80% of the time despite prolonged AV intervals. He developed the need to RV pace in 2017 and developed fatigue and reduced LVEF (30-35%) per echo done at outside hospital in April 2020. The plan was to proceed with extraction of his current [employer] sytem (all) and implanting MDT MANAGER [employer]-D. However, he had an echo which showed EF 55%, so procedure was cancelled. He then underwent a generator change and his [employer] PPM gen was changed for a [employer] generator to give a more metabiolic sensor driven rate control 2020. He was last seen virtually 07/26/24, has evidence of RV lead malfunction with increasing capture thresholds and some pocket stimulation, atrial lead appears to be working well, EF down to about 45% in the setting of chronic RV pacing. He is scheduled for upgrade of his device to biventricular pacemaker given NYHA class II-III symptoms, high percentage of RV pacing, and depressed ejection fraction He continues to have episodes of brief syncope daily, 6-7x per day, he takes his time changing positions, often hitting his face and head. He has not sustained any injuries with the falls from the syncopal events, but he usually is able to sit or lay down when he feels one coming on. He endorses fatigue, shortness of breath with exertion, and occasional lightheadedness.. He sometimes has irregular palpitations with exertion. He has sleep apnea and wears CPAP. REVIEW OF SYSTEMS Negative in detail except as outlined in the HPI. PHYSICIAL EXAM: BP 116/80 Pulse 110 Ht 180.3 cm (5' 11 ) Wt 109.3 kg (241 lb) BMI 33.61 kg/m? GEN: Awake, alert, no apparent distress HEAD: Normocephalic, atraumatic EYES: Anicteric sclera. Extraocular movements are intact. LUNGS: Non-labored breathing, normal chest wall movement HEART: Regular rhythm, normal rate ABDOMEN: Non-distended EXTREMITIES: No cyanosis clubbing or edema. MUSCULOSKELETAL: No gross deformities. SKIN: No rashes DATA: (The following studies were reviewed personally) EKG TODAY PAST MEDICAL HISTORY Diagnosis Date Irritable bowel syndrome Irritable bowel Neurocardiogenic syncope Pacemaker 02/2006 dual chamber; generator change and his [employer] PPM gen was changed for a [employer] generator to give a more metabiolic sensor driven rate control 2020. Sleep apnea CPAP Unspecified essential hypertension Current Outpatient Medications Medication Sig busPIRone (BUSPAR) 15 mg tablet Take 1 tablet by mouth twice daily. sertraline (ZOLOFT) 100 mg tablet Take 100 mg by mouth once daily. lisinopril (ZESTRIL, PRINIVIL) 5 mg tablet Take 5 mg by mouth once daily. doxepin capsule 50 mg Take 50 mg by mouth daily at bedtime. cetirizine (ZYRTEC) 10 mg tablet Take 10 mg by mouth once daily. ADVIL 200 MG ORAL CAP as necessary No current facility-administered medications for this visit. ALLERGIES: ALLERGIES No Known Allergies Social History Tobacco Use Smoking statu (more content not included)... [facility] 11-07-2024 History of Present illness Narrative Images from the original note were not included. [facility] [place] [facility] Department of Cardiovascular Medicine SECTION OF CARDIAC PACING and ELECTROPHYSIOLOGY OUTPATIENT VISIT DATE November 07, 2024 OUTPATIENT VISIT TYPE Established CHIEF COMPLAINT: pre op extraction IMPRESSION/PLAN: Eleazar Harrison is a very pleasant male patient with past medical history significant for retention, IBS, neurocardiogenic syncope, high degree AV block status post dual-chamber permanent pacemaker in 2009, nonischemic cardiomyopathy with an ejection fraction most recently 45%. Complete heart block status post dual-chamber permanent pacemaker: He has evidence of RV lead malfunction with elevated capture thresholds and some pocket stimulation. We will plan for replacement of that lead. We discussed options of abandoning versus extracting the malfunctioning lead. Given his young age, I favor extraction to avoid potential lead related complications in the future. We reviewed the risk, benefits and alternatives to lead extraction. Patient understands and agrees. Nonischemic cardiomyopathy: He has an ejection fraction most recently of 45% (outside echo from August 2023) in the setting of 99% RV pacing. As we will be exchanging his RV lead, I recommend upgrade to biventricular pacing with addition of a CS lead and possible addition of left bundle branch pacing. I reviewed with the patient the risk, benefits and alternatives to addition of these leads. He understands and agrees to proceed. Plan: Extraction of malfunctioning RV lead with upgrade to biventricular pacemaker +/- LOT-MA[employer]GER [employer] HPI: He has a past history of HTN, IBS, neurocardiogenic syncope s/p dual chamber pacemaker insertion 02/2006 with generator change out 2011. He had developed prolonged ND interval and AV block and now is paced in the RV over 80% of the time despite prolonged AV intervals. He developed the need to RV pace in 2017 and developed fatigue and reduced LVEF (30-35%) per echo done at outside hospital in April 2020. The plan was to proceed with extraction of his current [employer] sytem (all) and implanting MDT MANAGER [employer]-D. However, he had an echo which showed EF 55%, so procedure was cancelled. He then underwent a generator change and his [employer] PPM gen was changed for a [employer] generator to give a more metabiolic sensor driven rate control 2020. He was last seen virtually 07/26/24, has evidence of RV lead malfunction with increasing capture thresholds and some pocket stimulation, atrial lead appears to be working well, EF down to about 45% in the setting of chronic RV pacing. He is scheduled for upgrade of his device to biventricular pacemaker given NYHA class II-III symptoms, high percentage of RV pacing, and depressed ejection fraction He continues to have episodes of brief syncope daily, 6-7x per day, he takes his time changing positions, often hitting his face and head. He has not sustained any injuries with the falls from the syncopal events, but he usually is able to sit or lay down when he feels one coming on. He endorses fatigue, shortness of breath with exertion, and occasional lightheadedness.. He sometimes has irregular palpitations with exertion. He has sleep apnea and wears CPAP. REVIEW OF SYSTEMS Negative in detail except as outlined in the HPI. PHYSICIAL EXAM: BP 116/80 Pulse 110 Ht 180.3 cm (5' 11 ) Wt 109.3 kg (241 lb) BMI 33.61 kg/m GEN: Awake, alert, no apparent distress HEAD: Normocephalic, atraumatic EYES: Anicteric sclera. Extraocular movements are intact. LUNGS: Non-labored breathing, normal chest wall movement HEART: Regular rhythm, normal rate ABDOMEN: Non-distended EXTREMITIES: No cyanosis clubbing or edema. MUSCULOSKELETAL: No gross deformities. SKIN: No rashes DATA: (The following studies were reviewed personally) EKG TODAY PAST MEDICAL HISTORY Diagnosis Date Irritable bowel syndrome Irritable bowel Neurocardiogenic syncope Pacemaker 02/2006 dual chamber; generator change and his [employer] PPM gen was changed for a [employer] generator to give a more metabiolic sensor driven rate control 2020. Sleep apnea CPAP Unspecified essential hypertension Current Outpatient Medications Medication Sig busPIRone (BUSPAR) 15 mg tablet Take 1 tablet by mouth twice daily. sertraline (ZOLOFT) 100 mg tablet Take 100 mg by mouth once daily. lisinopril (ZESTRIL, PRINIVIL) 5 mg tablet Take 5 mg by mouth once daily. doxepin capsule 50 mg Take 50 mg by mouth daily at bedtime. cetirizine (ZYRTEC) 10 mg tablet Take 10 mg by mouth once daily. ADVIL 200 MG ORAL CAP as necessary No current facility-administered medications for this visit. ALLERGIES: ALLERGIES No Known Allergies Social History Tobacco Use Smoking status: Former Current packs/day: 0.00 Average packs/day: 1 pack/day for 7.0 years (7.0 ttl pk-yrs) Types: Cigarettes Start date: 06/11/1999 Quit date: 06/11/2006 Years since quittin.4 Smokeless tobacco: Current Types: Chew Vaping Use Vaping status: Never Used Substance Use Topics Alcohol use: Not Currently Drug use: Not Currently FAMILY HISTORY Problem Relation Age of Onset Hypertension Mother Asthma Mother Ischemic Heart Disease Mother Hypertension Father Pancreatitis Father Hypertension Maternal Grandmother Hypertension Maternal Grandfather Ischemic Heart Disease Maternal Grandfather Hypertension Paternal Grandmother other (malignant neoplastic disease) Paternal Grandmother Hypertension Paternal Grandfather Ischemic Heart Disease Paternal Grandfather Stroke Paternal Grandfather Liver Cancer Son 0 s/p liver transplant x 2 (diagnosed age 6 months) I reviewed old records, obtained relevant HPI and PMH from the pt, examined the patient and created the above report. This note was created using computerized pastry chef software and may therefore include some pastry chef errors including errors in gender and inappropriate words or phrases. I reviewed old records, obtained relevant HPI and PMH from the pt, examined the patient and created the above report. Amie Little RN November 07, 2024 Note to: Virgilio Baez Primary Care Physician: Joanna Yee, [facility] [address] [place] [address] Andrea Baez MD EP [facility] documented in this encounter [facility] 11-07-2024 History of Present illness Narrative Radiology Service Progress Note DATE OF SERVICE: November 07, 2024 TIME: 8:56 AM PATIENT WEIGHT: 235 LBS PATIENT IDENTITY VERIFICATION COMPLETED USING TWO (2) STANDARD IDENTIFIERS: Name and Date of confirmed by patient verbally and Name and Date of confirmed by identification band. FALL SCREENING: Has the patient had 2 falls in the last year or 1 fall with injury or currently using an Ambulatory Assistive Device (Walker, Cane, Wheelchair, Crutches, etc.)? No PATIENT GENDER DATA: Assigned male at ALLERGIES: Reviewed and unchanged CONTRAST ALLERGY: No EXAM: CT -CONTRAST INDUCED NEPHROPATHY RISK FACTORS: Not applicable CREATININE: Creatinine Date Value Ref Range Status 11/12/2020 0.96 0.73 - 1.22 mg/dL Final 08/11/2006 0.9 0.7 - 1.4 mg/dL Final 02/18/2006 0.9 0.7 - 1.4 mg/dL Final eGFR-All Other Races Date Value Ref Range Status 11/12/2020 >60 . Final Comment: eGFR (Estimated GFR) Units of measure: mL/min/1.73 meters squared eGFR is derived from the reexpressed MDRD Study equation using the following parameters: serum creatinine, age, gender and race. The creatinine assay has been calibrated to be traceable to IDMS. An eGFR <60 mL/min/1.73m2 for >3 months is consistent with chronic kidney disease. Refer to KDOQI guidelines for clinical interpretation. In patients with unstable renal function, e.g. those with acute kidney injury, the eGFR may not accurately reflect actual GFR. eGFR- Date Value Ref Range Status 11/12/2020 >60 Final P.O.C.T. RESULTS: N/A November 07, 2024 TREATMENT: N/A IV SITE: Ambulatory: A peripheral IV was started in the Right antecubital site with a Angio cath: 20 gauge. and A Saline lock was inserted per protocol IV SITE APPEARANCE: Clean,Dry and Intact SIGNATURE: Silvestre Kaufman RN PATIENT NAME: Eleazar Harrison DATE: November 07, 2024 TIME: 8:56 AM Radiology Service Progress Note PATIENT NAME: Eleazar Harrison DATE OF SERVICE: November 07, 2024 TIME: 9:06 AM PATIENT IDENTITY VERIFICATION COMPLETED USING TWO (2) IDENTIFIERS: Name and Date of confirmed by patient verbally and Name and Date of confirmed by identification band. FALL SCREENING: Has the patient had 2 falls in the last year or 1 fall with injury or currently using an Ambulatory Assistive Device (Walker, Cane, Wheelchair, Crutches, etc.)? No PATIENT GENDER DATA: Assigned male at PATIENT RELEVANT IMPLANT DATA REVIEWED: Not Applicable PATIENT PRESENTS WITH AN IMPLANTABLE OR ATTACHED LOAN OFFICER: No RADIOLOGY DEPARTMENT: CT; Exam(s) Completed: Cardiac PERIPHERAL IV DATA: Site assessment: Clean,Dry and Intact, Site disposition Discontinued SIGNED BY: RT Rosi(Ashish) November 07, 2024 9:06 AM documented in this encounter [facility] 11-07-2024 Note HNO ID: [id number] Author: JESSENIA KOENIG RT(R) Service: Radiology Author Type: Technologist Type: Progress Notes Filed: 11/07/2024 09:16 Note Text: Radiology Service Progress Note PATIENT NAME: Eleazar Harrison DATE OF SERVICE: November 07, 2024 TIME: 9:06 AM PATIENT IDENTITY VERIFICATION COMPLETED USING TWO (2) IDENTIFIERS: Name and Date of confirmed by patient verbally and Name and Date of confirmed by identification band. FALL SCREENING: Has the patient had 2 falls in the last year or 1 fall with injury or currently using an Ambulatory Assistive Device (Walker, Cane, Wheelchair, Crutches, etc.)? No PATIENT GENDER DATA: Assigned male at PATIENT RELEVANT IMPLANT DATA REVIEWED: Not Applicable PATIENT PRESENTS WITH AN IMPLANTABLE OR ATTACHED LOAN OFFICER: No RADIOLOGY DEPARTMENT: CT; Exam(s) Completed: Cardiac PERIPHERAL IV DATA: Site assessment: Clean,Dry and Intact, Site disposition Discontinued SIGNED BY: RT Rosi(Ashish) November 07, 2024 9:06 AM [facility] 11-07-2024 Note HNO ID: [id number] Author: SILVESTRE KAUFMAN RN Service: Nursing Author Type: Registered Nurse Type: Progress Notes Filed: 11/07/2024 09:00 Note Text: Radiology Service Progress Note DATE OF SERVICE: November 07, 2024 TIME: 8:56 AM PATIENT WEIGHT: 235 LBS PATIENT IDENTITY VERIFICATION COMPLETED USING TWO (2) STANDARD IDENTIFIERS: Name and Date of confirmed by patient verbally and Name and Date of confirmed by identification band. FALL SCREENING: Has the patient had 2 falls in the last year or 1 fall with injury or currently using an Ambulatory Assistive Device (Walker, Cane, Wheelchair, Crutches, etc.)? No PATIENT GENDER DATA: Assigned male at ALLERGIES: Reviewed and unchanged CONTRAST ALLERGY: No EXAM: CT -CONTRAST INDUCED NEPHROPATHY RISK FACTORS: Not applicable CREATININE: Creatinine Date Value Ref Range Status 11/12/2020 0.96 0.73 - 1.22 mg/dL Final 08/11/2006 0.9 0.7 - 1.4 mg/dL Final 02/18/2006 0.9 0.7 - 1.4 mg/dL Final eGFR-All Other Races Date Value Ref Range Status 11/12/2020 >60 . Final Comment: eGFR (Estimated GFR) Units of measure: mL/min/1.73 meters squared eGFR is derived from the reexpressed MDRD Study equation using the following parameters: serum creatinine, age, gender and race. The creatinine assay has been calibrated to be traceable to IDMS. An eGFR <60 mL/min/1.73m2 for >3 months is consistent with chronic kidney disease. Refer to KDOQI guidelines for clinical interpretation. In patients with unstable renal function, e.g. those with acute kidney injury, the eGFR may not accurately reflect actual GFR. eGFR- Date Value Ref Range Status 11/12/2020 >60 Final P.O.C.T. RESULTS: N/A November 07, 2024 TREATMENT: N/A IV SITE: Ambulatory: A peripheral IV was started in the Right antecubital site with a Angio cath: 20 gauge. and A Saline lock was inserted per protocol IV SITE APPEARANCE: Clean,Dry and Intact SIGNATURE: Silvestre Kaufman RN PATIENT NAME: Eleazar Harrison DATE: November 07, 2024 TIME: 8:56 AM [facility] 08-15-2024 Telephone encounter Note The date of 11-10-[address] Hilton offered & accepted by patient. Needs all OR 79 appointments scheduled as per protocol the week before date. [facility] 08-15-2024 Telephone encounter Note ----- Message from Clint Hilton MD sent at 07/26/2024 10:27 AM EST ----- Regarding: Extraction Request EP LAB OR EXTRACTION EPS Lab REQUEST: OR 79 Lead Extraction PATIENT NAME: Eleazar Harrison REQUESTING PHYSICIAN: Clint Hilton IV, M.D. PROCEDURE PHYSICIAN: Clint Hilton IV, M.D. PROCEDURE REQUESTED: OR 79 Extraction - Extract RV lead. Reimplant LBBaP and CS leads PATIENT LOCATION: outpatient DX FOR PROCEDURE: Lead dysfunction DEVICE:Medtronic MEDICATIONS:Not on AC (List medications to be held & how many days prior to procedure) Current Outpatient Medications: busPIRone (BUSPAR) 15 mg tablet sertraline (ZOLOFT) 100 mg tablet lisinopril (ZESTRIL, PRINIVIL) 5 mg tablet doxepin capsule 50 mg cetirizine (ZYRTEC) 10 mg tablet ADVIL 200 MG ORAL CAP AMBULATORY TESTING: OPD consult w/EP Doctor if not seen within 30 days of procedure date. OPD consult w/Cardiothoracic doctor: Anesthesia Clearance Device check EKG (Last EKG > 30 days) Chest X-ray (Last CXR > 1 [address]) [address] Scan w IVCON Echo (Last echo > 2 years) Labs (If > 30 days: CBC, CMP, 30 day type & screen, confirm blood type, PT/INR) Patient had prior cardiac surgery: No. Needs Cardiac CT Is patient infected: No. COMMENTS: Switch to Medtronic device [facility] 08-15-2024 Miscellaneous Notes The date of 11-10-[address] Hilton offered & accepted by patient. Needs all OR 79 appointments scheduled as per protocol the week before date. ----- Message from Clint Hilton MD sent at 07/26/2024 10:27 AM EST ----- Regarding: Extraction Request EP LAB OR EXTRACTION EPS Lab REQUEST: OR 79 Lead Extraction PATIENT NAME: Eleazar Harrison REQUESTING PHYSICIAN: Clint Hilton IV, M.D. PROCEDURE PHYSICIAN: Clint Hilton IV, M.D. PROCEDURE REQUESTED: OR 79 Extraction - Extract RV lead. Reimplant LBBaP and CS leads PATIENT LOCATION: outpatient DX FOR PROCEDURE: Lead dysfunction DEVICE:Medtronic MEDICATIONS:Not on AC (List medications to be held & how many days prior to procedure) Current Outpatient Medications: busPIRone (BUSPAR) 15 mg tablet sertraline (ZOLOFT) 100 mg tablet lisinopril (ZESTRIL, PRINIVIL) 5 mg tablet doxepin capsule 50 mg cetirizine (ZYRTEC) 10 mg tablet ADVIL 200 MG ORAL CAP AMBULATORY TESTING: OPD consult w/EP Doctor if not seen within 30 days of procedure date. OPD consult w/Cardiothoracic doctor: Anesthesia Clearance Device check EKG (Last EKG > 30 days) Chest X-ray (Last CXR > 1 [address]) CT Scan w IVCON Echo (Last echo > 2 years) Labs (If > 30 days: CBC, CMP, 30 day type & screen, confirm blood type, PT/INR) Patient had prior cardiac surgery: No. Needs Cardiac CT Is patient infected: No. COMMENTS: Switch to Medtronic device documented in this encounter [facility] 07-26-2024 Note HNO ID: [id number] Author: CLINT HILTON MD Service: ? Author Type: Physician Type: Progress Notes Filed: 07/26/2024 10:31 Note Text: Heart, Vascular AND Thoracic [place] Department of Cardiovascular Medicine VIRTUAL VIDEO VISIT ESTABLISHED OUTPATIENT VISIT SERVICE DATE: 07/26/2024 Patient: Eleazar Harrison SERVICE TIME: 9:14 AM : 1980 This is a virtual video visit. It required patient-provider interaction for the medical decision making as documented below. Eleazar Harrison has consented to this video encounter. I have communicated my name and active licensure. The patient's identity and physical location were verified at the time of this visit. Either the patient or their legal customer solutions representative has been informed of the risks and benefits of -- and alternatives to -- treatment through a remote evaluation and consents to proceed with the evaluation remotely. Eleazar Harrison is a 43 year old male seen for follow up. CHIEF COMPLAINT discuss extraction IMPRESSION/PLAN: Eleazar Harrison is a very pleasant male patient with a past medical history significant for hypertension, IBS, neurocardiogenic syncope, high degree AV block status post dual-chamber permanent pacemaker in 2005, RV lead malfunction. High degree AV block: He is status post dual-chamber permanent pacemaker with high percentage of RV pacing. He has evidence of RV lead malfunction with increasing capture thresholds and some pocket stimulation. Atrial lead appears to be working well. EF down to about 45% in the setting of chronic RV pacing. Will plan to upgrade his device to biventricular pacemaker given NYHA class II-III symptoms, high percentage of RV pacing and depressed ejection fraction. We discussed options for the old RV lead including extraction and abandonment. We reviewed the risk, benefits and alternatives to these options. Given his young age, there is a high likelihood that he will need additional leads in the future and I would favor extraction of the malfunctioning lead. We reviewed the potential for life-threatening complications with lead extraction. He understands and agrees with extraction. RV lead malfunction: We will plan for extraction and reimplantation with biventricular pacemaker as described above. Chronic systolic heart failure: EF pebbles was around 30 to 35% but more recently has been improved up to about 45%. Will plan for upgrade to biventricular pacemaker as described above. Will plan for a CS lead with left bundle branch pacing as a bailout or as part of LOT-MANAGER [employer]INA HISTORY OF PRESENT ILLNESS Eleazar Harrison is a 43 year old male with a past history of HTN, IBS, neurocardiogenic syncope s/p dual chamber pacemaker insertion 02/2006 with generator change out 2011. He had developed prolonged ND interval and AV block and now is paced in the RV over 80% of the time despite prolonged AV intervals. He developed the need to RV pace in 2017 and developed fatigue and reduced LVEF (30-35%) per echo done at outside hospital in April 2020. The plan was to proceed with extraction of his current Biotronik sytem (all) and implanting MDT MANAGER CHINA-D. However, he had an echo which showed EF 55%, so procedure was cancelled due to he is neither a candidate for MANAGER [place] or ICD upgrade. He then underwent a generator change and his Biotronik PPM gen was changed for a [employer] generator to give a more metabiolic sensor driven rate control 202. He had metabolic stress test which was abnormal due to low functional capacity as he achieved 44% of PMHR. He continues to have episodes of brief syncope daily. He has not sustained any injuries with the falls from the syncopal events, but he usually is able to sit or lay down when he feels one coming on. He endorses fatigue, shortness of breath with exertion, and occasional lightheadedness.. He sometimes has irregular palpitations with exertion. He has sleep apnea and wears CPAP. Patient denies orthopnea, PND, nearsyncope. Device check 06/01/2024 Normal In-Office: With Events DUAL CHAMBER PACEMAKER * Seeing Dr Baez today to discuss lead extraction * Events or Alerts: 3 * Battery: 3.5 years * Sensing, impedance and thresholds reviewed and tested * Presenting Rhythm: /COMMERCIAL SUBCONTRACTOR * Underlying Rhythm: SR with 2nd degree Mobitz 1 and 2. * Heart Rate Histograms reviewed * Pacing and Detection Parameters were evaluated * AP 34%/COMMERCIAL SUBCONTRACTOR 99% Sudden Saul Response/Rate Drop Response * Device triggered Sudden Saul Response * Stored EGMs are consistent with device triggered sudden saul/rate drop response * Total number of events: numerous * Pt reports frequent blacking out, usually in the morning * Device Reprogrammed to make SBR more aggressive Pacemaker Mediated Tachycardia (PMT) * Stored EGMs show false PMT Tachycardia: High Atrial Rate * High atrial rate event(s) detected within programmed monitor zone * ST above MT (more content not included)... [facility] 07-26-2024 History of Present illness Narrative Heart, Vascular & Thoracic [place] Department of Cardiovascular Medicine VIRTUAL VIDEO VISIT ESTABLISHED OUTPATIENT VISIT SERVICE DATE: 07/26/2024 Patient: Eleazar Harrison SERVICE TIME: 9:14 AM : 1980 This is a virtual video visit. It required patient-provider interaction for the medical decision making as documented below. Eleazar Harrison has consented to this video encounter. I have communicated my name and active licensure. The patient's identity and physical location were verified at the time of this visit. Either the patient or their legal customer solutions representative has been informed of the risks and benefits of -- and alternatives to -- treatment through a remote evaluation and consents to proceed with the evaluation remotely. Eleazar Harrison is a 43 year old male seen for follow up. CHIEF COMPLAINT discuss extraction IMPRESSION/PLAN: Eleazar Harrison is a very pleasant male patient with a past medical history significant for hypertension, IBS, neurocardiogenic syncope, high degree AV block status post dual-chamber permanent pacemaker in 2005, RV lead malfunction. High degree AV block: He is status post dual-chamber permanent pacemaker with high percentage of RV pacing. He has evidence of RV lead malfunction with increasing capture thresholds and some pocket stimulation. Atrial lead appears to be working well. EF down to about 45% in the setting of chronic RV pacing. Will plan to upgrade his device to biventricular pacemaker given NYHA class II-III symptoms, high percentage of RV pacing and depressed ejection fraction. We discussed options for the old RV lead including extraction and abandonment. We reviewed the risk, benefits and alternatives to these options. Given his young age, there is a high likelihood that he will need additional leads in the future and I would favor extraction of the malfunctioning lead. We reviewed the potential for life-threatening complications with lead extraction. He understands and agrees with extraction. RV lead malfunction: We will plan for extraction and reimplantation with biventricular pacemaker as described above. Chronic systolic heart failure: EF pebbles was around 30 to 35% but more recently has been improved up to about 45%. Will plan for upgrade to biventricular pacemaker as described above. Will plan for a CS lead with left bundle branch pacing as a bailout or as part of LOT-MANAGER [employer]INA HISTORY OF PRESENT ILLNESS Eleazar Harrison is a 43 year old male with a past history of HTN, IBS, neurocardiogenic syncope s/p dual chamber pacemaker insertion 02/2006 with generator change out 2011. He had developed prolonged ND interval and AV block and now is paced in the RV over 80% of the time despite prolonged AV intervals. He developed the need to RV pace in 2017 and developed fatigue and reduced LVEF (30-35%) per echo done at outside hospital in April 2020. The plan was to proceed with extraction of his current Biotronik sytem (all) and implanting MDT MANAGER [place]-D. However, he had an echo which showed EF 55%, so procedure was cancelled due to he is neither a candidate for MANAGER [place] or ICD upgrade. He then underwent a generator change and his Biotronik PPM gen was changed for a [employer] generator to give a more metabiolic sensor driven rate control 202. He had metabolic stress test which was abnormal due to low functional capacity as he achieved 44% of PMHR. He continues to have episodes of brief syncope daily. He has not sustained any injuries with the falls from the syncopal events, but he usually is able to sit or lay down when he feels one coming on. He endorses fatigue, shortness of breath with exertion, and occasional lightheadedness.. He sometimes has irregular palpitations with exertion. He has sleep apnea and wears CPAP. Patient denies orthopnea, PND, nearsyncope. Device check 06/01/2024 Normal In-Office: With Events DUAL CHAMBER PACEMAKER * Seeing Dr Baez today to discuss lead extraction * Events or Alerts: 3 * Battery: 3.5 years * Sensing, impedance and thresholds reviewed and tested * Presenting Rhythm: /COMMERCIAL SUBCONTRACTOR * Underlying Rhythm: SR with 2nd degree Mobitz 1 and 2. * Heart Rate Histograms reviewed * Pacing and Detection Parameters were evaluated * AP 34%/COMMERCIAL SUBCONTRACTOR 99% Sudden Saul Response/Rate Drop Response * Device triggered Sudden Saul Response * Stored EGMs are consistent with device triggered sudden saul/rate drop response * Total number of events: numerous * Pt reports frequent blacking out, usually in the morning * Device Reprogrammed to make SBR more aggressive Pacemaker Mediated Tachycardia (PMT) * Stored EGMs show false PMT Tachycardia: High Atrial Rate * High atrial rate event(s) detected within programmed monitor zone * ST above MTR Elevated RV Capture Threshold * Elevated RV Capture Threshold * Measured value 2V@0.4ms * Programmed setting 5V@0.4ms * Local clinic aware. Pt is here for extraction consult Treadmill stress test 08/18/2023 Conclusions Ischemic Evaluation Negative perfusion stress test for ischemia, Normal myocardial perfusion with soft tissue artifact, Normal global left ventricular function, No transient ischemia dilatation and Patient walked on treadmill and had Ventricular pacing on ECG and reach 82% of maximal predicted value. No lexiscan was given per Dr. Santos. Atherosclerosis Evaluation: No coronary calcification on attenuation CT was appreciated, a lot of artifact due to pacer's leads. Echo 08/18/2023 Conclusions Left Ventricle: The left ventricle is normal size. Global left ventricular systolic function is difficult to assess but appears reduced. The EF is 45 % visually. Left ventricular wall thickness is normal. Regional wall motion abnormalities (see diagram). Diastolic dysfunction. Concentric cardiac remodeling. Right Ventricle: The right ventricle is normal in size. Normal right ventricular systolic function. Unable to assess right sided pressures due to lack of measurable tricuspid regurgitation. Left Atrium: The left atrium appears normal in size. Overall PAST MEDICAL HISTORY Diagnosis Date Irritable bowel syndrome Irritable bowel Neurocardiogenic syncope Pacemaker Pacemaker 02/2006 dual chamber Sleep apnea CPAP Unspecified essential hypertension PAST SURGICAL HISTORY Procedure Laterality Date APPENDECTOMY age 18 FAMILY HISTORY Problem Relation Age of Onset Hypertension Mother Asthma Mother Ischemic Heart Disease Mother Hypertension Father Pancreatitis Father Hypertension Maternal Grandmother Hypertension Maternal Grandfather Ischemic Heart Disease Maternal Grandfather Hypertension Paternal Grandmother other (malignant neoplastic disease) Paternal Grandmother Hypertension Paternal Grandfather Ischemic Heart Disease Paternal Grandfather Stroke Paternal Grandfather Liver Cancer Son 0 s/p liver transplant x 2 (diagnosed age 6 months) Social History Tobacco Use Smoking status: Former Current packs/day: 0.00 Average packs/day: 1 pack/day for 7.0 years (7.0 ttl pk-yrs) Types: Cigarettes Start date: 06/11/1999 Quit date: 06/11/2006 Years since quittin.1 Smokeless tobacco: Current Types: Chew Vaping Use Vaping status: Never Used Substance Use Topics Alcohol use: Not Currently Comment: rare Drug use: Not Currently ALLERGIES No Known Allergies CURRENT MEDICATIONS busPIRone (BUSPAR) 15 mg tablet Take 1 tablet by mouth twice daily. sertraline (ZOLOFT) 100 mg tablet Take 100 mg by mouth once daily. lisinopril (ZESTRIL, PRINIVIL) 5 mg tablet Take 5 mg by mouth once daily. doxepin capsule 50 mg Take 50 mg by mouth daily at bedtime. cetirizine (ZYRTEC) 10 mg tablet Take 10 mg by mouth once daily. ADVIL 200 MG ORAL CAP as necessary PHYSICAL EXAMINATION: VIDEO EXAM: (if completed, performed via video enabled technology) GENERAL: alert and appropriate, in no distress, well-hydrated, well nourished, and happy, smiling, interactive SKIN: no rash noted HEAD: normocephalic, no abnormality or lesion noted EYES: no injection and visual acuity is grossly normal 05/29/2024 PROMIS Global Health - (T-Scores - the mean of general population = 50. Five points is a clinically meaningful difference.) Physical T-Score 39.8 Mental T-Score 45.8 I personally spent 25 minutes in total time involved in the management and care of this patient. Amie Little RN July 26, 2024 9:10 AM documented in this encounter [facility] 06-06-2024 Note Patient here to disc uss visit at [facility]. Says he saw a physician that told him he doesn't do lead extractions. Says his pacemaker was adjusted and his HR has been elevated. He's c/o chest pain and SOB. Review of Systems Cardiovascular: Positive for chest pain, dyspnea on exertion, leg swelling, near-syncope, palpitations and syncope. Neurological: Positive for dizziness and light-headedness. All other systems reviewed and are negative. [facility] 06-06-2024 Note SD Electrophysiology Consult Note Reason for Consultation: Follow up 06/06/24 Pt was seen by [facility] EP and planned for lead extraction. He is awaiting call from Dr Hilton. Pt felt his HR more and I interrogated and adjusted the sensed and paced AV delay to 300ms. He felt better with ambulation after that. 04/18/24 Patient here for follow up and device check. states he's blacking out 5-6 times a day, but patient says it's more like 2-3. Episodes last 1-2 minutes at a time. C/o rash on lower extremities. His RV lead thresholds has gone up an he states he had some passing pout episodes. This has occurred irrespective of lead issues in the past. 10/12/23 Patient is on lisinopril 5 mg once daily along with BuSpar and Sinequan. last device check shows multiple episodes of high atrial rate consistent with atrial flutter or atrial tachycardia at 150 beats a minute Although the burden of which has been less than 1% and these episodes have been more than an hour as per the device data. He also underwent a treadmill stress test to see whether he is exercise-induced AV block and appeared to be the case as he was being ventricularly paced when he was exercising. no evidence of chronotropic incompetence. 07/20/23 Patient here for 6 mo follow up. . He is scheduled for routine device check next month. Still very symptomatic and blacking out multiple times a day. This occurs mainly when he is tries to stand up after he has nights rest. he also complains of shortness of breath with activity. 11/10/22 Patient has 2-3 syncopal episodes daily more towards early AM. Still has chest pain, SOB, lightheadedness, and palpitations. Device check 11/10/22: patient is paced 33% of the time in the atrium and 96% of the time in the ventricle. There are episodes of high atrial rate which is resulted in mode switch the longest of these episodes lasted 3 minutes and 30 seconds review of the EGM shows them to be of an atrial cycle length of 410 ms consistent with possible atrial tachycardia. Prior HPI: Eleazar Harrison is a 43 y.o. year old with cardiac history that started ~20yrs ago with a edgar syncope from bradycardia. This was evlauated on many occassions and attributed to be from neurocardiogenic syncope. He initially had a MDT PPM at [facility] and during gen change was changed to [employer] to offer CLS acing options. Although his episodes of syncope which has been daily had improved, he still had fatigue. He was placed on Midodrine. Pacer check revealed Apcing at >90% and RV pacing which serial checks has revealed as progressively increasing to the point that it is >95% now. Concomitantly, the LV EF has progressively decreased. He had been eval by Dr. Sommers and discussion about MANAGER [employer]INA vs His lead was made but pt has mentioned there was no follow up. Pt had a stress test which revealed evidence of vasodepressor response and on exercise had initial type 1 2nd degree AVB which latr worsenned to SA exit block with lower HR on exercise than at rest. This is indicative of SND and there was no AV block on prologing AV conduction. Pt had a visit to [facility] previoiusly for planned lead extraction and upgrade to MANAGER CHINA-D. However the EF just before procedure was noted to be normal and so procedure was called of as he did not met criteria for MANAGER [employer]INA upgrade. He then underwent a generator change and his Biotronik PPM gen was changed for a [employer] generator so as to give a more metabiolic sensor driven rate control. Pt is doing well and no issues to note. No syncope since gen change and feels PPM is able to give HR as desired for the mot part. He needs surgery clearance for vasectomy, scheduled for next week. He has no limitations. PMH: Past Medical History: Diagnosis Date Abnormal ECG Cardiomyopathy (CMS/HCC) CHF (congestive heart failure) (CMS/HCC) Hypertension Sleep apnea Syncope PSH: Past Surgical History: Procedure Laterality Date APPENDECTOMY CARDIAC CATHETERIZATION INSERT / REPLACE / REMOVE PACEMAKER SH: Social Determinants of Health Tobacco Use: High Risk (06/01/2024) Received from [facility] Patient History Smoking Tobacco Use: Former Smokeless Tobacco Use: Current Passive Exposure: Not on file Alcohol Use: Not on file Financial Resource Strain: Not on file Food Insecurity: Not on file Transportation Needs: Not on file Physical Activity: Not on file Stress: Not on file Social Connections: Not on file Intimate Partner Violence: Unknown (09/02/2023) [place] Safety & Environment Fear of Current or Ex-Partner: Not on file Emotionally Abused: Not on file Physically Abused: Not on file Sexually Abused: Not on file Physically or Sexually Abused: Not on file Depression: Not on file Housing Stability: Not on file Utilities: Not on file Health Literacy: Not on file Meds: Current Outpatient Medications on File Prior to Visit Medication Sig Dispense Refill bu (more content not included)... [facility] 06-01-2024 History of Present illness Narrative Images from the original note were not included. [facility] [place] [facility] Department of Cardiovascular Medicine SECTION OF CARDIAC PACING and ELECTROPHYSIOLOGY OUTPATIENT VISIT DATE June 01, 2024 OUTPATIENT VISIT TYPE NEW PRIMARY CARE PHYSICIAN: Heather Hong MD [facility] [place] [address] REFERRING PHYSICIAN: Virgilio Santos MD [address] [facility] [id number] CHIEF COMPLAINT: Device management HISTORY OF PRESENT ILLNESS/NURSING INTAKE HISTORY: Mr. Harrison is a 43 year old male who presents today for device management. He was a former patient of Dr. Irving, last seen on 12/16/2020. He has a past history of HTN, IBS, neurocardiogenic syncope s/p dual chamber pacemaker insertion 02/2006 with generator change out 2011. He had developed prolonged ND interval and AV block and now is paced in the RV over 80% of the time despite prolonged AV intervals. The patient developed the need to RV pace since 2017 and developed fatigue and reduced LVEF (30-35%) per echo done at outside hospital in April 2020. The plan was to proceed with extraction of his current Biotronik sytem (all) and implanting MDT MANAGER [place]-D. However, he had an echo which showed EF 55%, so procedure was cancelled due to he is neither a candidate for MANAGER [employer] or ICD upgrade. He then underwent a generator change and his Biotronik PPM gen was changed for a Collusion generator to give a more metabiolic sensor driven rate control . He had metabolic stress test which was abnormal due to low functional capacity as he achieved 44% of PMHR. He continues to have episodes of brief syncope daily. He has not sustained any injuries with the falls from the syncopal events, but he usually is able to sit or lay down when he feels one coming on. He endorses fatigue, shortness of breath with exertion, and occasional lightheadedness.. He sometimes has irregular palpitations with exertion. He has sleep apnea and wears CPAP. Patient denies orthopnea, PND, nearsyncope. PAST MEDICAL HISTORY Diagnosis Date Irritable bowel syndrome Irritable bowel Neurocardiogenic syncope Pacemaker Sleep apnea CPAP Unspecified essential hypertension PAST SURGICAL HISTORY Procedure Laterality Date APPENDECTOMY age 18 SOCIAL HISTORY Social History Tobacco Use Smoking status: Former Current packs/day: 0.00 Average packs/day: 1 pack/day for 7.0 years (7.0 ttl pk-yrs) Types: Cigarettes Start date: 06/11/1999 Quit date: 06/11/2006 Years since quittin.9 Smokeless tobacco: Current Types: Chew Vaping Use Vaping status: Never Used Substance Use Topics Alcohol use: Not Currently Comment: rare Drug use: Not Currently FAMILY HISTORY Problem Relation Age of Onset Hypertension Mother Asthma Mother Ischemic Heart Disease Mother Hypertension Father Pancreatitis Father Hypertension Maternal Grandmother Hypertension Maternal Grandfather Ischemic Heart Disease Maternal Grandfather Hypertension Paternal Grandmother other (malignant neoplastic disease) Paternal Grandmother Hypertension Paternal Grandfather Ischemic Heart Disease Paternal Grandfather Stroke Paternal Grandfather Liver Cancer Son 0 s/p liver transplant x 2 (diagnosed age 6 months) ALLERGIES: ALLERGIES No Known Allergies MEDICATIONS: busPIRone (BUSPAR) 15 mg tablet Take 1 tablet by mouth twice daily. sertraline (ZOLOFT) 100 mg tablet Take 100 mg by mouth once daily. carvedilol (COREG) 3.125 mg tablet Take 3.125 mg by mouth twice daily with meals. glycopyrrolate (ROBINUL) 1 mg tablet Take 1 mg by mouth once daily. lisinopril (ZESTRIL, PRINIVIL) 5 mg tablet Take 5 mg by mouth once daily. doxepin capsule 50 mg Take 50 mg by mouth daily at bedtime. aspirin, enteric coated (ASPIRIN, ENTERIC COATED) 81 mg EC tablet Take 81 mg by mouth once daily. pyridostigmine (MESTINON) 60 mg tablet Take 60 mg by mouth once daily. cetirizine (ZYRTEC) 10 mg tablet Take 10 mg by mouth once daily. ADVIL 200 MG ORAL CAP as necessary REVIEW OF SYSTEMS: General, constitutional: Weight loss or gain- No, Fever or chills-No, Weakness-No, Trouble sleeping-No. Head, Eyes, Ears, Mouth: Headache, head injury-No, Glasses or contact lenses-No, Pain-No, Impaired vision-No, Decreased hearing-No, Ringing in ears-No, Nose bleeds-No, Dental difficulties-No, Bleeding gums-No, Dentures-No. Neck: Swelling-No, Pain-No, Stiffness-No. Respiratory: Cough-No, Spitting up blood-No, Shortness of breath-No, Wheezing or asthma-No. Musculoskeletal: Muscle or joint pain or stiffness-No, Joint swelling-No. Gastrointestinal: Difficulty swallowing-No, Heartburn-No, Change in bowel habits-No, Blood in stool, Dark black stools-No. Neurological/Psychiatric: Weakness, paralysis-No, Numbness-No, Tingling-No, Tremor-No, Nervousness or anxiety-No, Depressed mood-No, Memory loss-No. Skin: Rash-No, Itching-No. Hematological: Easy bruising-No, Easy bleeding-No. Endocrine: Heat or cold intolerance-No, Excessive sweating-No, Frequent urination-No, Frequent thirst-No. Alejandra Mata RN PHYSICAL EXAMINATION: There were no vitals taken for this visit. General: Well appearing, in no acute distress, speaking in complete sentences. CARDIOVASCULAR MEDICINE TESTING: EKG 06/01/2024 reviewed: ASVP Device check 06/01/2024 Normal In-Office: With Events DUAL CHAMBER PACEMAKER * Seeing Dr Baez today to discuss lead extraction * Events or Alerts: 3 * Battery: 3.5 years * Sensing, impedance and thresholds reviewed and tested * Presenting Rhythm: /COMMERCIAL SUBCONTRACTOR * Underlying Rhythm: SR with 2nd degree Mobitz 1 and 2. * Heart Rate Histograms reviewed * Pacing and Detection Parameters were evaluated * AP 34%/COMMERCIAL SUBCONTRACTOR 99% Sudden Saul Response/Rate Drop Response * Device triggered Sudden Saul Response * Stored EGMs are consistent with device triggered sudden saul/rate drop response * Total number of events: numerous * Pt reports frequent blacking out, usually in the morning * Device Reprogrammed to make SBR more aggressive Pacemaker Mediated Tachycardia (PMT) * Stored EGMs show false PMT Tachycardia: High Atrial Rate * High atrial rate event(s) detected within programmed monitor zone * ST above MTR Elevated RV Capture Threshold * Elevated RV Capture Threshold * Measured value 2V@0.4ms * Programmed setting 5V@0.4ms * Local clinic aware. Pt is here for extraction consult Treadmill stress test 08/18/2023 Conclusions Ischemic Evaluation Negative perfusion stress test for ischemia, Normal myocardial perfusion with soft tissue artifact, Normal global left ventricular function, No transient ischemia dilatation and Patient walked on treadmill and had Ventricular pacing on ECG and reach 82% of maximal predicted value. No lexiscan was given per Dr. Santos. Atherosclerosis Evaluation: No coronary calcification on attenuation CT was appreciated, a lot of artifact due to pacer's leads. Echo 08/18/2023 Conclusions Left Ventricle: The left ventricle is normal size. Global left ventricular systolic function is difficult to assess but appears reduced. The EF is 45 % visually. Left ventricular wall thickness is normal. Regional wall motion abnormalities (see diagram). Diastolic dysfunction. Concentric cardiac remodeling. Right Ventricle: The right ventricle is normal in size. Normal right ventricular systolic function. Unable to assess right sided pressures due to lack of measurable tricuspid regurgitation. Left Atrium: The left atrium appears normal in size. Overall Exercise metabolic stress test 12/02/20: OBSERVATION: 1. THE TEST WAS TERMINATED DUE TO LEG FATIGUE. 2. INADEQUATE HEART RATE RESPONSE OF 44% PREDICTED MAXIMAL HEART RATE. 3. FUNCTIONAL CAPACITY WAS MEASURED AT 5.3 METS, STAGE 5 CYCLE MANUAL PROTOCOL. THIS REPRESENTS MARKED FUNCTIONAL AEROBIC IMPAIRMENT OF 59%. [place] [address], POOR FUNCTIONAL CAPACITY FOR AGE AND GENDER. HIGH RISK. 4. NORMAL BLOOD PRESSURE RESPONSE TO STRESS. 5. UNINTERPRETABLE ST SEGMENT RESPONSE DUE TO VENTRICULAR PACED RHYTHM. 7. PALPITATIONS WERE NOTED DURING STRESS. 8. UNIFOCAL PVC'S DURING THE TEST. 9. THE PREVIOUS TEST IS NOT AVAILABLE FOR COMPARISON. * PLEASE SEE THE METABOLIC REPORT FOR THE METABOLIC DATA. CONCLUSION: ABNORMAL DUE TO: POOR FUNCTIONAL CAPACITY. Echo 11/12/20: - The left ventricle is normal in size. Left ventricular systolic function is normal. EF = 55 5% (2D biplane) Left ventricular diastolic function was not evaluated due to pacing. - The right ventricle is normal in size. Right ventricular systolic function is normal. - There are no significant valvular abnormalities. - Exam was compared with the prior echocardiographic exam performed on 08/11/2006. Similar findings reported. Cardiac CT 11/12/20: 1. The thoracic aorta is normal. There is no acute aortic pathology. 2. S/P PPM - detailed above 3. Proximity of the cardiovascular structures to the sternum: The left brachiocephalic vein lies in close proximity to the posterior aspect of the manubrium at >1cm. The remainder of the cardiac and vascular structures lie a safe distance from the sternum. I have personally reviewed the Echocardiogram, Stress Test: Metabolic and Device Check. IMPRESSION: Mr. Harrison is a 43 year old male who has a PMH of HTN, IBS, neurocardiogenic syncope s/p dual chamber pacemaker insertion 02/2006 with generator change out 2011. Initially DDD pacemaker was intended for vasovagal syncope. However, he had developed prolonged ND interval and AV block and now is paced in the RV 99% of the time. The patient developed the need to RV pace since 2017 and developed fatigue and reduced LVEF (30-35%) per echo done at outside hospital in April 2020. The plan was to proceed with extraction of his current Biotronik sytem (all) and implanting MDT MANAGER [place]-D. However, he had an echo which showed EF 55%, and the procedure was cancelled at that time. He continues to have episodes of brief syncope daily especially when he wakes up and sitting on the bed. This does not accompany signs of vagal mediated syncope, such as cold sweat or narrow vision. Furthermore, his recent echo showed reduced LVEF 45% and his daily activity level was significantly decreased. He is here for the opinion regarding the management of his device. Notably, his RV pacing threshold is trending up, now 2.0V/0.4ms with significant impedance rise (>1200 ohm). Given the concern of the lead integrity of his RV lead, extraction with LBB lead implant is an option. If extracting the near 20 year old lead is the concern, simply adding LBB lead with abandoning the RV lead is also another option. He stated he is open for any option as we recommend, although they sounded like they are leaning to extraction. I recommended to see Dr. Hilton with [facility] and discuss the option. I personally shared his information with Dr. Hilton today, and he will set up virtual visit with him. Regarding his recent syncope, it is not still sure this is from his RV lead damage (such as lead noise) or vaso vagal response. I also recommended to repeat echo locally to follow-up his LVEF PLAN AND RECOMMENDATIONS: # AV block s/p DDD-PMI, RV pacing induced CM, LVEF 45% # VVS - VV with Dr. Hilton is recommended - Repeat Echo locally I personally interviewed, confirmed and edited the above information as obtained by others. It was a pleasure contributing to this patient's medical care. I reviewed any prior outside records with the patient, obtained relevant HPI and PMH from the patient, examined the patient and created the above report. I spent over 70% of my time counseling the patient regarding my assessment and recommendations. Signature: ANDREA BAEZ MD, PhD Department: Associate Staff, Department of Cardiac Electrophysiology DATE of SERVICE: 06/01/2024 TIME of SERVICE: 8:00 PM documented in this encounter [facility] 06-01-2024 Note HNO ID: [id number] Author: ANDREA BAEZ MD Service: ? Author Type: Physician Type: Progress Notes Filed: 06/01/2024 20:00 Note Text: [facility] [place] [facility] Department of Cardiovascular Medicine SECTION OF CARDIAC PACING and ELECTROPHYSIOLOGY OUTPATIENT VISIT DATE June 01, 2024 OUTPATIENT VISIT TYPE NEW PRIMARY CARE PHYSICIAN: Heather Hong MD [address] [place] [address] REFERRING PHYSICIAN: Virgilio Santos MD [address] [place] [id number] CHIEF COMPLAINT: Device management HISTORY OF PRESENT ILLNESS/NURSING INTAKE HISTORY: Mr. Harrison is a 43 year old male who presents today for device management. He was a former patient of Dr. Irving, last seen on 12/16/2020. He has a past history of HTN, IBS, neurocardiogenic syncope s/p dual chamber pacemaker insertion 02/2006 with generator change out 2011. He had developed prolonged ND interval and AV block and now is paced in the RV over 80% of the time despite prolonged AV intervals. The patient developed the need to RV pace since 2017 and developed fatigue and reduced LVEF (30-35%) per echo done at outside hospital in April 2020. The plan was to proceed with extraction of his current Biotronik sytem (all) and implanting MDT MANAGER [place]-D. However, he had an echo which showed EF 55%, so procedure was cancelled due to he is neither a candidate for MANAGER [place] or ICD upgrade. He then underwent a generator change and his Biotronik PPM gen was changed for a [employer] generator to give a more metabiolic sensor driven rate control . He had metabolic stress test which was abnormal due to low functional capacity as he achieved 44% of PMHR. He continues to have episodes of brief syncope daily. He has not sustained any injuries with the falls from the syncopal events, but he usually is able to sit or lay down when he feels one coming on. He endorses fatigue, shortness of breath with exertion, and occasional lightheadedness.. He sometimes has irregular palpitations with exertion. He has sleep apnea and wears CPAP. Patient denies orthopnea, PND, nearsyncope. PAST MEDICAL HISTORY Diagnosis Date Irritable bowel syndrome Irritable bowel Neurocardiogenic syncope Pacemaker Sleep apnea CPAP Unspecified essential hypertension PAST SURGICAL HISTORY Procedure Laterality Date APPENDECTOMY age 18 SOCIAL HISTORY Social History Tobacco Use Smoking status: Former Current packs/day: 0.00 Average packs/day: 1 pack/day for 7.0 years (7.0 ttl pk-yrs) Types: Cigarettes Start date: 06/11/1999 Quit date: 06/11/2006 Years since quittin.9 Smokeless tobacco: Current Types: Chew Vaping Use Vaping status: Never Used Substance Use Topics Alcohol use: Not Currently Comment: rare Drug use: Not Currently FAMILY HISTORY Problem Relation Age of Onset Hypertension Mother Asthma Mother Ischemic Heart Disease Mother Hypertension Father Pancreatitis Father Hypertension Maternal Grandmother Hypertension Maternal Grandfather Ischemic Heart Disease Maternal Grandfather Hypertension Paternal Grandmother other (malignant neoplastic disease) Paternal Grandmother Hypertension Paternal Grandfather Ischemic Heart Disease Paternal Grandfather Stroke Paternal Grandfather Liver Cancer Son 0 s/p liver transplant x 2 (diagnosed age 6 months) ALLERGIES: ALLERGIES No Known Allergies MEDICATIONS: busPIRone (BUSPAR) 15 mg tablet Take 1 tablet by mouth twice daily. sertraline (ZOLOFT) 100 mg tablet Take 100 mg by mouth once daily. carvedilol (COREG) 3.125 mg tablet Take 3.125 mg by mouth twice daily with meals. glycopyrrolate (ROBINUL) 1 mg tablet Take 1 mg by mouth once daily. lisinopril (ZESTRIL, PRINIVIL) 5 mg tablet Take 5 mg by mouth once daily. doxepin capsule 50 mg Take 50 mg by mouth daily at bedtime. aspirin, enteric coated (ASPIRIN, ENTERIC COATED) 81 mg EC tablet Take 81 mg by mouth once daily. pyridostigmine (MESTINON) 60 mg tablet Take 60 mg by mouth once daily. cetirizine (ZYRTEC) 10 mg tablet Take 10 mg by mouth once daily. ADVIL 200 MG ORAL CAP as necessary REVIEW OF SYSTEMS: General, constitutional: Weight loss or gain- No, Fever or chills-No, Weakness-No, Trouble sleeping-No. Head, Eyes, Ears, Mouth: Headache, head injury-No, Glasses or contact lenses-No, Pain-No, Impaired vision-No, Decreased hearing-No, Ringing in ears-No, Nose bleeds-No, Dental difficulties-No, Bleeding gums-No, Dentures-No. Neck: Swelling-No, Pain-No, Stiffness-No. Respiratory: Cough-No, Spitting up blood-No, Shortness of breath-No, Wheezing or asthma-No. Musculoskeletal: Muscle or joint pain or stiffness-No, Joint swelling-No. Gastrointestinal: Difficulty swallowing-No, Heartburn-No, Change in bowel habits-No, Blood in stool, Dark black stools-No. Neurological/Psychiatric: Weakness, paralysis-No, Numbness-No, (more content not included)... [facility] 06-01-2024 Evaluation note Diagnosis AICD lead malfunction [T82.110A]- Primary Mechanical complication due to automatic implantable cardiac defibrillator CHB (complete heart block) (HCC) Atrioventricular block, complete Cardiac pacemaker in situ [Z95.0] Cardiac pacemaker in situ Palpitation Palpitations documented in this encounter [facility]10-08-2024 NoteUT Electrophysiology Consult Note Reason for Consultation: Follow up 04/18/24 Patient here for follow up and device check. states he's blacking out 5-6 times a day, but patient says it's more like 2-3. Episodes last 1-2 minutes at a time. C/o rash on lower extremities. His RV lead thresholds has gone up an he states he had some passing pout episodes. This has occurred irrespective of lead issues in the past. 10/12/23 Patient is on lisinopril 5 mg once daily along with BuSpar and Sinequan. last device check shows multiple episodes of high atrial rate consistent with atrial flutter or atrial tachycardia at 150 beats a minute Although the burden of which has been less than 1% and these episodes have been more than an hour as per the device data. He also underwent a treadmill stress test to see whether he is exercise-induced AV block and appeared to be the case as he was being ventricularly paced when he was exercising. no evidence of chronotropic incompetence. 07/20/23 Patient here for 6 mo follow up. . He is scheduled for routine device check next month. Still very symptomatic and blacking out multiple times a day. This occurs mainly when he is tries to stand up after he has nights rest. he also complains of shortness of breath with activity. 11/10/22 Patient has 2-3 syncopal episodes daily more towards early AM. Still has chest pain, SOB, lightheadedness, and palpitations. Device check 11/10/22: patient is paced 33% of the time in the atrium and 96% of the time in the ventricle. There are episodes of high atrial rate which is resulted in mode switch the longest of these episodes lasted 3 minutes and 30 seconds review of the EGM shows them to be of an atrial cycle length of 410 ms consistent with possible atrial tachycardia. Prior HPI: Eleazar Harrison is a 43 y.o. year old with cardiac history that started ~20yrs ago with a edgar syncope from bradycardia. This was evlauated on many occassions and attributed to be from neurocardiogenic syncope. He initially had a MDT PPM at [facility] and during gen change was changed to Biotronik to offer CLS acing options. Although his episodes of syncope which has been daily had improved, he still had fatigue. He was placed on Midodrine. Pacer check revealed Apcing at >90% and RV pacing which serial checks has revealed as progressively increasing to the point that it is >95% now. Concomitantly, the LV EF has progressively decreased. He had been eval by Dr. Sommers and discussion about MANAGER [employer] vs His lead was made but pt has mentioned there was no follow up. Pt had a stress test which revealed evidence of vasodepressor response and on exercise had initial type 1 2nd degree AVB which latr worsenned to SA exit block with lower HR on exercise than at rest. This is indicative of SND and there was no AV block on prologing AV conduction. Pt had a visit to [facility] previoiusly for planned lead extraction and upgrade to MANAGER [employer]-D. However the EF just before procedure was noted to be normal and so procedure was called of as he did not met criteria for MANAGER [employer] upgrade. He then underwent a generator change and his Biotronik PPM gen was changed for a Collusion generator so as to give a more metabiolic sensor driven rate control. Pt is doing well and no issues to note. No syncope since gen change and feels PPM is able to give HR as desired for the mot part. He needs surgery clearance for vasectomy, scheduled for next week. He has no limitations. PMH: Past Medical History: Diagnosis Date Abnormal ECG Cardiomyopathy (CMS/HCC) CHF (congestive heart failure) (CMS/HCC) Hypertension Sleep apnea Syncope PSH: Past Surgical History: Procedure Laterality Date APPENDECTOMY CARDIAC CATHETERIZATION INSERT / REPLACE / REMOVE PACEMAKER SH: Social Determinants of Health Tobacco Use: High Risk (10/12/2023) Patient History Smoking Tobacco Use: Former Smokeless Tobacco Use: Current Passive Exposure: Not on file Alcohol Use: Not on file Financial Resource Strain: Not on file Food Insecurity: Not on file Transportation Needs: Not on file Physical Activity: Not on file Stress: Not on file Social Connections: Not on file Intimate Partner Violence: Unknown (09/02/2023) [place] Safety & Environment Fear of Current or Ex-Partner: Not on file Emotionally Abused: Not on file Physically Abused: Not on file Sexually Abused: Not on file Physically or Sexually Abused: Not on file Depression: Not on file Housing Stability: Not on file Utilities: Not on file Meds: Current Outpatient Medications on File Prior to Visit Medication Sig Dispense Refill busPIRone (Buspar) 15 mg tablet Take 15 mg by mouth in the morning and 15 mg in the evening. cetirizine (ZyrTEC) 10 mg tablet Take 10 mg by mouth in the morning. doxepin (SINEquan) 25 mg capsule Take 50 mg by mouth in the morning. lisinopril 5 mg tablet Take 1 tablet (5 mg) by mouth once daily as directed. (more content not included)...[facility]08-08-2024 History of Present illness Narrative* Anthony Mcneill Jr., MD - 02/17/2024 10:07 PM EDT Patient canceled today's appointment. I instructed staff to reschedule the patient. documented in this [facility]08-08-2024 Miscellaneous Notes* Telephone Encounter - Anthony Mcneill Jr., MD - 02/17/2024 10:06 PM EDT Patient canceled today's appointment. Reschedule within 3 months documented in this [facility]08-08-2024 Telephone encounter Note* Telephone Encounter - Anthony Mcneill Jr., MD - 02/17/2024 10:06 PM EDT Patient canceled today's appointment. Reschedule within 3 months [facility]04-01-2024 Miscellaneous Notes* Telephone Encounter - Sheeba Villalta - 10/11/2023 3:17 PM EDT PATIENT LEFT MESSAGE THAT IT IS GOING TO TAKE 8 TO 12 WEEKS FOR [facility] TO OBTAIN A NEW CPAP MACHINE. PT WANTED TO LET YOU KNOW BECAUSE HE WAS TOLD TO COME BACK IN DECEMBER (WHICH NOTHING IS SCHEDULED YET) * Telephone Encounter - KHADAR Currie - 10/11/2023 3:17 PM EDT Lead Recreation Assistant called patient back and left voicemail informing him that he does have an appointment scheduled on 12/22/2023. Need to discuss with patient that he should call us once he gets his new PAP machine setup so that we can see if his appointment will need rescheduled or not. [facility] Telephone encounter Note* Telephone Encounter - Sheeba Villalta - 10/11/2023 3:17 PM EDT PATIENT LEFT MESSAGE THAT IT IS GOING TO TAKE 8 TO 12 WEEKS FOR [facility] TO OBTAIN A NEW CPAP MACHINE. PT WANTED TO LET YOU KNOW BECAUSE HE WAS TOLD TO COME BACK IN DECEMBER (WHICH NOTHING IS SCHEDULED YET) [facility]04-01-2024 Telephone encounter Note* Telephone Encounter - KHADAR Currie - 10/11/2023 3:17 PM EDT Lead Recreation Assistant called patient back and left voicemail informing him that he does have an appointment scheduled on 12/22/2023. Need to discuss with patient that he should call us once he gets his new PAP machine setup so that we can see if his appointment will need rescheduled or not. [facility]03-13-2024 History of Present illness Narrative* Nicki Davenport, FINAL FINISHER-NURSE COORDINATOR - 09/22/2023 2:00 PM EDT Images from the original note were not included. Chief Complaint: Eleazar Harrison [facility] for initial visit on 09/22/2023. He is a 42 y.o. male followed at the Sleep Clinic for RONALD, for which CPAP 14 cm H2O was prescribed. HPI: The patient reports that he is adherent to his nocturnal ventilatory support for 8.5 hours a night 7 days per week. He reports feeling the benefits of wearing it nightly and denies any am fatigue or excessive daytime sleepiness. Denies any aerophagia. He is in need of a new machine. He reports having dyspnea with exertion. He denies any fevers, chills, hemoptysis, wheezing, or chest pain. Overall, he is very pleased with his current status. He denies sleepiness while driving. Supplemental O2 use: None Current PAP interface: He uses a Nasal Mask. He does not use a chinstrap. He does use the heated inline humidifier. Cleaning supplies with soap and water. Sleep Habits: Sleep Questionnaire 09/22/2023 2:02 PM EDT - Filed by KHADAR Currie Have you previously had a sleep study? Yes Do you have a partner (girlfriend/boyfriend, spouse, etc) ? Yes Do you or your bed partner currently notice any of the following symptoms? Excessive daytime sleepiness Yes Frequent snoring Yes Snore yourself awake from sleep Yes Witnessed apneas (holding breath during sleep) No Waking up choking, gasping or short of breath No Excessively sweating overnight Yes Waking up with dry mouth or sore throat No Morning headaches Yes Waking up to urinate at night Yes Nighttime heartburn interfering with sleep No Frequent disturbing dreams or nightmares No Sleep walking No Unusual behaviors during sleep No Injury to yourself or partner during sleep No Imagine seeing or hearing things that are not real as you fall asleep or wake up No Momentary inability to move body (paralysis) as falling askeep or waking up No Insomnia (difficulty falling asleep or staying asleep) Yes Teeth clenching/grinding No Waking up disoriented / confused No Do you currently receive medical equipment for sleep conditions? Yes Have you had any other treatments for sleep apnea? Yes How likely are you to doze off or fall asleep in the following situations, in contrast to feeling just tired? Sitting and reading moderate chance of dozing Watching TV moderate chance of dozing Sitting inactive in a public place (e.g. a theater or a meeting) no chance of dozing As a passenger in a car for an hour without a break slight chance of dozing Lying down to rest in the afternoon when circumstances permit high chance of dozing Sitting and talking to someone no chance of dozing Sitting quietly after a lunch without alcohol no chance of dozing In a car, while stopped for a few minutes in traffic no chance of dozing Weekday Sleep Schedule What time do you get into bed? 8:00 PM What time do you try to go to sleep? 9:30 PM Time it takes to fall asleep (minutes) 45 What time do you wake up? 7:00 AM What time do you get out of bed? 7:30 AM Weekend Sleep Schedule What time do you get into bed? 8:00 PM What time do you try to go to sleep? 9:30 PM Time it takes to fall asleep (minutes) 45 What time do you wake up weekends? 6:00 AM What time do you get out of bed? 6:30 AM Do you watch TV, read or use phone/computer in bed? Yes Number of aazhfq-ji-oud-night awakenings per night? 3-4 Cause of awakenings (if applicable): just wakes up Total average number of hours of sleep per night: 8 How many naps do you take a day and for how long? 1 nap, 45 minutes Do you feel refreshed after your naps? Yes Do you do shift work or work overnights? No [place] Sleepiness Scale: Sitting and Reading: (!) Moderate Chance Watching TV: (!) Moderate Chance Sitting inactive in a public place (theater, meeting): Never As a passenger in a car for an hour without a break: Slight Chance Lying down in the afternoon to rest: (!) High Chance Sitting and talking to someone: Never Sitting quietly after lunch (without alcohol): Never In a car, while stopped for a few minutes in traffic: Never Total: 8 OARRS: Reviewed: no PMH: Pertinent History: His pertinent medical history includes Past Medical History: Diagnosis Date Anxiety Arrhythmia Bilateral inguinal hernia CHF (congestive heart failure) ([facility]) Dizziness Fractures Hyperlipidemia Hypertension IBS (irritable bowel syndrome) Neurocardiogenic syncope Obesity Pacemaker Psoriasis Pulmonary nodule Calcified right long Sick sinus syndrome ([facility]) Sleep apnea uses CPAP Vasovagal syncope Visual impairment Reading Glasses Medications: Reviewed with patient. Current Outpatient Medications: busPIRone (BUSPAR) 15 mg tablet, buspirone 15 mg tablet, Disp: , Rfl: cetirizine (ZyrTEC) 10 mg capsule, daily., Disp: , Rfl: doxepin (SINEquan) 25 mg capsule, Take 1 capsule (25 mg total) by mouth nightly., Disp: , Rfl: ibuprofen (ADVIL,MOTRIN) 800 mg tablet, TAKE 1 TABLET BY MOUTH EVERY 6 HOURS NEEDED FOR PAIN UP TO 15 DAY, Disp: 15 tablet, Rfl: 0 lisinopril (PRINIVIL,ZESTRIL) 5 mg tablet, Take 1 tablet (5 mg total) by mouth in the morning., Disp: , Rfl: melatonin 10 mg tablet, daily., Disp: , Rfl: sertraline (ZOLOFT) 100 mg tablet, 1 tablet (100 mg total)., Disp: , Rfl: tiZANidine (ZANAFLEX) 4 mg tablet, Take 1 tablet (4 mg total) by mouth every 6 (six) hours as needed for muscle spasms. (Patient not taking: Reported on 09/22/2023), Disp: 30 tablet, Rfl: 0 Vitals: 09/22/23 1403 BP: 113/76 Pulse: 70 SpO2: 99% Weight: 107.5 kg (237 lb 1.6 oz) Height: 180.3 cm (5' 11 ) Allergies: Reviewed with patient. Patient has no known allergies. Family History: Family History Problem Relation Age of Onset Hypertension Mother Heart disease Mother chf Asthma Mother Hypertension Father Heart disease Maternal Grandfather Anesthesia problems Neg Hx Bleeding Disorder Neg Hx Social History: Social History Socioeconomic History Marital status: Spouse name: Not on file Number of children: Not on file Years of education: Not on file Highest education level: Not on file Occupational History Not on file Tobacco Use Smoking status: Former Packs/day: 2.00 Years: 7.00 Additional pack years: 0.00 Total pack years: 14.00 Types: Cigarettes Quit date: 11/10/2003 Years since quittin.8 Smokeless tobacco: Current Types: Chew Vaping Use Vaping Use: Never used Substance and Sexual Activity Alcohol use: Yes Comment: 1-2 times per year Drug use: No Sexual activity: Defer Other Topics Concern Coffee Not Asked Tea Not Asked Carbonated Beverages Not Asked Chocolate Not Asked Social History Narrative Not on file Social Determinants of Health Financial Resource Strain: Not on file Food Insecurity: Not on file Transportation Needs: Not on file Physical Activity: Not on file Stress: Not on file Social Connections: Not on file Interpersonal Safety: Not on file Housing Instability: Not on file Travel History: Denies recent travel. ROS: All 11 systems have been reviewed: Review of Systems Constitutional: Negative for chills, fatigue and fever. Respiratory: Negative for cough, shortness of breath and wheezing. Cardiovascular: Negative for chest pain/discomfort. All other systems are reviewed and are negative except as noted. Physical Examination: Vital signs BP 113/76 Pulse 70 Ht 180.3 cm (5' 11 ) Wt 107.5 kg (237 lb 1.6 oz) SpO2 99% BMI 33.07 kg/m Physical Exam Vitals and nursing note reviewed. Constitutional: Appearance: Normal appearance. He is obese. Cardiovascular: Rate and Rhythm: Normal rate. Pulmonary: Breath sounds: Normal breath sounds. Musculoskeletal: Cervical back: Neck supple. Skin: General: Skin is warm and dry. Neurological: Mental Status: He is alert and oriented to person, place, and time. Psychiatric: Mood and Affect: Mood normal. Behavior: Behavior normal. Laboratory DATA: Lab Results Component Value Date CO2 30 04/13/2018 Lab Results Component Value Date WBC 6.4 12/17/2017 HGB 15.8 12/17/2017 HCT 44.9 12/17/2017 MCV 86 12/17/2017 PLT 264 12/17/2017 No results found for: FERRITIN Chemistry Component Value Date/Time K 3.8 04/13/201835 CL 103 04/13/201835 CO2 30 04/13/2018 0835 BUN 12 04/13/2018 0835 CREATININE 0.82 04/13/2018834 GLU 89 04/13/2018834 Component Value Date/Time CALCIUM 8.8 04/13/2018834 ALKPHOS 70 04/13/2018834 AST 20 04/13/2018834 ALT 20 04/13/2018834 No results found for: TSH Echo complete W/3D Recon Independ wkstn Result Date: 08/18/2023 1 1 [facility] Heart Station [address] [place] [address] [phone] (fax) Echocardiogram-[facility] Name: ELEAZAR HARRISON Study Date: 08/18/2023 12:34 PM B/P: 126 mmHg/86 mmHg HR: Date of : 1980 Location: [facility] Height: 72 in. Age: 42 year(s) Patient Room: Weight: 241 lb. Gender: Male Patient Status: OutPt BSA: 2.31 m2 Indication: Dyspnea on exertion Examination: Echocardiogram (Complete), Lumason Contrast ImageQuality: Poor Patient Consent: Procedure explained to patient Conclusions Left Ventricle: The left ventricle is normal size. Global left ventricular systolic function is difficult to assess but appears reduced. The EF is 45 % visually. Left ventricular wall thickness is normal. Regional wall motionabnormalities (see diagram). Diastolic dysfunction. Concentric cardiac remodeling. Right Ventricle:The right ventricle is normal in size. Normal right ventricular systolic function. Unable to assessright sided pressures due to lack of measurable tricuspid regurgitation. Left Atrium: The left atrium appears normal in size. Overall Conclusions: Due to suboptimal imaging Lumason contrast was administered for opacification and better delineation of endocardial borders. No significant valvular abnormalities Measurements Left Ventricle Label Value Normal Value LVOT PGmax 4 mmHg LVEF visual 45 % LVDd, 2D 4.53 cm (4.2cm - 5.9cm) LVDs, 2D 3.34 cm (2.1cm - 4cm) IVSd, 2D 0.9 cm (0.6cm - 1.1cm) LVPWd, 2D 1.01 cm (0.6cm - 1cm) LV Mass, 2D ASE 145.48 g LV Mass Index, 2D ASE 63 g/m?? (50g/m?? - 102.4g/m??) RWT, MM 0.45 (0 - 0.42) LVSVI, 2D 20.8 ml/m2 Right Ventricle Label Value Normal Value TAPSE 2.54 cm Aortic Valve Label Value Normal Value AV DVI 0.58 Mitral Valve Label Value Normal Value MV E Vmax 0.86 m/s MV A Vmax 0.44 m/s MV E/A 1.95 MV E/E' lateral 12.3 MV E' lateral 0.07 m/s Aorta Label Value Normal Value AoRoot, 2D 2.8 cm (1.4cm - 3.8cm) Valvular Assessment LVOT 0.7 - 1.1 m/sec AorticValve 1.0 - 1.7 m/sec Mitral Valve 0.6 - 1.3 m/sec Tricuspid Valve 0.3 - 0.7 m/sec Pulmonic Valve 0.6 - 0.9 m/sec Regurgitation No No No No Max Velocity 1.00 m/sec 1.72 m/s 0.86 m/sec 1.33 m/s Max Gradient 12.00 mmHg 7.00 mmHg Findings Left Ventricle: The left ventricle is normal size. Global left ventricular systolic function is difficult to assess but appears reduced. The EF is 45 % visually. Left ventricular wall thickness is normal. Regional wall motion abnormalities (see diagram). The apical anterior, apical septal, apical inferior, apical lateral and apex left ventricular wall segments are hypokinetic. All remaining scored left ventricular wall segments are with no wall motion abnormalities. Diastolic dysfunction. Concentric cardiac remodeling. Right Ventricle: The right ventricle is normal in size. Normal right ventricular systolic function. Unable to assess right sided pressures due to lack of measurable tricuspid regurgitation. Left Atrium: The left atrium appears normal in size. Right Atrium: The right atrium appears normal in size. Mitral Valve: The mitral valve is normal in mobility and thickness. No mitral regurgitation. Aortic Valve: The aortic valve is normal. No aortic valve regurgitation. Tricuspid Valve: Normal tricuspid valve. No tricuspid regurgitation. Pulmonic Valve: Normal pulmonary valve. No pulmonary regurgitation. Aorta: The aortic root exhibits normal size. Great Vessels: IVC: Normal size and course of the IVC. Pericardium: No pericardial effusion. Procedure Staff Reading Group: [facility] Insole Lip Turner: Precious Meléndez RDCS Ordering Physician: VIRGILIO SANTOS MD Wall Motion Scores -1 - hyperkinesia, 0 - not evaluated, 1 - normal, 2 - hypokinesia, 3 - akinesia, 4 - dyskinesia DATA: 09/24/15 PSG: AHI = 39.76 REM Min SpO2 = 83% 10/13/15 Titration Study: Weight: 239 lbs, CPAP 14 cm H20 pressure DME: SANCHEZ Data card was available for PAP usage data download. PAP compliance is excellent. Echo complete W/3D Recon Independ wkstn Result Date: 08/18/2023 1 1 [facility] Heart Station [address] [place] [address] [phone] (fax) Echocardiogram-[facility] Name: ELEAZAR HARRISON Study Date: 08/18/2023 12:34 PM B/P: 126 mmHg/86 mmHg HR: Date of : 1980 Location: [facility] Height: 72 in. Age: 42 year(s) Patient Room: Weight: 241 lb. Gender: Male Patient Status: OutPt BSA: 2.31 m2 Indication: Dyspnea on exertion Examination: Echocardiogram (Complete), Lumason Contrast ImageQuality: Poor Patient Consent: Procedure explained to patient Conclusions Left Ventricle: The left ventricle is normal size. Global left ventricular systolic function is difficult to assess but appears reduced. The EF is 45 % visually. Left ventricular wall thickness is normal. Regional wall motionabnormalities (see diagram). Diastolic dysfunction. Concentric cardiac remodeling. Right Ventricle:The right ventricle is normal in size. Normal right ventricular systolic function. Unable to assessright sided pressures due to lack of measurable tricuspid regurgitation. Left Atrium: The left atrium appears normal in size. Overall Conclusions: Due to suboptimal imaging Lumason contrast was administered for opacification and better delineation of endocardial borders. No significant valvular abnormalities Measurements Left Ventricle Label Value Normal Value LVOT PGmax 4 mmHg LVEF visual 45 % LVDd, 2D 4.53 cm (4.2cm - 5.9cm) LVDs, 2D 3.34 cm (2.1cm - 4cm) IVSd, 2D 0.9 cm (0.6cm - 1.1cm) LVPWd, 2D 1.01 cm (0.6cm - 1cm) LV Mass, 2D ASE 145.48 g LV Mass Index, 2D ASE 63 g/m?? (50g/m?? - 102.4g/m??) RWT, MM 0.45 (0 - 0.42) LVSVI, 2D 20.8 ml/m2 Right Ventricle Label Value Normal Value TAPSE 2.54 cm Aortic Valve Label Value Normal Value AV DVI 0.58 Mitral Valve Label Value Normal Value MV E Vmax 0.86 m/s MV A Vmax 0.44 m/s MV E/A 1.95 MV E/E' lateral 12.3 MV E' lateral 0.07 m/s Aorta Label Value Normal Value AoRoot, 2D 2.8 cm (1.4cm - 3.8cm) Valvular Assessment LVOT 0.7 - 1.1 m/sec AorticValve 1.0 - 1.7 m/sec Mitral Valve 0.6 - 1.3 m/sec Tricuspid Valve 0.3 - 0.7 m/sec Pulmonic Valve 0.6 - 0.9 m/sec Regurgitation No No No No Max Velocity 1.00 m/sec 1.72 m/s 0.86 m/sec 1.33 m/s Max Gradient 12.00 mmHg 7.00 mmHg Findings Left Ventricle: The left ventricle is normal size. Global left ventricular systolic function is difficult to assess but appears reduced. The EF is 45 % visually. Left ventricular wall thickness is normal. Regional wall motion abnormalities (see diagram). The apical anterior, apical septal, apical inferior, apical lateral and apex left ventricular wall segments are hypokinetic. All remaining scored left ventricular wall segments are with no wall motion abnormalities. Diastolic dysfunction. Concentric cardiac remodeling. Right Ventricle: The right ventricle is normal in size. Normal right ventricular systolic function. Unable to assess right sided pressures due to lack of measurable tricuspid regurgitation. Left Atrium: The left atrium appears normal in size. Right Atrium: The right atrium appears normal in size. Mitral Valve: The mitral valve is normal in mobility and thickness. No mitral regurgitation. Aortic Valve: The aortic valve is normal. No aortic valve regurgitation. Tricuspid Valve: Normal tricuspid valve. No tricuspid regurgitation. Pulmonic Valve: Normal pulmonary valve. No pulmonary regurgitation. Aorta: The aortic root exhibits normal size. Great Vessels: IVC: Normal size and course of the IVC. Pericardium: No pericardial effusion. Procedure Staff Reading Group: [facility] Insole Lip Turner: Precious Meléndez RDCS Ordering Physician: VIRGILIO SANTOS MD Wall Motion Scores -1 - hyperkinesia, 0 - not evaluated, 1 - normal, 2 - hypokinesia, 3 - akinesia, 4 - dyskinesia Impression: Eleazar was seen today for new patient and sleep apnea. Diagnoses and all orders for this visit: Obstructive sleep apnea (adult) (pediatric) - Ambulatory referral to Sleep Medicine - CPAP: 14 C-Flex: 3 CPAP use counseling Class 1 obesity with body mass index (BMI) of 33.0 to 33.9 in adult, unspecified obesity type, unspecified whether serious comorbidity present RONALD with adherence to nocturnal ventilatory support on a nightly basis. Obesity Body mass index is 33.07 kg/m . CHF Cardiomyopathy Essential HTN Plan: Discussed diagnosis, its evaluation, treatment and usual course. All questions answered. Educational material distributed. Orders Placed This Encounter Procedures CPAP: 14 C-Flex: 3 Scheduling Instructions: Length of Need: 12 months -Full Face Interface1/3mos -Full Face Cushion 1/mo -Nasal Cushion 2/mo, -Nasal Mask 1/3mos -Pillows 2/mo -Htd Tubing 1/3mos -Headgear 1/6mos -Chin Strap1/6mos -Non-Disposable Filter1/6mos -Disposable Filter2/mo -Water Chamber1/6mos -Std Tubing 1/3 mos -Add heat humidification with tubing Order Specific Question: Please specify Answer: CPAP: 14 C-Flex: 3 Order Specific Question: The face to face evaluation was performed on Answer: 09/22/2023 No orders of the defined types were placed in this encounter. He is to continue CPAP 14 cm H20 on a nightly basis. New mask and supplies as needed. Independently reviewed and interpreted data download and ESS. Diet and exercise were discussed in detail. Any age appropriate or routine screening per PCP. Follow up in 3-4 Months time. If his condition should change prior to this he is encouraged to giveour office a call. Discussed triggers to call back before follow up including weight change > 10%, major medical issues including stroke, arrhythmia or heart attack, or significant change in symptoms. EDUCATION: Driving precautions were reviewed. I advised the patient not to drive if sleepy, and to conductor pullman if sleepiness occurs while driving. Above plan as discussed with the patient who acknowledged understanding and agreement. Health risks associated with untreated RONALD were discussed (cardiopulmonary, cerebrovascular, and anesthesia/sedative-related). Discussed triggers to call back before next visit including weight change > 10%, major medical issues including stroke, arrhythmia or heart attack, or significant change in symptoms. This note is dictated with the use of M*Modal.Please note that this dictation was completed with computer voice recognition software. Quite often unanticipated grammatical, syntax, homophones, and other interpretive errors are inadvertently transcribed by the computer software. Please disregard these errors. Please excuse any errors that have escaped final proofreading. Nicki Davenport [facility] Office: [phone] 2:25 PM on 09/22/2023 CC: [facility] RAMESH Dixon 09/22/23 1426 documented in this [facility]03-13-2024 Instructions* Patient Instructions* RAMESH Dixon - 09/22/2023 2:00 PM EDT If you re looking for general health and wellness resources, please visit [email or web address] documented in this [facility]03-04-2024 History of Present illness Narrative* Anthony Mcneill Jr., MD - 09/13/2023 7:16 PM EST Did not keep appointment. I instructed staff to reschedule the patient. documented in this [facility]03-04-2024 Miscellaneous Notes* Telephone Encounter - Anthony Mcneill Jr., MD - 09/13/2023 7:16 PM EST Did not keep appointment. Reschedule within 3 months [facility] Tele[facility] encounter Note* Telephone Encounter - Anthony Mcneill Jr., MD - 09/13/2023 7:16 PM EST Did not keep appointment. Reschedule within 3 months [facility]01-16-2024 Miscellaneous Notes* Telephone Encounter - Rody Johnson Velma - 07/27/2023 12:00 PM EST Pt LVM to r/s his GRAPHICS COORDINATOR appt due to getting called into work. Routed to Javier to r/s [facility] Telephone encounter Note* Telephone Encounter - Rody Elizabeth Carreon - 07/27/2023 12:00 PM EST Pt LVM to r/s his GRAPHICS COORDINATOR appt due to getting called into work. Routed to Javier to r/s [facility]01-09-2024 Miscellaneous Notes* Telephone Encounter - Rody Carreon - 07/20/2023 5:54 PM EST Sleep referral received from Sadiq De La Torre NP/ scanned into MM. Scheduled GRAPHICS COORDINATOR appt with SK on 07/28. NPP emailed to pt- says can print to complete. Routed to Denisa to [facility] late add. 2016 PSG/ Titration both in Onbase- scored at 3% (current ins [facility]) . DME is [facility]. Pt says no complaints, using nightly- just needs new supplies and new PCP wants this to be done through sleep provider. Per 2016 study- CPAP of 14 cwp was ordered. Pt advised to bring his PAP machine to appt for DL- will do. *was seen by SK in 2017- not seen since then. documented in [facility] encounterH[facility] HospitalVIOSO [facility] [id number] Telephone encounter Note* Telephone Encounter - Rody Carreon - 07/20/2023 5:54 PM EST Sleep referral received from Sadiq De La Torre, GRAPHICS COORDINATOR/ scanned into MM. Scheduled GRAPHICS COORDINATOR appt with SK on 07/28. NPP emailed to pt- says can print to complete. Routed to Denisa to [facility] late add. 2015 PSG/ Titration both in Onbase- scored at 3% (current ins [facility]) . DME is [facility]. Pt says no complaints, using nightly- just needs new supplies and new PCP wants this to be done through sleep provider. Per 2016 study- CPAP of 14 cwp was ordered. Pt advised to bring his PAP machine to appt for DL- will do. *was seen by SK in 2017- not seen since then. [facility] Chest pain, unspecified type- Primary documented in this encounter [employer] Phone: evaluation note* Diagnosis Sinus node dysfunction (HCC)- Primary Sinoatrial node dysfunction [facility] Diagnosis Pacemaker reprogramming/check Fitting and adjustment of cardiac pacemaker documented [facility] this [facility]* Diagnosis Atrial fibrillation, unspecified type (HCC)- Primary documented [facility]* Diagnosis Pacemaker lead failure, initial encounter- Primary Chronic systolic (congestive) heart failure (HCC) Pacemaker Cardiac pacemaker in situ Obesity, Class II, BMI 35-39.9 Obesity, unspecified documented [facility] this [facility]* Diagnosis Obstructive sleep apnea (adult) (pediatric)- Primary CPAP use counseling Class 1 obesity with body mass index (BMI) of 33.0 to 33.9 in adult, unspecified obesity type, unspecified whether serious comorbidity present [facility]* Diagnosis Pacemaker- Primary Cardiac pacemaker in situ Failure of pacemaker lead, initial encounter Essential hypertension, benign Obesity, Class II, BMI 35-39.9 Obesity, unspecified Syncope and collapse Chronic systolic CHF (congestive heart failure) ([facility]) Chronic systolic heart failure AV block Atrioventricular block, unspecified PVC (premature ventricular contraction) Other premature beats [facility]* Diagnosis Paroxysmal atrial fibrillation (HCC)- Primary Atrial fibrillation Palpitations Pacemaker reprogramming/check Fitting and adjustment of cardiac pacemaker Syncope and collapse Chronic systolic CHF (congestive heart failure) ([facility]) Chronic systolic heart failure AV block Atrioventricular block, unspecified PVC (premature ventricular contraction) Other premature beats documented [facility] this [facility]* Diagnosis Chronic systolic (congestive) heart failure (HCC)- Primary Pacemaker Cardiac pacemaker in situ CHB (complete heart block) ([facility]) Atrioventricular block, complete Syncope and collapse Chronic systolic CHF (congestive heart failure) (HCC) Chronic systolic heart failure AV block Atrioventricular block, unspecified PVC (premature ventricular contraction) Other premature beats documented [facility] this [facility]* Diagnosis Encounter for preoperative anesthesiology assessment for cardiac surgery- Primary Syncope and collapse Chronic systolic CHF (congestive heart failure) ([facility]) Chronic systolic heart failure AV block Atrioventricular block, unspecified PVC (premature ventricular contraction) Other premature beats documented in this encounter [facility]* Diagnosis Paroxysmal atrial fibrillation (HCC) Atrial fibrillation Syncope and collapse Chronic systolic CHF (congestive heart failure) (HCC) Chronic systolic heart failure AV block Atrioventricular block, unspecified PVC (premature ventricular contraction) Other premature beats documented [facility] this [facility]* Diagnosis Pacemaker Cardiac pacemaker in situ Failure of pacemaker lead, initial encounter Syncope and collapse Chronic systolic CHF (congestive heart failure) ([facility]) Chronic systolic heart failure AV block Atrioventricular block, unspecified PVC (premature ventricular contraction) Other premature beats documented [facility]* Diagnosis Pacemaker reprogramming/check Fitting and adjustment of cardiac pacemaker Syncope and collapse Chronic systolic CHF (congestive heart failure) ([facility]) Chronic systolic heart failure AV block Atrioventricular block, unspecified PVC (premature ventricular contraction) Other premature beats documented [facility] this [facility]* Diagnosis Pacemaker Cardiac pacemaker in situ Failure of pacemaker lead, initial encounter Pacemaker reprogramming/check Fitting and adjustment of cardiac pacemaker documented in this encounter [facility] Discharge instructions* Attachments The following attachments cannot be sent through Care Everywhere. * Chest Pain (Polish) documented in this encounterBON [place] Work Phone: InstructionsNot on filedocumented in this encounter [facility] SystemInstructionsNot on filedocumented in this encounter [facility] SystemInstructionsNot on filedocumented in this encounter [facility] SystemReason for referral (narrative)* Outpatient Procedure (Routine) - Authorized Specialty Diagnoses / Procedures Referred By Contac t Referred To Contact [facility] [place] Diagnoses Sinus node dysfunction (HCC) Procedures ECG COMPLETE ECG ROUTINE ECG W/LEAST 12 LDS W/I&R Andrea Baez MD [address] [place] [address] [address] Referral ID Status Reason Start Date Expiration Date Visits Requested Visits Authorized [id number] Authorized Auto-Generat ed Referral 04/26/2025 1 1 [facility] for referral (narrative)* Outpatient Procedure (Routine) - Closed Specialty Diagnoses / Procedures Referred By Contac t Referred To Contact [facility] Diagnoses Pacemaker reprogramming/check Procedures CARDIAC IMPLANTABLE DEVICE CHECK Card Eps [facility] [place] [address] [place] [address] [address] Referral ID Status Reason Start Date Expiration Date V isits Requested Visits Authorized [id number] Closed Auto-Generate d Referral 04/26/2024 04/26/2025 1 1 Electronically signed by [facility] [place] Provider at 06/01/2024 7:38 AM EST [facility] for referral (narrative)* Outpatient Procedure (Routine) - Authorized Specialty Diagnoses / Procedures Referred By Contac t Referred To Contact [facility] [place] Diagnoses Atrial fibrillation, unspecified type (HCC) Procedures ECG COMPLETE ECG ROUTINE ECG W/LEAST 12 LDS W/I&R Clint Hilton MD [address] [place] [address] [address] Referral ID Status Reason Start Date Expiration Date Visits Requested Visits Authorized [id number] Authorized Auto-Generat ed Referral 06/06/2025 1 1 [facility] for referral (narrative)* Transition of Care (Routine) - Authorized Specialty Diagnoses / Procedures Referred By Ellen t Referred To Contact Procedures CARDIOVASCULAR MEDICINE OP FOLLOW UP APPT ORDER Clint Hilton MD [address] [place] [address] Phone: tel: fax: Referral ID Status Reason Start Date Expiration Date Visits Requested Visits Authorized [id number] Authorized PCP Requested Referral 11/07/2024 11/07/2025 1 1 [facility] for visit Narrative* Outpatient Procedure (Routine) - Closed Specialty Diagnoses / Procedures Referred By Ellen t Referred To Contact [facility] Diagnoses Pacemaker reprogramming/check Procedures CARDIAC IMPLANTABLE DEVICE CHECK Card Eps [facility] [place] [address] [place] [address] [address] Referral ID Status Reason Start Date Expiration Date V isits Requested Visits Authorized [id number] Closed Auto-Generate d Referral 04/26/2024 04/26/2025 1 1 [facility] for visit Narrative* Outpatient Procedure (Routine) - Closed Specialty Diagnoses / Procedures Referred By Ellen t Referred To Contact [facility] Diagnoses Pacemaker reprogramming/check Procedures CARDIAC IMPLANTABLE DEVICE CHECK Cardiology [address] [place] [address] Phone: tel: [address] [address] Referral ID Status Reason Start Date Expiration Date V isits Requested Visits Authorized [id number] Closed Auto-Generate d Referral 09/20/2024 09/20/2025 1 1 [facility] for visit Narrative* Outpatient Procedure (Routine) - Closed Specialty Diagnoses / Procedures Referred By Contjethro t Referred To [facility] Diagnoses Pacemaker Failure of pacemaker lead, initial encounter Procedures ECG COMPLETE ECG ROUTINE ECG W/LEAST 12 LDS W/I&R Clint Hilton MD [address] [place] [address] Phone: tel: fax: [place] [address] Referral ID Status Reason Start Date Expiration Date V isits Requested Visits Authorized [id number] Closed Auto-Generate d Referral 09/13/2024 09/13/2025 1 1 [facility] Summary Purpose Family History No Family History Records FoundNo Family History Records FoundNo Family History Records FoundNo Family History Records FoundNo Family History Records FoundNo Family History Records FoundNo Family History Records Found Advance Directives No Advanced Directives Records FoundNo Advanced Directives Records FoundNo Advanced Directives Records FoundNo Advanced Directives Records FoundNo Advanced Directives Records FoundNo Advanced Directives Records FoundNo Advanced Directives Records Found History of Past Illness Problem Noted Date Resolved Date Syncope and collapse 05/14/2005 04/14/2016 Assessments Diagnosis Atrial fibrillation, unspecified type (HCC)- Primary Diagnosis Cardiac pacemaker in situ- Primary Reason for Referral Specialty Diagnoses / Procedures Referred By Contac t Referred To Contact [facility] [place] Diagnoses CHB (complete heart block) (HCC) AICD lead malfunction Cardiac pacemaker in situ Cardiac pacemaker in situ Palpitation Procedures CARDIOVASCULAR MEDICINE OP FOLLOW UP APPT ORDER Andrea Baez MD [address] [place] [address] [place] [address] Referral ID Status Reason Start Date Expiration Date Visits Requested Visits Authorized [id number] Ref Not Required PCP Requested Referral 06/01/2025 1 1 Specialty Diagnoses / Procedures Referred By Contac t Referred To Contact Procedures CARDIOVASCULAR MEDICINE OP FOLLOW UP APPT ORDER Clint Hilton MD [address] [place], [place] [id number] Referral ID Status Reason Start Date Expiration Date Visits Requested Visits Authorized [id number] Authorized PCP Requested Referral 07/26/2024 07/26/2025 1 1 Additional Source Comments (unrecognized sect ion and content) No Status Records FoundNo Status Records FoundNo Status Records FoundNo Status Records FoundNo Status Records FoundNo Status Records FoundNo Status Records Found INFORMATION SOURCE (unrecogn ized section and content) DATE CREATED AUTHOR 06/04/2020 [facility] DATE CREATED AUTHOR AUTHOR'S ORGANIZ ATION 08/22/2021 [facility] DATE CREATED AUTHOR AUTHOR'S ORGANIZ ATION 04/16/2022 [facility] DATE CREATED AUTHOR AUTHOR'S ORGANIZ ATION 08/10/2023 [facility] DATE CREATED AUTHOR AUTHOR'S ORGANIZ ATION 12/23/2023 [facility] DATE CREATED AUTHOR AUTHOR'S ORGANIZ ATION 11/29/2024 [facility] DATE CREATED AUTHOR AUTHOR'S ORGANIZ ATION 03/20/2025 [facility] Source Comments (unrecognize d section and content) In the event this informatio n is protected by the Federal Confidentiality of Alcohol and Drug Abuse Patient Records regulations: The Federal rules restrict any use of the information to criminally investigate or prosecute any alcohol or drug abuse patient.[facility] the event this information is protected by the Federal Confidentiality of Alcohol and Drug Abuse Patient Records regulations: The Federal rules restrict any use of the information to criminally investigate or prosecute any alcohol or drug abuse patient.[facility] the event this information is protected by the Federal Confidentiality of Alcohol and Drug Abuse Patient Records regulations: The Federal rules restrict any use of the information to criminally investigate or prosecute any alcohol or drug abuse patient.[facility] Hospital[facility] the event this information is protected by the Federal Confidentiality of Alcohol and Drug Abuse Patient Records regulations: The Federal rules restrict any use of the information to criminally investigate or prosecute any alcohol or drug abuse patient.[facility] the event this information is protected by the Federal Confidentiality of Alcohol and Drug Abuse Patient Records regulations: The Federal rules restrict any use of the information to criminally investigate or prosecute any alcohol or drug abuse patient.[facility] Hospital[facility] the event this information is protected by the Federal Confidentiality of Alcohol and Drug Abuse Patient Records regulations: The Federal rules restrict any use of the information to criminally investigate or prosecute any alcohol or drug abuse patient.[facility] the event this information is protected by the Federal Confidentiality of Alcohol and Drug Abuse Patient Records regulations: The Federal rules restrict any use of the information to criminally investigate or prosecute any alcohol or drug abuse patient.[facility] the event this information is protected by the Federal Confidentiality of Alcohol and Drug Abuse Patient Records regulations: The Federal rules restrict any use of the information to criminally investigate or prosecute any alcohol or drug abuse patient.[facility] the event this information is protected by the Federal Confidentiality of Alcohol and Drug Abuse Patient Records regulations: The Federal rules restrict any use of the information to criminally investigate or prosecute any alcohol or drug abuse patient.[facility] the event this information is protected by the Federal Confidentiality of Alcohol and Drug Abuse Patient Records regulations: The Federal rules restrict any use of the information to criminally investigate or prosecute any alcohol or drug abuse patient.[facility] the event this information is protected by the Federal Confidentiality of Alcohol and Drug Abuse Patient Records regulations: The Federal rules restrict any use of the information to criminally investigate or prosecute any alcohol or drug abuse patient.[facility] Hospital[facility] the event this information is protected by the Federal Confidentiality of Alcohol and Drug Abuse Patient Records regulations: The Federal rules restrict any use of the information to criminally investigate or prosecute any alcohol or drug abuse patient.[facility] the event this information is protected by the Federal Confidentiality of Alcohol and Drug Abuse Patient Records regulations: The Federal rules restrict any use of the information to criminally investigate or prosecute any alcohol or drug abuse patient.[facility] Hospital[facility] the event this information is protected by the Federal Confidentiality of Alcohol and Drug Abuse Patient Records regulations: The Federal rules restrict any use of the information to criminally investigate or prosecute any alcohol or drug abuse patient.[facility] HospitalIn the event this information is protected by the Federal Confidentiality of Alcohol and Drug Abuse Patient Records regulations: The Federal rules restrict any use of the information to criminally investigate or prosecute any alcohol or drug abuse patient.[facility] HospitalIn the event this information is protected by the Federal Confidentiality of Alcohol and Drug Abuse Patient Records regulations: The Federal rules restrict any use of the information to criminally investigate or prosecute any alcohol or drug abuse patient.[facility] Hospital[facility] the event this information is protected by the Federal Confidentiality of Alcohol and Drug Abuse Patient Records regulations: The Federal rules restrict any use of the information to criminally investigate or prosecute any alcohol or drug abuse patient.[facility] HospitalIn the event this information is protected by the Federal Confidentiality of Alcohol and Drug Abuse Patient Records regulations: The Federal rules restrict any use of the information to criminally investigate or prosecute any alcohol or drug abuse patient.[facility] HospitalIn the event this information is protected by the Federal Confidentiality of Alcohol and Drug Abuse Patient Records regulations: The Federal rules restrict any use of the information to criminally investigate or prosecute any alcohol or drug abuse patient.[facility] HospitalIn the event this information is protected by the Federal Confidentiality of Alcohol and Drug Abuse Patient Records regulations: The Federal rules restrict any use of the information to criminally investigate or prosecute any alcohol or drug abuse patient.[facility] Hospital[facility] the event this information is protected by the Federal Confidentiality of Alcohol and Drug Abuse Patient Records regulations: The Federal rules restrict any use of the information to criminally investigate or prosecute any alcohol or drug abuse patient.[facility] HospitalIn the event this information is protected by the Federal Confidentiality of Alcohol and Drug Abuse Patient Records regulations: The Federal rules restrict any use of the information to criminally investigate or prosecute any alcohol or drug abuse patient.[facility] Reason for Visit (unrecogniz ed section and content) Reason Comments Chest Pain Reason Onset Date Comments Permanent Pacemaker 06/01/2024 Reason Comments Permanent Pacemaker Reason Comments Schedule Surgery OR 79 case Reason Comments New Patient PS09/24/2015Titra tion: 10/13/2015On PAP therapy Sleep Apnea DME: [facility] Specialty Diagnoses / Procedures Referred By Ellen olmos Referred To Contact Pulmonary Medicine / Sleep Medicine Diagnoses Obstructive sleep apnea (adult) (pediatric) Zeferino De La Torre, FINAL FINISHER-NURSE COORDINATOR [address] [place] [address] [facility] Pul Sleep Med [address] [place] [phone] Referral ID Status Reason Start Date Expiration Date Visits Requested Visits Authorized [id number] Pending Review Specialty Services Required 07/20/2023 07/19/2024 [address] Specialty Diagnoses / Procedures Referred By Ellen olmos Referred To Contact [facility] Diagnoses Paroxysmal atrial fibrillation (HCC) Procedures CT CARDIAC W IVCON CT HEART CONTRAST EVAL CARDIAC STRUCTURE&MORPH Clint Hilton MD [address] [place] [address] Phone: tel: fax: [facility] [place] [address] Referral ID Status Reason Start Date Expiration Date V isits Requested Visits Authorized [id number] Closed Auto-Generate d Referral 11/07/2024 12/22/2024 1 1 Reason Comments Radio Main J1 Reason Comments Patient Education EPS - PPM Extract/ C RT-P Reason Comments Courtesy call Device survey Scheduled Active and Recently Administ ered Medications (unrecognized section and content) Medication Order 04/14/2022 04/15/2022 04/16/2022 aspirin chewable tablet 324 mg 324 mg, Oral, ONCE, 1 dose, On Wed04/15/22 at 2014 2014 (Not Given - Provider: Kayla Estrella - Reason: Other - Comment: Pt was given asprin during EMS transport) PRN Medication Order 04/14/2022 04/15/2022 04/16/2022 nitroGLYCERIN (NITROSTAT) SL tablet 0.4 mg 0.4 mg, SubLINGual, EVERY 5 MIN PRN, 3 doses, Starting on Wed04/15/22 at 2002, Until Discontinued, Chest pain, Place 1 tablet under tongue upon chest pain, wait 5 minutes and may repeat up to 3 doses in 15 minutes. Do not crush or break. Care Teams (unrecognized sec tion and content) Control Analyst Relationship Specialty Start Date End Date Lissa Galindo APRN - GRAPHICS COORDINATOR [address] [place] [address] PCP - General 04/15/22 Control Analyst Relationship Specialty Start Date End Date Edwin Hong MD [address] [place] [address] PCP - General Family Medicine 10/07/20 [place] [address] [place] [address] Cook Chili 10/07/20 Control Analyst Relationship Specialty Start Date End Date Edwin Hong MD [address] [place] [address] PCP - General Family Medicine 10/07/20 [place] [address] [place] [address] Cook [place] 10/07/20 Andrea Baez MD [address] [place] [address] Primary Staff Physician Cardiology 06/01/24 Control Analyst Relationship Specialty Start Date End Date Edwin Hong MD [address] [place] [id number] PCP - General Family Medicine 10/07/20 [place] [address] [place] [address] Cook [place]ili 10/07/20 Andrea Baez MD [address] [place] [address] Primary Staff Physician Cardiology 06/01/24 Control Analyst Relationship Specialty Start Date End Date Edwin Hong MD [address] [place] [phone] PCP - General Family Medicine 10/07/20 [place] [address] [place] [address] Cook [place]ili 10/07/20 Andrea Baez MD [address] [place] [phone] Primary Staff Physician Cardiology 06/01/24 Control Analyst Relationship Specialty Start Date End Date Edwin Hong MD [address] [place] [phone] PCP - General Family Medicine 10/07/20 [place] [address] [place] [address] Cook [place]ili 10/07/20 Andrea Baez MD [address] [place] [address] Primary Staff Physician Cardiology 06/01/24 Control Analyst Relationship Specialty Start Date End Date Edwin Hong MD [address] [place] [address] PCP - General Family Medicine 10/07/20 [place] [address] [place] [address] Cook [place]ili 10/07/20 Andrea Baez MD [address] [place] [phone] Primary Staff Physician Cardiology 06/01/24 Control Analyst Relationship Specialty Start Date End Date Edwin Hong MD [address] [place] [address] PCP - General Family Medicine 10/07/20 [place] [address] [place] [address] Yacht Captain Cardiology 10/07/20 Andrea Baez MD [address] [place] [phone] Primary Staff Physician Cardiology 06/01/24 Erwin Waite MD [address] [place] [address] Yacht Captain Cardiology 08/14/24 Control Analyst Relationship Specialty Start Date End Date Services, [facility] [address] [place], [place] PCP - General Family Medicine 04/24/20 Control Analyst Relationship Specialty Start Date End Date Services, [facility] [address] [place], [place] PCP - General Family Medicine 04/24/20 Control Analyst Relationship Specialty Start Date End Date Services, [facility] [address] [place] PCP - General Family Medicine 04/24/20 Control Analyst Relationship Specialty Start Date End Date Services, [facility] [address] [place] PCP - General Family Medicine 04/24/20 Control Analyst Relationship Specialty Start Date End Date Services, [facility] [address] [place] PCP - General Family Medicine 04/24/20 Control Analyst Relationship Specialty Start Date End Date Edwin Hong MD [address] [place] [address] PCP - General Family Medicine 10/07/20 [place] [address] [place] [address] Yacht Captain Cardiology 10/07/20 Andrea Baez MD [address] [place] [address] Primary Staff Physician Cardiology 06/01/24 Erwin Waite MD [facility] [place] [address] Yacht Captain Cardiology 08/14/24 Control Analyst Relationship Specialty Start Date End Date Edwin Hong MD [address], [place] [phone] PCP - General Family Medicine 10/07/20 [place] [address] [facility] [place] [address] Yacht Captain Cardiology 10/07/20 Andrea Baez MD [address] [place] [address] Primary Staff Physician Cardiology 06/01/24 Erwin Waite MD [address] [place] [address] Yacht Captain Cardiology 08/14/24 Control Analyst Relationship Specialty Start Date End Date Edwin Hong MD [address] [place] [address] PCP - General Family Medicine 10/07/20 [place] [address] [place] [address] Yacht Captain Cardiology 10/07/20 Andrea Baez MD [address] [place] [address] Primary Staff Physician Cardiology 06/01/24 Erwin Waite MD [address] [place] [address] Yacht Captain Cardiology 08/14/24 Control Analyst Relationship Specialty Start Date End Date Joanna Yee, NURSE COORDINATOR [address] [place] [address] [place] [id number] PCP - General Family Medicine 10/16/24 [place] [address] [place] [address] Yacht Captain Cardiology 10/07/20 Andrea Baez MD [address] [place] [address] Primary Staff Physician Cardiology 06/01/24 Control Analyst Relationship Specialty Start Date End Date Joanna Yee, MYA [facility] [address] [place] [address] PCP - General Family Medicine 10/16/24 [place] [address] [place] [address] Yacht Captain Cardiology 10/07/20 Andrea Baez MD [address] [place], [place] [phone] Primary Staff Physician Cardiology 06/01/24 Control Analyst Relationship Specialty Start Date End Date Joanna Yee CNP [facility] [place] [address] PCP - General Family Medicine 10/16/24 [place] [address] [place] [address] Yacht Captain Cardiology 10/07/20 Andrea Baez MD [address] [place], [place] [id number] Primary Staff Physician Cardiology 06/01/24 Control Analyst Relationship Specialty Start Date End Date Joanna eYe CNP [facility] [place] [address] PCP - General Family Medicine 10/16/24 [place] [address] [facility] [place] [address] Yacht Captain Cardiology 10/07/20 Andrea Baez MD [address] [place] [address] Primary Staff Physician Cardiology 06/01/24 Control Analyst Relationship Specialty Start Date End Date Joanna Yee CNP [address] [place] [address] [place] [address] PCP - General Family Medicine 10/16/24 [place] [address] [facility] [place] [address] Yacht Captain Cardiology 10/07/20 Andrea Baez MD [address] [place], [place] [phone] Primary Staff Physician Cardiology 06/01/24 Control Analyst Relationship Specialty Start Date End Date Joanna Yee CNP [address] [place] [address] [place] [address] PCP - General Family Medicine 10/16/24 [place] [address] [facility] [place] [address] Yacht Captain Cardiology 10/07/20 Andrea Baez MD [address] [place] [phone] Primary Staff Physician Cardiology 06/01/24 Control Analyst Relationship Specialty Start Date End Date Joanna Yee CNP [address] [place] [address] [place] [address] PCP - General Family Medicine 10/16/24 [place] [address] [facility] [place] [address] Yacht Captain Cardiology 10/07/20 Andrea Baez MD [address] [place] [address] Primary Staff Physician Cardiology 06/01/24 Control Analyst Relationship Specialty Start Date End Date Joanna Yee CNP [facility] [address] PCP - General Family Medicine 10/16/24 Virgilio Pena MD [address] [place] [address] Yacht Captain Cardiology 10/07/20 Andrea Baez MD [address] [place] [address] Primary Staff Physician Cardiology 06/01/24 FOR RECORDS PERTAINING TO PATIENTS WHO ARE OR HAVE BEEN ENROLLED IN A CHEMICAL DEPENDENCY/SUBSTANCEABUSE PROGRAM, SOME INFORMATION MAY BE OMITTED. This clinical summary was aggregated from multiple sources. Caution should be exercised in using it in the provision of clinical care. This summary normalizes information from multiple sources, and as a consequence, information in this document may materially change the coding, format and clinical context of patient data. In addition, data may be omitted in some cases. CLINICAL DECISIONS SHOULD BE BASED ON THE PRIMARY CLINICAL RECORDS. [facility] [employer] [facility]. provides no warranty or guarantee of the accuracy or completeness of information in this document.
--- OUTSIDE RECORDS SUMMARY | 2025-04-17 07:42 | XMS_ITS | Clinical Summary ---
Author Organization Tiempo tem Address [id number] [address] [place] [address] Care Team Providers Care Boring Machine Set Up Operator Name Role Phone Services, [facility] Primary Care Provider Allergies No known active allergies Medications doxepin (SINEquan) 25 mg capsule Take 1 capsule (25 mg total) by mouth nightly. 6 Active sertraline (ZOLOFT) 100 mg tablet 1 tablet (100 mg total). Active ibuprofen (ADVIL,MOTRIN) 800 mg tablet TAKE 1 TABLET BY MOUTH EVERY 6 HOURS NEEDED FOR PAIN UP TO 15 DAY 15 tablet 0 7 Active lisinopril (PRINIVIL,ZESTR IL) 5 mg tablet Take 1 tablet (5 mg total) by mouth in the morning. Active busPIRone (BUSPAR) 15 mg tablet buspirone 15 mg tablet Active cetirizine (ZyrTEC) 10 mg capsule daily. Active melatonin 10 mg tablet daily. Active tiZANidine (ZANAFLEX) 4 mg tablet Take 1 tablet (4 mg total) by mouth every 6 (six) hours as needed for muscle spasms. 30 tablet 3 Active Additional Information Patient not taking.Reported on 09/22/2023 Active Problems Problem Noted Date Diagnosed Date Sick sinus syndrome 09/22/2023 Sterilization consult 03/19/2022 Urologic disorders 03/19/2022 Overview (05/21/2022): 1. Vasectomy 05/07/2022; Undesired fertility with positive post semen analysis status post left side only vasectomy Dr. Javier romero 02/05/2017 with inability to palpate right vas 2. Bilateral varicoceles ultrasound 02/17/2017 3. Family history prostate cancer patient's father and grandfather 4. Asymptomatic benign prostatic hyperplasia 5. Patient requested prostate cancer screening 03/19/2022 6. Subclinical bilateral hydroceles ultrasound 02/17/2017. Bilateral varicoceles 03/19/2022 Family history of prostate cancer 03/19/2022 Benign prostatic hyperplasia without lower urinary tract symptoms 03/19/2022 Obesity, Class I, BMI 30-34.9 12/16/2020 Cardiomyopathy 05/26/2020 History of fracture of nose 08/08/2019 Recurrent sinusitis 08/08/2019 Neurocardiogenic syncope 01/17/2019 Obstructive sleep apnea 08/21/2016 Allergic rhinitis 08/21/2016 Non morbid obesity 08/21/2016 Benign essential hypertension 06/05/2005 Orthostatic hypotension 06/05/2005 Immunizations Immunization Administration Dates Next Due Tdap 12/17/2016 Family History Medical History Relation Name Comments Hypertension Father Heart disease Maternal Grandfather Asthma Mother Heart disease Mother chf Hypertension Mother Anesthesia problems Neg Hx Bleeding Disorder Neg Hx Relation Name Status Comments Father Alive Maternal Grandfather Mother Alive Social History Tobacco Use Types Packs/Day Years Used Date Smoking Tobacco: Former Cigarettes 2 7 0 11/09/1996 - 11/10/2003 Smokeless Tobacco: Current Chew Tobacco Cessation:Ready to Q uit: Not Asked; Counseling Given: Not Answered Alcohol Use Standard Drinks/Week Comments Yes 0 [...] Sign Reading Time Taken Comments Blood Pressure 113/76 09/22/2023 2:03 PM EDT Pulse 70 09/22/2023 2:03 PM EDT Temperature 36.1 C (96.9 F) 12/02/2022 12:29 PM EDT Respiratory Rate 14 12/02/2022 12:2 9 PM EDT Oxygen Saturation 99% 09/22/2023 2:03 PM EDT Inhaled Oxygen Concentration - - Weight 107.5 kg (237 lb 1.6 oz) 09/22/2023 2:03 PM EDT Height 180.3 cm (5' 11 ) 09/22/2023 2:03 PM EDT Body Mass Index 33.07 09/22/2023 2:03 PM EDT Plan of Treatment Upcoming Encounters Date Type Department Care Team (Late st Contact Info) Description 06/20/2025 2:30 PM EST Office Visit [facility] [address] [facility] [place] [address] Nicki Davenport, JEANNINE-CHOIR DIRECTOR [address], [address] [place] [address] Health Maintenance Due Date Last Done Comments Depression Screening 1991 Adult BMI Screening 09/21/2024 09/22/2023 Tobacco Screening 09/21/2024 09/22/2023 COVID-19 Vaccine (2024-2 6 season) 2025 06/24/2021, 11/23/2020, 10/17/2020 Influenza Vaccine 03/12/2025 06/30/2023, , 05/23/2021, Additional history exists DTaP,Tdap and Td Vaccines (2 - Td or Tdap) 12/17/2026 12/17/2016 Medical Devices Not on file Insurance [employer] Care Teams Boring Machine Set Up Operator Relationship Specialty Start Date End Date Services, [facility] [address] [place], [place] PCP - General Family Medicine 04/24/20
--- OUTSIDE RECORDS SUMMARY | 2025-04-17 07:42 | XMS_ITS | Encounter Summary ---
Author Organization [facility] 365[employer] Sys tem Address [id number] [address] [place] [address] Care Team Providers Care Instructional Coach Name Role Phone Services, [facility] Primary Care Provider Encounter Details Date Type Department Care Team (Late st Contact Info) Description 01/05/2024 [facility]phone [facility] [address] [phone] Diamante Bianchi Social History Tobacco Use Types Packs/Day Years [...] encounter Miscellaneous Notes * Telephone Encounter - Diamante Bianchi - 01/05/2024 2:29 PM EDT Patient called to reschedule appt (said he LM on 12/26 to cancel) and is interested in a mychart video visit. Please call him to schedule. documented in this encounter Plan of Treatment Upcoming Encounters Date Type Department Care Team (Late st Contact Info) Description 06/20/2025 2:30 PM EST Office Visit [facility] [address] [place] [address] Nicki Davenport, REED POLISHER-PERFORATOR [address], [address] [place] [address] documented as of this encounter Visit Diagnoses Not on filedocumented in this encounter Care Teams Instructional Coach Relationship Specialty Start Date End Date Services, [facility] [address] [place] [place] PCP - General Family Medicine 04/24/20 documented as of this encounter
--- OUTSIDE RECORDS SUMMARY | 2025-04-17 07:42 | XMS_ITS | Encounter Summary ---
Author Organization [facility] Address [address] [place] [address] Care Team Providers Care Food Service Sales Representatives Name Role Phone Virgilio Pena MD Unavailable Andrea Galvez MD Unavailable Sara Yee [facility] Primary Care Provide r Source Comments In the event this information is protected by the Federal Confidentiality of Alcohol and Drug AbusePatient Records regulations: The Federal rules restrict any use of the information to criminally investigate or prosecute any alcohol or drug abuse patient.[facility] Encounter Details Date Type Department Care Team (Late st Contact Info) Description 11/21/2024 Get Medical Advice Cardiology [address] [place] [address] Mario Juarez MD [address] [place] [address] Transfer care Social History Tobacco Use Types Packs/Day Years [...] is lower risk 7 06/01/2024 Data from: https://www.neighborhoodatlas.medicine.[facility]/. Last address used for calculation [address] 06/01/2024 Sex and Gender Information Value Date Recorded Sex Assigned at Male 10/07/2020 7:02 AM EDT Legal Sex Male 7:31 AM EST Gender Identity Male 10/07/2020 7:02 AM EDT Sexual Orientation Straight 10/07/2020 7: 02 AM EDT documented as of this encounter Functional Status * Are you deaf or do you have serious difficulty hearing? Answer Date of Assessment Author No 11/11/2024 11:27 AM Patricia Odom RN * Are you blind or do you have serious difficulty seeing, even when wearing glasses? Answer Date of Assessment Author No 11/11/2024 11:27 AM Patricia Odom RN * Do you have serious difficulty walking or climbing stairs? Answer Date of Assessment Author No 11/11/2024 11:27 AM Patricia Odom RN * Do you have difficulty dressing or bathing? Answer Date of Assessment Author No 11/11/2024 11:27 AM Patricia Odom RN * Because of a physical, mental, or emotional condition, do you have difficulty doing errands alone such as visiting a doctor's office or shopping? Answer Date of Assessment Author No 11/11/2024 11:27 AM Patricia Odom RN documented as of this encounter Mental Status * Because of a physical, mental, or emotional condition, do you have serious difficulty concentrating, remembering, or making decisions? Answer Entry Date Author No 11/11/2024 11:27 AM Patricia Odom RN documented in this encounter Plan of Treatment Not on file documented as of this encounter Goals Goal Patient Goal Type Associated Problems Recent Progress Patient-Stated? Author Blood Pressure < 130/80 Blood Pressure 135/77( 025 9:37 AM EDT) No Andrea Galvez MD documented as of this encounter Visit Diagnoses Not on filedocumented in this encounter Care Teams Food Service Sales Representatives Relationship Specialty Start Date End Date Sara Yee, HOME HEALTH CARE SOCIAL WORKER [address] [place] [address] PCP - General Family Medicine 10/16/24 [place] [address] [place] [address] Sas Bi Developer Cardiology 10/07/20 Andrea Galvez MD [address] [place] [address] Primary Staff Physician Cardiology 06/01/24 documented as of this encounter
--- OUTSIDE RECORDS SUMMARY | 2025-04-17 07:42 | XMS_ITS | Encounter Summary ---
Author Organization [facility] Address [address] [place] [address] Care Team Providers Care Wrapper Stripper Name Role Phone Virgilio Pena MD Unavailable Andrea Galvez MD Unavailable Sara Yee [facility] Primary Care Provide r Source Comments In the event this information is protected by the Federal Confidentiality of Alcohol and Drug AbusePatient Records regulations: The Federal rules restrict any use of the information to criminally investigate or prosecute any alcohol or drug abuse patient.[facility] Encounter Details Date Type Department Care Team (Late st Contact Info) Description 10/26/2024 Get Medical Advice Cardiology [address] [place] [address] Mario Juarez MD [address] [place] [address] Blood draw Social History Tobacco Use Types Packs/Day Years Used Date Smoking Tobacco: Former Cigarettes 1 7 1 08/12/1998 - 06/11/2006 Smokeless Tobacco: Current Chew Alcohol Use Standard Drinks/Week Comments Not Currently 0 (1 standard drink = 0.6 oz pur e alcohol) [facility] Area Deprivation Index Answer Date Ronaldo rded National Score (1-100), lower number is lower ri sk 81 06/01/2024 State Score (1-10), lower number is lower risk 7 06/01/2024 Data from: https://www.neighborhoodatlas.medicine.[facility].edu/. Last address used for calculation [address] [...] on filedocumented in this encounter Care Teams Wrapper Stripper Relationship Specialty Start Date End Date Sara Yee, MYA [address] [place] [place] [address] PCP - General Family Medicine 10/16/24 [place] [address] [place] [address] Information Technology Intern Cardiology 10/07/20 Andrea Galvez MD [address] [place] [address] Primary Staff Physician Cardiology 06/01/24 documented as of this encounter
--- OUTSIDE RECORDS SUMMARY | 2025-04-17 07:43 | XMS_ITS | Encounter Summary ---
Author Organization [facility] Address [address] [place] [address] Care Team Providers Care Checker Loader Name Role Phone Edwin Mcgowan MD Primary Care Provider [phone] Virgilio Pena MD Unavailable Andrea Galvez MD Unavailable Erwin Waite MD Unavailable [phone] Sara Yee [facility] Primary Care Provide r Source Comments In the event this information is protected by the Federal Confidentiality of Alcohol and Drug AbusePatient Records regulations: The Federal rules restrict any use of the information to criminally investigate or prosecute any alcohol or drug abuse patient.[facility] Encounter Details Date Type Department Care Team (Late st Contact Info) Description 11/13/2020 Get Medical Advice Cardiology [address] [place] [address] Lucien Irving MD RE: Test Result Question Social History Tobacco Use Types Packs/Day Years Used Date Smoking Tobacco: Former Cigarettes 1 7 1 08/12/1998 - 06/11/2006 Smokeless Tobacco: Current Chew Last attempted to quit: 06/11/2006 Alcohol Use Standard Drinks/Week Comments Yes 0 (1 standard drink = 0.6 oz pur e alcohol) [facility] Area Deprivation Index Answer Date Ronaldo rded National Score (1-100), lower number is lower ri sk Not on file 10/07/2020 State Score (1-10), lower number is lower risk N ot on file 10/07/2020 Data from: https://www.neighborhoodatlas.medicine.[facility].edu/. Last address used for calculation Not on file 10/07/2020 Sex and Gender Information Value Date Recorded Sex Assigned at Male 10/07/2020 7:02 AM EDT Legal Sex Male 7:31 AM EST Gender Identity Male 10/07/2020 7:02 AM EDT Sexual Orientation Straight 10/07/2020 7: 02 AM EDT COVID-19 Exposure Response Date Recorded In the last month, have you been in contact with someone who was confirmed or suspected to have Coronavirus / COVID-19? No / Unsure 11/12/2020 6:44 AM EDT documented as of this encounter Plan of Treatment Not on file documented as of this encounter Visit Diagnoses Not on filedocumented in this encounter Care Teams Checker Loader Relationship Specialty Start Date End Date Edwin Mcgowan MD [address] [place] [address] PCP - General Family Medicine 10/07/20 10/15/24 Sara Yee, LAY UP OPERATOR [facility] [facility] [place] [address] PCP - General Family Medicine 10/16/24 [place] [address] [place] [address] Guest Service Supervisor Cardiology 10/07/20 Andrea Galvez MD [address] [place] [address] Primary Staff Physician Cardiology 06/01/24 Erwin Waite MD [facility] [address] Guest Service Supervisor Cardiology 08/14/24 10/15/24 documented as of this encounter
--- NOTE | 2025-04-17 07:50 | CA_ITS ---
Patient Name: ELEAZAR HARRISON MR#: [id number] : 1980 Exam Date: 04/17/2025 Ordering Doctor: SARAH SANTOS ECHOCARDIOGRAM REPORT PROCEDURE: CA ECHO DOPPLER COMPLETE INDICATIONS: Dilated Cardiomyopathy COMPARISON: None. DESCRIPTION: COMPLETE ECHOCARDIOGRAM Real-time transthoracic echocardiography with 2D, M-mode, spectral and color flow Doppler performed. QUALITY: Technical quality was good. LEFT VENTRICLE: Normal chamber size. Mild concentric left ventricular hypertrophy. Visual estimation of left ventricular ejection fraction is 50-55%. Abnormal septal motion due to pacemaker. LV EF: Lower limits of normal left ventricular ejection fraction, (50-55%). DIASTOLIC: Normal diastolic function. ATRIAL SEPTUM: LEFT ATRIUM: Normal chamber size. RIGHT ATRIUM: Normal chamber size. RIGHT VENTRICLE: Normal chamber size. Normal right ventricular systolic function. Pacer wire present. TRICUSPID VALVE: Normal mobility and thickness. No stenosis with trivial regurgitation. No evidence of pulmonary hypertension. RVSP 28 mmHg. MITRAL VALVE: Normal mobility and thickness. No evidence of mitral valve stenosis. There is no mitral annular calcification. Trivial mitral regurgitation. AORTIC VALVE: Normal trileaflet appearance. No visible sclerosis. Normal leaflet mobility. No evidence of aortic valve stenosis. No aortic regurgitation. AORTIC ROOT: Normal diameter and appearance, measuring 3.5 cm. The ascending aorta is normal in size measuring 2.8 cm. PULMONIC VALVE: Normal thickness and mobility. No stenosis. Trivial regurgitation. PERICARDIUM: No evidence of pericardial effusion. IVC: Collapses with inspiration. Normal size. PLEURA: CONCLUSION: 1. Mild concentric left ventricular hypertrophy with low normal systolic function. LVEF is estimated at 50 to 55%. 2. Normal right ventricular size and systolic function. 3. No significant valvular dysfunction. 4. Normal diastolic function. 5. Normal right-sided pressures. Adult Echocardiography Procedure Report Left Ventricle LVEDD (3.7 - 5.6 cm): 4.40 cm LVESD (2.2 - 4.0 cm): 3.20 cm LVIVS thickness (0.6 - 1.2 cm): 1.22 cm LVPW thickness (0.5 - 1.0 cm): 1.33 cm e': 0.10 m/s E - e': 8.02 LVOT Max Gradient: 3.70 mm[Hg] LVOT Area (cm2): 0.96 m/s Peak Velocity (LVOT): 0.96 m/s Mean Velocity (LVOT): 0.66 m/s LVOT Diameter 1.96 cm Left Ventricular Ejection Fraction: 50-55 % Left Atrium LA Volume Index (2D A2C): 17.24 ml/m2 Left Atrium Systolic Dimension: 4.08 cm Mitral Valve MV E to A Ratio: 1.35 Mitral Valve A-Wave Peak Velocity: 0.58 m/s Mitral Valve E-Wave Peak Velocity: 0.79 m/s Right Ventricle RV Internal Diastolic Dimension: 4.04 cm Aorta AO Root Diam: 3.48 cm Ascending Ao Diam: 2.78 cm Aortic Valve AoV Area (Peak Nickolas): 2.66 cm2, 2.66 cm2 AoV Area (VTI): 2.60 cm2, 2.63 cm2 Peak Velocity(Antegrade Flow): 1.09 m/s, 1.09 m/s Peak Gradient(Antegrade Flow): 4.78 mm[Hg], 4.78 mm[Hg] Mean Velocity(Antegrade Flow): 0.81 m/s, 0.83 m/s Mean Gradient(Antegrade Flow): 2.92 mm[Hg], 3.04 mm[Hg] Velocity Time Integral: 21.18 cm, 21.56 cm Tricuspid Valve Peak Velocity (Regurgitant Flow): 2.44 m/s, 2.44 m/s, 2.47 m/s, 2.48 m/s Pulmonic Valve Mean Gradient: 1.77 mm[Hg], 2.57 mm[Hg] Mean Velocity: 0.62 m/s, 0.74 m/s Peak Velocity: 0.97 m/s Peak Gradient: 2.90 mm[Hg], 4.78 mm[Hg] Right Atrium Right Atrium Systolic Pressure: 56.43 ml, 56.43 ml Dictated by: Cornelius Juárez M.D. on 04/17/2025 at 17:19 Approved by: Cornelius Juárez M.D. on 04/17/2025 at 17:24
== END 2025-04-17 07:39 | disposition home or self-care (01) ==
LOC: CARD 07:40
PROVIDERS: Visit Provider Internal Medicine Cardiovascular Disease
DX: I42.0 Dilated cardiomyopathy (principal)
CPT/HCPCS: 93306; 93356